=== PATIENT | female | born 1955 | race Caucasian/White ===

== ENCOUNTER 2017-09-23 00:06 | Emergency (ER) | payer BC, SELFPAY ==
[2017-09-23 00:08] VITALS: BP 141/72; PULSE 67; RESP 16; TEMP 35.8; O2SAT 100; BMI 27.6
--- NOTE | 2017-09-23 00:16 | NURSING ---
CALLED FOR EKG PER RN REQUEST, PULLED OLD EKG'S FOR
--- NOTE | 2017-09-23 00:26 | EKG12_ITS ---
Test Reason : CP Blood Pressure : / mmHG Vent. Rate : 063 BPM Atrial Rate : 063 BPM P-R Int : 156 ms QRS Dur : 070 ms QT Int : 408 ms P-R-T Axes : 075 054 053 degrees QTc Int : 417 ms Normal sinus rhythm Low voltage QRS Septal infarct , age undetermined Abnormal ECG Confirmed by DEIDRA GREGG, DIMITRI ([id number]), restaurant expeditor KORY FORD ([id number]) on 09/25/2017 2:48:48 PM Referred By: SARAH Confirmed By:DIMITRI GAY MD
--- NOTE | 2017-09-23 00:27 | RAD_ITS ---
STUDY: X-RAY CHEST REASON FOR EXAM: Female, 62 years old. Intermittent chest pain for one hour in region of left breast. TECHNIQUE: PA and lateral chest. COMPARISON: January 19, 2017. FINDINGS: The lungs are clear and expanded. There is no demonstrated pleural abnormality. Normal size heart. Normal mediastinum and yasmine. Normal visualized pulmonary arteries. Normal visualized aortic arch and descending thoracic aorta. Normal visualized thoracic spine. Normal visualized ribs, clavicles, and shoulders. There is no demonstrated abnormality of the visualized soft tissue structures of the upper abdomen. RAD/Chest PA and Lateral IMPRESSION: Normal x-ray examination of the chest. Electronically Signed: Blake Samson MD at 1:22 EDT , Service support ,
--- NOTE | 2017-09-23 00:28 | ED.VISSUMM ---
- ER Visit Summary Date of Service: 09/23/17 Chief Complaint: [] Left-sided chest pain History of Present Illness: The patient is a 62 F [] Physical Examination: When he of left-sided chest pain in her left breast intermittent last admitted a time. Waxes and wanes. She describes it as an pain. It hurts to push on it. She does have history of fibromyalgia and costochondritis. No history of heart disease. Last stress test was 5 years ago. No associated symptoms. Only cardiac risk factors hypertension. No PE risk factors. Test Results: EKG shows sinus at 63 with no acute ischemia or arrhythmia. Unchanged from June 2017. Emergency Department Course and Treatment: [] Patient did not want aspirin. Given Tylenol. She showed nothing acute. CBC shows a hemoglobin of 15.3. Chemistries normal except calcium 8.3. Troponin negative. Chest x-ray nothing acute. On reevaluation the patient feels significantly better. I have a low suspicion for acute PE or dissection. Have a low suspicion for acute coronary syndrome. This is very much reproducible. This is likely costochondritis or fibromyalgia related. Patient was offered a second troponin level 2 hours after her initial and she declined this. She understands the risk. She does not want to be admitted. She will follow-up as an outpatient return if she worsens. I think this is reasonable given how reproducible this is. Treatment Plan: [] Disposition: [] Impression: [] Left sided chest wall pain This note was generated with [employer] dictation software. It may contain incorrect words, spelling, and punctuation that were not noted in review of the chart prior to signing ED Disposition - Plan for ED Patient: Chief Complaint: Chest Pain Referrals: Jamie Collins MD [Primary Care Provider] -
[2017-09-23] MEDS: Acetaminophen 325 MG Tablet 650 MG PO (00:30)
[2017-09-23 00:34] LABS: Absolute Lymphocyte Count 1.92 X10^3/ul (0.83-4.51); Absolute Neutrophil Count 2.1 X10^3/uL (2.0-7.7); Basophil# 0.01 X10^3/uL; Basophil% 0.2 % (0-1); Eosinophil# 0.05 X10^3/uL; Eosinophils% 1.1 % (0-5); Hematocrit 44.2 % (37-47); Hemoglobin 15.3 g/dl (12.0-15.0); Lymphocyte # 1.92 X10^3/ul (4.0); Lymphocyte % 42.8 % (19-41); Mean Corp Hgb Conc 34.6 g/gl (32-36); Mean Corpuscular Hgb 30.2 pg (27.0-32.0); Mean Corpuscular Volume 87.4 fL (81-99); Mean Platelet Vol. 10.4 fl (6.2-12.0); Monocyte# 0.41 X10^3/uL; Monocyte% 9.1 % (0-10); Neutrophil % 46.8 % (47-70); Platelet Count 215 K/mm3 (150-450); RBC Distribution Width CV 13.3 % (11.6-14.6); RBC Distribution Width SD 42.4 fl (35.1-43.9); Red Blood Count 5.06 M/mm3 (4.2-5.4); White Blood Count 4.5 K/mm3 (4.4-11.0)
[2017-09-23 00:35] LABS: POSITIVE COUNT NO; POSITIVE DIFFERENTIAL NO; POSITIVE MORPHOLOGY NO
[2017-09-23 00:54] LABS: Anion Gap 6 (5-15); BUN 17 mg/dL (7-18); BUN/Creat Ratio 20.4 RATIO (10-20); Calcium,Total 8.3 mg/dL (8.5-10.1); Chloride 103 mmol/L (98-107); Creatinine, Serum 0.83 mg/dL (0.55-1.02); EST Glomerular Filtration Rate 74 mL/min (>60); Est Glom Filt Rate - Afr Amer 89 mL/min (>60); Estimated Creatinine Clearance 69.83 ml/min; Glucose 95 mg/dL (74-106); Sodium Level 139 mmol/L (136-145)
--- NOTE | 2017-09-23 01:11 | ED.DEP ---
ED Disposition - Plan for ED Patient: Chief Complaint: Chest Pain Instructions: ED Chest Pain Costochondritis Referrals: Jamie Collins MD [Primary Care Provider] -
[2017-09-23 01:18] VITALS: BP 129/80; PULSE 60; RESP 17; O2SAT 98
== END 2017-09-23 01:19 | disposition home or self-care (01) ==
LOC: ED 00:30
PROVIDERS: Emergency Provider Emergency Medicine; Family Provider Internal Medicine; PCP Internal Medicine
DX: R07.89 Other chest pain (principal); I10 Essential (primary) hypertension; M79.7 Fibromyalgia; Z79.899 Other long term (current) drug therapy
CPT/HCPCS: 71046; 80048; 84484; 85025; 93005; 99285; A4216

== ENCOUNTER 2017-11-10 23:38 | Emergency (ER) | payer BC, SELFPAY ==
[2017-11-10 23:39] VITALS: BP 136/77; PULSE 79; RESP 20; TEMP 36.7; O2SAT 98; BMI 28.7
--- NOTE | 2017-11-10 23:52 | EKG12_ITS ---
Test Reason : CP Blood Pressure : / mmHG Vent. Rate : 068 BPM Atrial Rate : 068 BPM P-R Int : 168 ms QRS Dur : 074 ms QT Int : 394 ms P-R-T Axes : 076 060 054 degrees QTc Int : 418 ms Normal sinus rhythm Septal infarct , age undetermined Abnormal ECG Confirmed by DEIDRA GREGG, DIMITRI ([id number]), book or script editor KORY FORD ([id number]) on 11/14/2017 2:54:38 PM Referred By: BAN Confirmed By:DIMITRI GAY MD
--- NOTE | 2017-11-10 23:53 | ED.VISSUMM ---
- ER Visit Summary Date of Service: 11/10/17 Chief Complaint: Chest pain History of Present Illness: The patient is a 62 F who presents for 2 hours of chest pain. Pain is substernal and radiates to the bilateral neck. Patient has intermittent sharp episodes with a squeezing sensation in the chest and sharp pain radiating into the neck, occurring every 15-30 minutes and lasting for a few seconds. Patient has dull pain at baseline that is constant. No associated nausea, vomiting, shortness of breath, cough, fever or other symptoms. Patient has a history of PVCs and PACs but states this feels different from palpitations. She has had this happen before but did not get evaluated at that time. Medical history includes fibromyalgia, anxiety, PVCs and PACs. No history of coronary artery disease, diabetes or hypercholesterolemia. Patient takes lisinopril for hypertension. Father had a heart attack at age 55. No history of DVT or PE or recent travel. Patient is not a smoker. Physical Examination: Vital signs: afebrile, hemodynamically stable, no hypoxia on room air General: well nourished, well developed, in no distress Skin: warm, dry, no rash, no pallor HEENT: normocephalic and atraumatic; PERRL, EOMI, moist mucous membranes Cardiovascular: regular rate and rhythm without murmurs, no peripheral edema, 2+ pulses all distal extremities, no JVD, chest nontender, no rash noted Respiratory: No increased work of breathing, lungs are clear to auscultation bilaterally, no rales, rhonchi or wheezing Abdominal: Abdomen is soft, nontender with normoactive bowel sounds, no guarding or rebound, no masses MSK: Moves all extremities, no deformities, normal strength Neuro: Awake and alert, oriented ?4. No facial droop, sensation and motor function intact and symmetric Test Results: Abnormal Lab Results 11/11/17 11/11/17 11/11/17 00:10 00:10 03:08 WBC 4.5 RBC 4.77 Hgb 14.3 Hct 42.7 MCV 89.5 MCH 30.0 MCHC 33.5 RDW 13.6 RDW Differential 44.5 H Plt Count 214 MPV 10.3 Immature Gran % (Auto) 0.000 Neut % (Auto) 41.2 L Lymph % (Auto) 47.8 H [place] % (Auto) 9.3 Eos % (Auto) 1.5 Baso % (Auto) 0.2 Absolute Neuts (auto) 1.9 L Absolute Lymphs (auto) 2.16 Total Counted Not Reportable Sodium 141 Potassium 4.3 Chloride 105 Carbon Dioxide 31.0 Anion Gap 5 BUN 12 Creatinine 0.76 Estim Creat Clear Calc 79.15 Est GFR (MDRD) Af Amer 99 Est GFR (MDRD) Non-Af 82 BUN/Creatinine Ratio 15.8 Glucose 93 Calcium 8.5 Troponin I < 0.015 < 0.015 TSH 1.41 Clinical Impression(s) from Imaging Studies Chest X-Ray 11/11/17 00:01 IMPRESSION: Stable chest, no acute cardiopulmonary disease. Electronically Signed: Blake Samson MD at 1:22 EDT , Service support , Emergency Department Course and Treatment: Chest pain workup was performed. Patient was given aspirin. She was having dull pain rated 3 out of 10, so nitroglycerin was ordered. Patient refused the nitro, despite a discussion on the importance of treating pain that may be cardiac in nature. EKG showed a sinus rhythm without ischemia or ectopy. Chest x-ray showed no acute process. Labs showed a normal troponin, normal TSH, no electrolyte, renal or hepatic derangements, no leukocytosis or anemia. On reevaluation patient stated she still had a very mild ache but still refused the nitro. She was given a GI cocktail, and reevaluation she was pain-free. Patient is low risk based on the ERASMO risk score and the heart score. Thus a repeat EKG and troponin were performed at 3 hours, with the troponin negative and the EKG still showing normal sinus rhythm without any ischemic changes. Patient is to follow-up as soon as possible with her family doctor to discuss the need for a stress test if she continues to have symptoms, and to discuss alternative causes of her pain, such as GERD. Patient agreed with this plan was discharged home pain-free. Treatment Plan: [] Disposition: [] Impression: Chest pain This note was generated with [employer] software. It may contain incorrect words, spelling, and punctuation that were not noted in review of the chart prior to signing ED Disposition - Plan for ED Patient: Disposition: Home or Assisted Living Chief Complaint: Chest Pain Instructions: ED Chest Pain NonCardiac Referrals: Jamie Collins MD [Primary Care Provider] - As soon as possible
--- NOTE | 2017-11-11 00:01 | RAD_ITS ---
STUDY: X-RAY CHEST REASON FOR EXAM: Female, 62 years old. Palpitations described as painful with radiation to throat. TECHNIQUE: PA and lateral chest. COMPARISON: September 23, 2017. FINDINGS: The lungs are clear and expanded. There is no demonstrated pleural abnormality. Normal size heart. Normal mediastinum and yasmine. Normal visualized pulmonary arteries. Normal visualized aortic arch and descending thoracic aorta. Normal visualized thoracic spine. Normal visualized ribs, clavicles, and shoulders. There is no demonstrated abnormality of the visualized soft tissue structures of the upper abdomen. RAD/Chest PA and Lateral IMPRESSION: Stable chest, no acute cardiopulmonary disease. Electronically Signed: Blake Samson MD at 1:22 EDT , Service support ,
[2017-11-11] MEDS: Aspirin 81 MG TAB.CHEW 324 MG PO (00:14)
--- NOTE | 2017-11-11 00:16 | NURSING ---
PT VERY ANXIOUS; DOES NOT WANT TO TAKE ORDERED NITRO TABS
[2017-11-11 00:28] LABS: Absolute Lymphocyte Count 2.16 X10^3/ul (0.83-4.51); Absolute Neutrophil Count 1.9 X10^3/uL (2.0-7.7); Basophil# 0.01 X10^3/uL; Basophil% 0.2 % (0-1); Eosinophil# 0.07 X10^3/uL; Eosinophils% 1.5 % (0-5); Hematocrit 42.7 % (37-47); Hemoglobin 14.3 g/dl (12.0-15.0); Lymphocyte # 2.16 X10^3/ul (4.0); Lymphocyte % 47.8 % (19-41); Mean Corp Hgb Conc 33.5 g/gl (32-36); Mean Corpuscular Volume 89.5 fL (81-99); Mean Platelet Vol. 10.3 fl (6.2-12.0); Monocyte# 0.42 X10^3/uL; Monocyte% 9.3 % (0-10); Neutrophil # 1.86 X10^3/uL (2.7-7.7); Neutrophil % 41.2 % (47-70); Platelet Count 214 K/mm3 (150-450); RBC Distribution Width CV 13.6 % (11.6-14.6); RBC Distribution Width SD 44.5 fl (35.1-43.9); Red Blood Count 4.77 M/mm3 (4.2-5.4); White Blood Count 4.5 K/mm3 (4.4-11.0)
[2017-11-11 00:29] LABS: POSITIVE COUNT NO; POSITIVE DIFFERENTIAL NO; POSITIVE MORPHOLOGY NO
[2017-11-11 00:47] LABS: Anion Gap 5 (5-15); BUN 12 mg/dL (7-18); BUN/Creat Ratio 15.8 RATIO (10-20); Calcium,Total 8.5 mg/dL (8.5-10.1); Chloride 105 mmol/L (98-107); Creatinine, Serum 0.76 mg/dL (0.55-1.02); EST Glomerular Filtration Rate 82 mL/min (>60); Est Glom Filt Rate - Afr Amer 99 mL/min (>60); Estimated Creatinine Clearance 79.15 ml/min; Glucose 93 mg/dL (74-106); Potassium 4.3 mmol/L (3.5-5.1); Sodium Level 141 mmol/L (136-145); Thyroid Stim Hormone (TSH) 1.41 uIU/mL (0.358-3.74)
[2017-11-11 01:10] VITALS: BP 123/63; PULSE 66; RESP 14; O2SAT 99
[2017-11-11 02:02] VITALS: BP 123/76; PULSE 67; RESP 15; O2SAT 98
--- NOTE | 2017-11-11 02:55 | EKG12_ITS ---
Test Reason : REPEAT Blood Pressure : / mmHG Vent. Rate : 065 BPM Atrial Rate : 065 BPM P-R Int : 166 ms QRS Dur : 070 ms QT Int : 410 ms P-R-T Axes : 076 059 056 degrees QTc Int : 426 ms Normal sinus rhythm Septal infarct , age undetermined Abnormal ECG Confirmed by DEIDRA GREGG, DIMITRI ([id number]), field map editor KORY FORD ([id number]) on 11/14/2017 2:55:17 PM Referred By: BAN Confirmed By:DIMITRI GAY MD
[2017-11-11 03:20] VITALS: PULSE 64; RESP 17; O2SAT 97
--- NOTE | 2017-11-11 03:36 | ED.DEP ---
ED Disposition - Plan for ED Patient: Disposition: Home or Assisted Living Chief Complaint: Chest Pain Instructions: ED Chest Pain NonCardiac Referrals: Jamie Collins MD [Primary Care Provider] - As soon as possible
[2017-11-11 03:45] VITALS: BP 131/75; PULSE 62; RESP 15; O2SAT 97
== END 2017-11-11 03:46 | disposition home or self-care (01) ==
PROVIDERS: Emergency Provider Emergency Medicine; Family Provider Internal Medicine; PCP Internal Medicine
DX: R07.89 Other chest pain (principal); Z82.49 Family history of ischemic heart disease and other diseases of the circulatory system; M79.7 Fibromyalgia; I10 Essential (primary) hypertension; Z79.899 Other long term (current) drug therapy
CPT/HCPCS: 71046; 80048; 84443; 84484; 85025; 93005; 99285; A4216

== ENCOUNTER 2017-11-14 18:57 | Emergency (ER) | payer BC, SELFPAY ==
[2017-11-14 18:58] VITALS: BP 116/82; PULSE 79; RESP 18; TEMP 36.1; O2SAT 98; BMI 28.0
--- NOTE | 2017-11-14 19:18 | ED.VISSUMM ---
- ER Visit Summary Date of Service: 11/14/17 Chief Complaint: Injury medial left ankle History of Present Illness: The patient is a 62 F who states she bumped the inside of her left ankle approximately 2 hours prior to presentation. While standing she experienced abrupt pain lasted 1-2 minutes and radiated toward the knee. She denies any paresthesia, anesthesia motors. She is able to bear weight. She has no other complaints please read written note Physical Examination: next field superior to the medial malleolus there is a subcutaneous hematoma. There is no pain the patient of the medial malleolus or lateral malleolus. There is no pain to palpation of the tarsal bones or metatarsal bones. DP and PT pulses are palpable. Test Results: None are indicated Emergency Department Course and Treatment: Patient was informed she has a contusion. 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 Treatment Plan: Ice, rest, elevation and anti-inflammatory medication since she has no contraindication Disposition: Discharged to home Impression: Contusion distal medial left leg initial encounter This note was generated with [employer] dictation software. It may contain incorrect words, spelling, and punctuation that were not noted in review of the chart prior to signing ED Disposition - Plan for ED Patient: Disposition: Home or Assisted Living Chief Complaint: Lower Extremity Injury Instructions: ED Contusion Lower Ext Referrals: Jamie Collins MD [Primary Care Provider] - 1 Week if not improving Additional Instructions: Take either 4 Advil every 8 hours for the next 2-3 days for pain or 2 Aleve every 12 hours for the next 2-3 days or pain.
--- NOTE | 2017-11-14 19:22 | ED.DCSUM_ITS ---
- ER Visit Summary Date of Service: 11/14/17 Chief Complaint: Injury medial left ankle History of Present Illness: The patient is a 62 F who states she bumped the inside of her left ankle approximately 2 hours prior to presentation. While standing she experienced abrupt pain lasted 1-2 minutes and radiated toward the knee. She denies any paresthesia, anesthesia motors. She is able to bear weight. She has no other complaints please read written note Physical Examination: next field superior to the medial malleolus there is a subcutaneous hematoma. There is no pain the patient of the medial malleolus or lateral malleolus. There is no pain to palpation of the tarsal bones or metatarsal bones. DP and PT pulses are palpable. Test Results: None are indicated Emergency Department Course and Treatment: Patient was informed she has a contusion. 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 Treatment Plan: Ice, rest, elevation and anti-inflammatory medication since she has no contraindication Disposition: Discharged to home Impression: Contusion distal medial left leg initial encounter This note was generated with [employer] dictation software. It may contain incorrect words, spelling, and punctuation that were not noted in review of the chart prior to signing ED Disposition - Plan for ED Patient: Disposition: Home or Assisted Living Chief Complaint: Lower Extremity Injury Instructions: ED Contusion Lower Ext Referrals: Jamie Collins MD [Primary Care Provider] - 1 Week if not improving Additional Instructions: Take either 4 Advil every 8 hours for the next 2-3 days for pain or 2 Aleve every 12 hours for the next 2-3 days or pain.
== END 2017-11-14 19:39 | disposition home or self-care (01) ==
LOC: ED 19:23
PROVIDERS: Emergency Provider Emergency Medicine; Family Provider Internal Medicine; PCP Internal Medicine
DX: S80.12XA Contusion of left lower leg, initial encounter (principal); W22.8XXA Striking against or struck by other objects, initial encounter; Y93.9 Activity, unspecified; Y92.9 Unspecified place or not applicable; Y99.9 Unspecified external cause status; I10 Essential (primary) hypertension; Z79.899 Other long term (current) drug therapy
CPT/HCPCS: 99282

== ENCOUNTER 2018-06-21 19:02 | Emergency (ER) | payer BC, SELFPAY ==
[2018-06-21 19:03] VITALS: BP 150/82; PULSE 80; RESP 18; TEMP 35.6; O2SAT 93; BMI 27.4
--- NOTE | 2018-06-21 20:19 | CT_ITS ---
STUDY: CT ABDOMEN AND PELVIS WITH CONTRAST REASON FOR EXAM: Female, 63 years old. Mid to lower abdominal pain RADIATION DOSAGE (If Supplied By Facility): CTDIvol = ( 13.85 ) mGy, DLP = ( 679.26 ) mGycm TECHNIQUE: Transaxial images were obtained from the dome of the diaphragm to the symphysis pubis with oral contrast. 100ML ml of Isovue 300 contrast was administered. Sagittal and coronal images were reconstructed. Individualized dose optimization techniques were used for this CT. COMPARISON: None. FINDINGS: The visualized lung bases are unremarkable. The visualized portions of the heart are within normal limits. Normal liver. Normal gallbladder and extrahepatic biliary system. Normal spleen. Normal pancreas. Normal bilateral adrenal glands. Normal right kidney. Normal left kidney. Normal visualized stomach. Normal small intestine. Normal colon. The appendix is visualized and appears normal. There are calcified plaques of the abdominal aorta. Normal inferior vena cava. Normal retroperitoneum. Normal urinary bladder. Uterus and adnexal structures are unremarkable. Normal abdominal wall. There mild degenerative changes of the visualized thoracolumbar spine. CT/Abdomen/Pelvis WITH Contrast IMPRESSION: Mild degenerative changes of the visualized thoracal lumbar spine. Calcified plaques of the abdominal aorta. There is no evidence of free intra-abdominal or intrapelvic air, fluid, or inflammatory process. Electronically Signed: Darci Nicolas MD at 22:46 EST , Service support ,
[2018-06-21] MEDS: Mag Hydrox/Al Hydrox/Simeth 30 ML UDC PO (20:28)
[2018-06-21] MEDS: 0.9% Normal Saline 1,000 ML 1000 ML IV (20:28)
[2018-06-21 20:29] LABS: Absolute Neutrophil Count 3.7 X10^3/uL (2.0-7.7); Basophil# 0.02 X10^3/uL; Basophil% 0.4 % (0-1); Eosinophil# 0.02 X10^3/uL; Eosinophils% 0.4 % (0-5); Hematocrit 42.2 % (37-47); Hemoglobin 14.7 g/dl (12.0-15.0); Lymphocyte % 25.1 % (19-41); Mean Corp Hgb Conc 34.8 g/gl (32-36); Mean Corpuscular Hgb 29.9 pg (27.0-32.0); Mean Corpuscular Volume 85.9 fL (81-99); Mean Platelet Vol. 10.8 fl (6.2-12.0); Monocyte# 0.43 X10^3/uL; Monocyte% 7.7 % (0-10); Neutrophil % 66.4 % (47-70); POSITIVE COUNT NO; POSITIVE DIFFERENTIAL NO; POSITIVE MORPHOLOGY NO; Platelet Count 192 K/mm3 (150-450); RBC Distribution Width SD 40.2 fl (35.1-43.9); Red Blood Count 4.91 M/mm3 (4.2-5.4); White Blood Count 5.6 K/mm3 (4.4-11.0)
--- NOTE | 2018-06-21 20:32 | ED.DCSUM_ITS ---
- ER Visit Summary Date of Service: 06/21/18 Chief Complaint: Abdominal and chest pain History of Present Illness: The patient is a 63 F who presents for abdominal pain and chest pain since last night. Patient began having simultaneous sharp burning pain in the right substernal region in the suprapubic region last night. Episodes were brief and would occur together. Today she is having mid abdominal constant aching pain with the intermittent sharp pains that are radiating into the chest. She had an episode prior to presentation of similar pain in the left breast that lasted for several minutes and concerning the patient. She denies fever, cough, urinary symptoms, constipation, diarrhea, nausea or vomiting. She has not had similar pain in the past. She has a history of atypical chest pain, costochondritis, fibromyalgia and hypertension. She did not take any medicine for the pain. She is no history of appendectomy or cholecystectomy. Physical Examination: Vital signs: afebrile, hemodynamically stable, no hypoxia on room air General: well nourished, well developed, in no distress Skin: warm, dry, no rash, no pallor HEENT: normocephalic and atraumatic; PERRL, EOMI, moist mucous membranes Cardiovascular: regular rate and rhythm without murmurs, no peripheral edema, 2+ pulses all distal extremities no chest wall tenderness Respiratory: No increased work of breathing, lungs are clear to auscultation bilaterally, no rales, rhonchi or wheezing Abdominal: Abdomen is soft, mildly tender with normoactive bowel sounds, no guarding or rebound, no masses MSK: Moves all extremities, no deformities, normal strength Neuro: Awake and alert, oriented ?4. No facial droop, sensation and motor function intact and symmetric Test Results: Abnormal Lab Results 06/21/18 06/21/18 06/21/18 19:30 19:30 20:30 WBC 5.6 RBC 4.91 Hgb 14.7 Hct 42.2 MCV 85.9 MCH 29.9 MCHC 34.8 RDW 13.0 RDW Differential 40.2 Plt Count 192 MPV 10.8 Immature Gran % (Auto) 0.000 Neut % (Auto) 66.4 Lymph % (Auto) 25.1 [place] % (Auto) 7.7 Eos % (Auto) 0.4 Baso % (Auto) 0.4 Absolute Neuts (auto) 3.7 Absolute Lymphs (auto) 1.40 Total Counted Not Reportable Sodium 140 Potassium 3.7 Chloride 106 Carbon Dioxide 26.0 Anion Gap 8 BUN 25 H Creatinine 0.93 Estim Creat Clear Calc 62.68 Est GFR (MDRD) Af Amer 78 Est GFR (MDRD) Non-Af 65 BUN/Creatinine Ratio 26.8 H Glucose 97 Calcium 8.3 L Total Bilirubin 0.40 AST 31 ALT 42 Alkaline Phosphatase 64 Troponin I < 0.015 Total Protein 6.5 Albumin 3.6 Globulin 2.9 Albumin/Globulin Ratio 1.2 Lipase 201 Urine Color Straw Urine Clarity Clear Urine pH 7.0 Ur Specific [place] 1.005 Urine Protein Negative Urine Glucose (UA) Normal Urine Ketones Negative Urine Occult Blood Negative Urine Nitrite Negative Urine Bilirubin Negative Urine Urobilinogen Normal Ur Leukocyte Esterase 100 H Urine RBC 0 SEEN Urine WBC 0-5 SEEN Ur Squamous Epith Cells 0 SEEN Urine Bacteria RARE Urine Mucus 0 SEEN Clinical Impression(s) from Imaging Studies Abdomen/Pelvis CT 06/21/18 20:19 IMPRESSION: Mild degenerative changes of the visualized thoracal lumbar spine. Calcified plaques of the abdominal aorta. There is no evidence of free intra-abdominal or intrapelvic air, fluid, or inflammatory process. Electronically Signed: Darci Nicolas MD at 22:46 EST , Service support , Medications Given Discontinued Medications Al Hydroxide/Mg Hydroxide (Mylanta Ii) 30 ml PO X1 ONE Stop: 06/21/18 20:20 Last Admin: 06/21/18 20:28 Dose: 30 ml Sodium Chloride () 1,000 mls @ 1,000 mls/hr IV .Q1H ONE Stop: 06/21/18 21:18 Last Admin: 06/21/18 20:28 Dose: 1,000 mls/hr Lidocaine HCl (Xylocaine Viscous) 15 ml PO X1 ONE Stop: 06/21/18 20:20 Last Admin: 06/21/18 20:28 Dose: 15 ml Multi-Ingredient GI Drug () 1 each PO X1 ONE Stop: 06/21/18 20:20 Last Admin: 06/21/18 20:28 Dose: 1 each Emergency Department Course and Treatment: Patient presents with mainly abdominal complaints, with associated sharp burning pains in the chest which may be referred pain from the abdomen. EKG was performed and showed a sinus rhythm without any ischemia or ectopy. Troponin negative. CBC showed no leukocytosis or anemia. Chemistry panel and hepatic panel were unremarkable. Urinalysis negative for infection. CT of the abdomen and pelvis was performed with contrast to evaluate for any acute intra-abdominal process, and it was u nremarkable. Patient had received a GI cocktail for her discomfort and normal saline for hydration, as her BUN to creatinine ratio was elevated. On reevaluation, patient was feeling better. SHe did complain of a brief sharp burning pain in her back that radiated up to her head, similar to the other brief sharp burning pain she was having in her abdomen and chest in various locations. Patient's symptoms do not seem consistent with an emergent process that would require admission or further testing. Patient was discharged home and is to use [id number] pain medication as needed. Patient agreed with this plan was discharged. Treatment Plan: [] Disposition: Abdominal pain of unknown etiology, mild dehydration Impression: [] This note was generated with [employer] dictation software. It may contain incorrect words, spelling, and punctuation that were not noted in review of the chart prior to signing ED Disposition - Plan for ED Patient: Disposition: Home or Assisted Living Chief Complaint: Abd Pain Instructions: ED Abdominal Pain Unkn Cause Referrals: Jamie Collins MD [Primary Care Provider] - 3-5 Days if not improving Additional Instructions: Your workup for the cause of your abdominal pain and chest pain showed no life- threatening findings. Your CAT scan, labs, and urine were normal. Please follow-up with your doctor if you continue to have symptoms. Use [id number] pain medication as needed for pain. If you have any worsening of your condition or any new concerning symptoms, please return immediately to the emergency department for another evaluation.
[2018-06-21 20:33] LABS: Mucous, Urine 0 SEEN /hpf (<or=2+); Red Blood Cells-Urine 0 SEEN /hpf (0-5); Squamous Epithelial Cells - UA 0 SEEN /hpf (5-10)
[2018-06-21 20:36] LABS: Color, Urine Straw (Yellow); Glucose, Dipstick Normal (Normal); Ketone-Dipstick Negative (Negative); Leukocyte Esterase-Dipstick 100 /ul (Negative); Nitrite-Dipstick Negative (Negative); Occult Blood-Urine Negative /ul (Negative); Protein-Dipstick Negative (Negative); Specific Gravity, Urine 1.005 (1.002-1.030); Urine Bilirubin Dipstick Negative (Negative); Urine Clarity Clear (Clear); Urine Urobilinogen Normal (Normal)
[2018-06-21 20:41] LABS: Bacteria RARE /hpf (None Seen); White Blood Cells 0-5 SEEN /hpf (0-5)
[2018-06-21 20:43] LABS: ALB/GLOB Ratio 1.2 RATIO (0.9-2.4); AST(SGOT) 31 U/L (15-37); Alanine Aminotransfer ALT/SGPT 42 U/L (13-56); Albumin, Serum 3.6 g/dL (3.2-5.0); Alkaline Phosphatase 64 U/L (45-117); Anion Gap 8 (5-15); BUN 25 mg/dL (7-18); BUN/Creat Ratio 26.8 RATIO (10-20); Calcium,Total 8.3 mg/dL (8.5-10.1); Chloride 106 mmol/L (98-107); Creatinine, Serum 0.93 mg/dL (0.55-1.02); EST Glomerular Filtration Rate 65 mL/min (>60); Est Glom Filt Rate - Afr Amer 78 mL/min (>60); Estimated Creatinine Clearance 62.68 ml/min; Globulin 2.9 g/dL (2.2-4.2); Glucose 97 mg/dL (74-106); Lipase 201 U/L (73-393); Potassium 3.7 mmol/L (3.5-5.1); Protein, Total 6.5 g/dL (6.4-8.2); Sodium Level 140 mmol/L (136-145)
--- NOTE | 2018-06-21 21:57 | ED.RN ---
MD AWARE THAT THE PT IS C/O R SHOULDER PAIN THAT RADIATES TO HER JAW.PT REQUEST NO PAIN MEDS,WANTS TO KNOW.
[2018-06-21 21:58] VITALS: RESP 16
--- NOTE | 2018-06-21 22:51 | DCINST.ED_ITS ---
ED Disposition - Plan for ED Patient: Disposition: Home or Assisted Living Chief Complaint: Abd Pain Instructions: ED Abdominal Pain Unkn Cause Referrals: Jamie Collins MD [Primary Care Provider] - 3-5 Days if not improving Additional Instructions: Your workup for the cause of your abdominal pain and chest pain showed no life- threatening findings. Your CAT scan, labs, and urine were normal. Please follow-up with your doctor if you continue to have symptoms. Use [id number] pain medication as needed for pain. If you have any worsening of your condition or any new concerning symptoms, please return immediately to the emergency department for another evaluation.
[2018-06-21 23:12] VITALS: BP 141/85; PULSE 78; RESP 18; O2SAT 97
== END 2018-06-21 23:13 | disposition home or self-care (01) ==
PROVIDERS: Emergency Provider Emergency Medicine; Family Provider Internal Medicine; PCP Internal Medicine
DX: R10.9 Unspecified abdominal pain (principal); E86.0 Dehydration; R07.9 Chest pain, unspecified; I10 Essential (primary) hypertension; M79.7 Fibromyalgia; Z79.899 Other long term (current) drug therapy
CPT/HCPCS: 74177; 80053; 81001; 83690; 84484; 85025; 93005; 96360; 96361; 99285; J7030; Q9967; A4216

== ENCOUNTER 2018-06-29 23:56 | Emergency (ER) | payer BC, SELFPAY ==
[2018-06-29 23:57] VITALS: BP 152/69; PULSE 98; RESP 16; TEMP 37; O2SAT 100; BMI 27.9
--- NOTE | 2018-06-30 00:28 | EKG12_ITS ---
Test Reason : PALPITATIONS Blood Pressure : / mmHG Vent. Rate : 088 BPM Atrial Rate : 088 BPM P-R Int : 158 ms QRS Dur : 070 ms QT Int : 358 ms P-R-T Axes : 084 052 053 degrees QTc Int : 433 ms Normal sinus rhythm Septal infarct , age undetermined Abnormal ECG Confirmed by MILDRED GREGG, CARISSA ([id number]), material expeditor KORY FORD ([id number]) on 07/02/2018 1:37:57 PM Referred By: JOSELITO Confirmed By:CARISSA LEVY MD
--- NOTE | 2018-06-30 00:28 | RAD_ITS ---
STUDY: X-RAY CHEST REASON FOR EXAM: Female, 63 years old. Heart racing. TECHNIQUE: Single AP portable view of the chest. COMPARISON: 11/11/2017. FINDINGS: The lungs are clear and expanded. There is no demonstrated pleural abnormality. Normal size heart. Normal mediastinum and yasmine. Normal visualized pulmonary arteries. Normal visualized aortic arch and descending thoracic aorta. Normal visualized thoracic spine. Normal visualized ribs, clavicles, and shoulders. There is no demonstrated abnormality of the visualized soft tissue structures of the upper abdomen. RAD/Chest 1 View (Portable) IMPRESSION: Normal x-ray examination of the chest. Electronically Signed: Dannie Moreau MD at 1:06 EST , Service support ,
[2018-06-30] MEDS: Aspirin 81 MG TAB.CHEW 324 MG PO (00:53)
[2018-06-30] MEDS: 0.9% Normal Saline 1,000 ML 150 ML IV (00:53)
[2018-06-30 01:01] VITALS: PULSE 75; RESP 16; O2SAT 99
[2018-06-30 01:08] LABS: Absolute Lymphocyte Count 1.54 X10^3/ul (0.83-4.51); Absolute Neutrophil Count 1.8 X10^3/uL (2.0-7.7); Basophil# 0.01 X10^3/uL; Basophil% 0.3 % (0-1); Eosinophil# 0.05 X10^3/uL; Eosinophils% 1.3 % (0-5); Hematocrit 42.8 % (37-47); Hemoglobin 14.4 g/dl (12.0-15.0); Lymphocyte # 1.54 X10^3/ul (4.0); Lymphocyte % 39.9 % (19-41); Mean Corp Hgb Conc 33.6 g/gl (32-36); Mean Corpuscular Hgb 29.1 pg (27.0-32.0); Mean Corpuscular Volume 86.5 fL (81-99); Mean Platelet Vol. 9.9 fl (6.2-12.0); Monocyte# 0.47 X10^3/uL; Monocyte% 12.2 % (0-10); Neutrophil # 1.79 X10^3/uL (2.7-7.7); Neutrophil % 46.3 % (47-70); Platelet Count 188 K/mm3 (150-450); RBC Distribution Width CV 13.3 % (11.6-14.6); RBC Distribution Width SD 42.5 fl (35.1-43.9); Red Blood Count 4.95 M/mm3 (4.2-5.4); White Blood Count 3.9 K/mm3 (4.4-11.0)
[2018-06-30 01:09] LABS: POSITIVE COUNT NO; POSITIVE DIFFERENTIAL NO; POSITIVE MORPHOLOGY NO
[2018-06-30 01:28] LABS: Anion Gap 7 (5-15); BUN 15 mg/dL (7-18); BUN/Creat Ratio 20.9 RATIO (10-20); Calcium,Total 8.6 mg/dL (8.5-10.1); Chloride 107 mmol/L (98-107); Creatinine, Serum 0.72 mg/dL (0.55-1.02); EST Glomerular Filtration Rate 87 mL/min (>60); Est Glom Filt Rate - Afr Amer 106 mL/min (>60); Estimated Creatinine Clearance 80.32 ml/min; Glucose 90 mg/dL (74-106); Potassium 4.1 mmol/L (3.5-5.1); Sodium Level 142 mmol/L (136-145)
--- NOTE | 2018-06-30 01:48 | EKG12_ITS ---
Test Reason : REPEAT Blood Pressure : / mmHG Vent. Rate : 070 BPM Atrial Rate : 070 BPM P-R Int : 164 ms QRS Dur : 066 ms QT Int : 384 ms P-R-T Axes : 083 065 062 degrees QTc Int : 414 ms Normal sinus rhythm Septal infarct , age undetermined Abnormal ECG Confirmed by MILDRED GREGG, CARISSA ([id number]), newspaper or periodical editor KORY FORD ([id number]) on 07/02/2018 1:38:19 PM Referred By: JOSELITO Confirmed By:CARISSA LEVY MD
[2018-06-30 02:46] VITALS: PULSE 79; RESP 20; O2SAT 97
[2018-06-30 03:23] VITALS: PULSE 74; RESP 16; O2SAT 97
--- NOTE | 2018-06-30 04:00 | ED.VISSUMM ---
- ER Visit Summary Date of Service: 06/30/18 Chief Complaint: Palpitations History of Present Illness: The patient is a [address] Medrano and Dr. Collins. She reports that approximately 11:30 PM while sitting at her desk she had the onset of palpitations. She describes it as a fast, regular heart rate the last approximately 30 minutes. States that she used her blood pressure monitor found that her heart rate was 116. States that during this episode she had a diffuse tightness throughout her chest that was 5-10 at worst. States that the tightness resolved as her heart rate came back to normal. This was worsened by nothing including exertion. It was also relieved by nothing. Reports that she did feel mildly short of breath and diaphoretic with this. No associated nausea or vomiting. Patient denies any chest pain or change in dyspnea exertion in the past month. She denies any other complaints. Physical Examination: Vitals: Stable. Afebrile. General: Well-nourished and well-developed. Head: Normocephalic atraumatic. Neck: Supple, no lymphadenopathy. No JVD. Nontender. Cardiovascular: Regular rate and rhythm. No murmurs. Respiratory: No respiratory distress. Clear to auscultation bilaterally. Mild diffuse tenderness palpation over her chest. Abdominal: Soft, nontender, nondistended, normal bowel sounds. No guarding, rebound, or peritoneal signs. Back: Nontender. Extremities: Nontender, no edema. Skin: Normal color, no rash. Neurologic: Alert and oriented ?3. Cranial nerves II through XII are intact. Normal strength and sensation. Psych: Normal affect. Test Results: EKG is sinus at [address] changes. Is unchanged from June [id number]. Repeat EKG is unchanged. CBC is more for a white count of 3.9, 7 neutrophils of 46, monocytes 12. Chem-7 is normal. Troponin is negative. Repeat troponin is negative. Chest x-ray is normal. Emergency Department Course and Treatment: Patient was treated with aspirin. She is resting comfortably. She has had no appreciable ectopy on the monitor. Treatment Plan: I discussed the patient's treatment options with her. She would like to go home. I feel that a reasonable course of action. She is instructed follow-up Dr. Medrano as soon as possible. Return to the emergency department for any recurrent or worsening symptoms. Disposition: Return to the emergency department for any worsening symptoms. Impression: 1. Atypical chest pain. 2. Palpitations. 3. ERASMO score of 0. This note was generated with [employer] dictation software. It may contain incorrect words, spelling, and punctuation that were not noted in review of the chart prior to signing ED Disposition - Plan for ED Patient: Chief Complaint: Palpitations Instructions: ED Palpitations Referrals: Gumaro Campa MD [STAFF PHYSICIAN] - As soon as possible
[2018-06-30 04:03] VITALS: BP 123/69; PULSE 72; RESP 15; O2SAT 96
[2018-06-30 04:29] VITALS: BP 123/69; PULSE 72; RESP 15; O2SAT 96
== END 2018-06-30 04:30 | disposition home or self-care (01) ==
LOC: ED 06-30 00:53
PROVIDERS: Emergency Provider Emergency Medicine; Family Provider Internal Medicine; PCP Internal Medicine
DX: R07.89 Other chest pain (principal); R00.2 Palpitations; R06.02 Shortness of breath; I10 Essential (primary) hypertension; I49.3 Ventricular premature depolarization; I49.1 Atrial premature depolarization; M79.7 Fibromyalgia; Z79.899 Other long term (current) drug therapy
CPT/HCPCS: 71045; 80048; 84484; 85025; 93005; 96360; 96361; 99285; J7030; A4216

== ENCOUNTER 2018-08-27 18:51 | Emergency (ER) | payer BC, SELFPAY ==
[2018-08-27 18:52] VITALS: BP 155/84; PULSE 67; RESP 15; TEMP 36.4; O2SAT 99; BMI 27.2
[2018-08-27 19:10] VITALS: BP 132/83; PULSE 72; RESP 17; O2SAT 98
--- NOTE | 2018-08-27 19:17 | EKG12_ITS ---
Test Reason : Blood Pressure : / mmHG Vent. Rate : 072 BPM Atrial Rate : 072 BPM P-R Int : 156 ms QRS Dur : 066 ms QT Int : 374 ms P-R-T Axes : 055 051 046 degrees QTc Int : 409 ms Normal sinus rhythm Possible Left atrial enlargement Septal infarct , age undetermined Abnormal ECG Confirmed by DEIDRA GREGG, DIMITRI ([id number]), supervising film or videotape editor KORY FORD ([id number] on 08/31/2018 2:05:28 PM Referred By: SAÚL Confirmed By:DIMITRI GAY MD
--- NOTE | 2018-08-27 19:42 | ED.VISSUMM ---
- ER Visit Summary Date of Service: 08/27/18 Chief Complaint: Palpitations History of Present Illness: The patient is a 63 F history of palpitations secondary to PACs and PVCs. No thyroid history. She states she did have a TSH done in June it was normal. She also had a recent stress echo done approximately 3 weeks ago it was unremarkable. She has been treated in the past for hypertension but only uses lisinopril as needed she states normally her blood pressure runs well. She denies any chest pain. No shortness of breath. She does use caffeine but not excessively and drinks wine about daily. She states she has been sleeping normally. She has had some increased stress. No exertional chest pain or dyspnea. Physical Examination: Very well-appearing 7-year-old female. Vital signs are stable afebrile. Pulse ox 90% on room air no hypoxia. H EENT exam unremarkable. Neck nontender no thyromegaly. No lymphadenopathy. Lungs clear to auscultation bilaterally. Heart regular rate and rhythm no murmur. She has had very infrequent PVC from time to time. Abdomen is soft and nontender. Normal bowel sounds no peritoneal signs. Extremities moves all 4. Calves nontender without edema no cords. Neurologically she is awake alert with no focal motor or sensory deficits. Test Results: CBC normal. Chemistries unremarkable normal creatinine and gap. Troponin normal. EKG sinus rhythm rate of 72 with no acute abnormalities on the EKG there was no PACs or PVCs. She had a few PVCs on the monitor. Patient did not want a chest x-ray. Emergency Department Course and Treatment: Patient's exam is normal except for very infrequent PVCs. We will check screening labs are doing well she will be discharged to home. Repeat exam she is doing well at 2050. She and I discussed her test results and she is comfortable being discharged home with outpatient follow-up as needed. Treatment Plan: Follow-up with her primary care physician as needed. Continue your current medications. Disposition: Discharge Impression: Palpitations secondary to PVCs This note was generated with [employer] software. It may contain incorrect words, spelling, and punctuation that were not noted in review of the chart prior to signing ED Disposition - Plan for ED Patient: Referrals: Jamie Collins MD [Primary Care Provider] -
--- NOTE | 2018-08-27 19:45 | ED.DCSUM_ITS ---
- ER Visit Summary Date of Service: 08/27/18 Chief Complaint: Palpitations History of Present Illness: The patient is a 63 F history of palpitations secondary to PACs and PVCs. No thyroid history. She states she did have a TSH done in June it was normal. She also had a recent stress echo done approxim ately 3 weeks ago it was unremarkable. She has been treated in the past for hypertension but only uses lisinopril as needed she states normally her blood pressure runs well. She denies any chest pain. No shortness of breath. She does use caffeine but not excessively and drinks wine about daily. She states she has been sleeping normally. She has had some increased stress. No exertional chest pain or dyspnea. Physical Examination: Very well-appearing 7-year-old female. Vital signs are stable afebrile. Pulse ox 90% on room air no hypoxia. H EENT exam unremarkable. Neck nontender no thyromegaly. No lymphadenopathy. Lungs clear to auscultation bilaterally. Heart regular rate and rhythm no murmur. She has had very infrequent PVC from time to time. Abdomen is soft and nontender. Normal bowel sounds no peritoneal signs. Extremities moves all 4. Calves nontender without edema no cords. Neurologically she is awake alert with no focal motor or sensory deficits. Test Results: CBC normal. Chemistries unremarkable normal creatinine and gap. Troponin normal. EKG sinus rhythm rate of 72 with no acute abnormalities on the EKG there was no PACs or PVCs. She had a few PVCs on the monitor. Patient did not want a chest x-ray. Emergency Department Course and Treatment: Patient's exam is normal except for very infrequent PVCs. We will check screening labs are doing well she will be discharged to home. Repeat exam she is doing well at 2050. She and I discussed her test results and she is comfortable being discharged home with outpatient follow-up as needed. Treatment Plan: Follow-up with her primary care physician as needed. Continue your current medications. Disposition: Discharge Impression: Palpitations secondary to PVCs This note was generated with [employer] software. It may contain incorrect words, spelling, and punctuation that were not noted in review of the chart prior to signing ED Disposition - Plan for ED Patient: Referrals: Jamie Collins MD [Primary Care Provider] -
[2018-08-27 19:54] LABS: Absolute Lymphocyte Count 1.25 X10^3/ul (0.83-4.51); Absolute Neutrophil Count 2.1 X10^3/uL (2.0-7.7); Basophil# 0.03 X10^3/uL; Basophil% 0.8 % (0-1); Eosinophil# 0.03 X10^3/uL; Eosinophils% 0.8 % (0-5); Hematocrit 43.6 % (37-47); Hemoglobin 14.5 g/dl (12.0-15.0); Lymphocyte # 1.25 X10^3/ul (4.0); Lymphocyte % 33.8 % (19-41); Mean Corp Hgb Conc 33.3 g/gl (32-36); Mean Corpuscular Hgb 29.6 pg (27.0-32.0); Mean Platelet Vol. 9.9 fl (6.2-12.0); Monocyte# 0.32 X10^3/uL; Monocyte% 8.6 % (0-10); Neutrophil # 2.06 X10^3/uL (2.7-7.7); Neutrophil % 55.7 % (47-70); Platelet Count 179 K/mm3 (150-450); RBC Distribution Width CV 13.7 % (11.6-14.6); RBC Distribution Width SD 44.8 fl (35.1-43.9); White Blood Count 3.7 K/mm3 (4.4-11.0)
[2018-08-27 19:55] LABS: POSITIVE COUNT NO; POSITIVE DIFFERENTIAL NO; POSITIVE MORPHOLOGY NO
[2018-08-27 20:23] LABS: Anion Gap 5 (5-15); BUN 18 mg/dL (7-18); BUN/Creat Ratio 22.3 RATIO (10-20); Calcium,Total 9.1 mg/dL (8.5-10.1); Chloride 108 mmol/L (98-107); Creatinine, Serum 0.81 mg/dL (0.55-1.02); EST Glomerular Filtration Rate 76 mL/min (>60); Est Glom Filt Rate - Afr Amer 92 mL/min (>60); Estimated Creatinine Clearance 69.61 ml/min; Glucose 86 mg/dL (74-106); Potassium 3.9 mmol/L (3.5-5.1); Sodium Level 141 mmol/L (136-145)
[2018-08-27 20:37] VITALS: BP 145/87; PULSE 73; RESP 18; O2SAT 97
--- NOTE | 2018-08-27 20:52 | ED.DEP ---
ED Disposition - Plan for ED Patient: Disposition: Home or Assisted Living Instructions: ED Palpitations, Premature Ventricular Contractions Referrals: Jamie Collins MD [Primary Care Provider] - As Needed
[2018-08-27 21:13] VITALS: BP 145/87; PULSE 73
== END 2018-08-27 21:13 | disposition home or self-care (01) ==
PROVIDERS: Emergency Provider Emergency Medicine; Family Provider Internal Medicine; PCP Internal Medicine
DX: I49.3 Ventricular premature depolarization (principal); I10 Essential (primary) hypertension; M79.7 Fibromyalgia; Z79.899 Other long term (current) drug therapy
CPT/HCPCS: 80048; 84484; 85025; 93005; 99283

== ENCOUNTER 2018-12-30 00:09 | Emergency (ER) | payer BC, SELFPAY ==
[2018-12-30 00:10] VITALS: BP 136/72; PULSE 85; RESP 16; TEMP 36.7; O2SAT 97; BMI 27.6
--- NOTE | 2018-12-30 00:23 | ED.VIS.GEN ---
History of Present Illness Chief Complaint: Edema Informant: Patient Narrative: Stated this evening she noticed a knot behind her left knee. Is not hurting currently but she has some sharp pains earlier tonight. She was unsure what the cause was. She is never had a blood clot. She went to make sure she did have one. No redness. She did not take anything for it. She was down doing work when she noticed it on her knees. Past Medical History - Allergies and Home Meds Allergies/Adverse Reactions: Allergies Latex, Natural Rubber Adverse Reaction (Verified 12/30/18 00:12) Unknown pseudoephedrine Adverse Reaction (Verified 12/30/18 00:12) Unknown Primary Care Physician: Jamie Collins MD [Primary Care Provider] - Prior records reviewed: Yes Past Medical History: - - Reviewed Surgical History: noncontributory Smoking Status: Former smoker Alcohol: None Drugs: None Review of Systems General: Denies: Chills, Fever, Sweats Eyes: Denies: Visual changes - bilaterally, Diplopia ENT: Denies: Rhinorrhea, Sore throat Cardiovascular: Denies: Chest pain, Palpitations Respiratory: Denies: Dyspnea, Cough, Dyspnea on exertion Gastrointestinal: Denies: Abdominal pain, Nausea, Vomiting, Diarrhea, Melena, Hematochezia Genitourinary: Denies: Dysuria, Hematuria, Frequency Musculoskeletal: Reports: Swelling, Extremity Pain. Denies: Back pain Skin: Denies: Rash, Wounds Neurological: Denies: Headache, Weakness, Numbness Physical Exam Vital Signs/Narrative: Vital Signs Temp Pulse Resp BP Pulse Ox 12/30/18 00:10 98.0 F 85 16 136/72 H 97 General: Well nourished, Well developed, No Acute Distress Head: Normocephalic, Atraumatic Eyes: Perrl, EOMI ENT: Moist mucous membranes, No rhinorrhea Neck: Supple, Nontender Cardiovascular: Regular rate, Regular rhythm, No murmurs Respiratory: No distress, CTA bilaterally, Chest nontender Abdomen: Soft, Nontender, Nondistended, Normal bowel sounds Back: Nontender, Normal Inspection Extremities: - - She has a very small popliteal cyst on the left side. There is no inflammation or redness. Is slightly tender to touch. Distal extremity exam normal. Negative for: Nontender, No edema Skin: Normal color, No rash Neurological: Alert, Oriented x3, Cranial nerves II-XII grossly intact, Normal Strength, Normal Sensation Psychological: Normal affect, Normal Mood Diagnostic/Tx/Re-eval - Medical Decision Making This time the patient has a Calvillo's cyst. It is in the popliteal fossa. She was given Filemon wrap and will use Tylenol and ibuprofen and will follow up with orthopedics if needed ED Disposition - Plan for ED Patient: Disposition: Home or Assisted Living Diagnosis: Popliteal cyst, unruptured Instructions: Calvillo's Cyst Referrals: Jamie Collins MD [Primary Care Provider] - Jim Keller MD [STAFF PHYSICIAN] -
[2018-12-30 00:51] VITALS: BP 134/79; PULSE 71; RESP 18; O2SAT 98
--- NOTE | 2018-12-30 00:54 | ED.RN ---
THIS NURSE REVIEWED D/C INSTRUCTIONS WITH PT. PT VERBALIZED UNDERSTANDING OF INSTRUCTIONS. PT DENIES FURTHER NEEDS OR QUESTIONS AT THIS TIME. PT AMBULATES FROM ROOM ON OWN WITHOUT ASSISTANCE FROM STAFF
== END 2018-12-30 00:55 | disposition home or self-care (01) ==
PROVIDERS: Emergency Provider Emergency Medicine; Family Provider Internal Medicine; PCP Internal Medicine
DX: M71.22 Synovial cyst of popliteal space [Baker], left knee (principal); Z87.891 Personal history of nicotine dependence
CPT/HCPCS: 99282

== ENCOUNTER 2019-08-27 23:27 | Emergency (ER) | payer SELFPAY ==
[2019-08-27 23:28] VITALS: BP 124/64; PULSE 87; RESP 14; TEMP 36.7; O2SAT 97; BMI 30.5
--- NOTE | 2019-08-28 00:53 | ED.DCSUM_ITS ---
History of Present Illness Chief Complaint: Lower Extremity Injury Narrative: Patient presenting secondary to left calf pain. Patient reports that tonight she had a sudden onset of atraumatic left calf pain and pain behind her left knee. She reports that she has had similar symptoms in the past secondary to a Calvillo's cyst. Pain is intermittent, does not seem to have any sort of exacerbating relieving factors. No numbness or weakness. Patient denies that she has any sort of chest pain or shortness of breath associated with this, although she does have intermittent chest pain that she relates to having fibromyalgia. She denies any history of DVT or PE. She did have a history of long travel about 3 to 4 weeks ago where she was in a car for 5 hours with multiple stops. Patient is not on any hormone replacement therapy. She denies any hemoptysis. She denies any injuries lifting twisting pushing or pulling although she did do yoga last night. Review of systems otherwise negative. Past Medical History - Allergies and Home Meds Allergies/Adverse Reactions: Allergies Latex, Natural Rubber Adverse Reaction (Verified 08/27/19 23:28) Unknown pseudoephedrine Adverse Reaction (Verified 08/27/19 23:28) Unknown Primary Care Physician: Jamie Collins MD [Primary Care Provider] - Past Medical History: - - Fibromyalgia Surgical History: noncontributory Smoking Status: Former smoker Review of Systems All systems negative except as indicated General: Denies: Chills, Fever, Sweats Eyes: Denies: Visual changes - bilaterally, Diplopia ENT: Denies: Rhinorrhea, Sore throat Cardiovascular: Reports: Chest pain Respiratory: Denies: Dyspnea, Cough, Dyspnea on exertion Gastrointestinal: Denies: Abdominal pain, Nausea, Vomiting, Diarrhea, Melena, Hematochezia Genitourinary: Denies: Dysuria, Hematuria, Frequency Musculoskeletal: Reports: Extremity Pain Skin: Denies: Rash, Wounds Neurological: Denies: Headache, Weakness, Numbness Physical Exam Vital Signs/Narrative: Vital Signs Temp Pulse Resp BP Pulse Ox 08/27/19 23:28 98.0 F 87 14 124/64 H 97 - Extremity Exam Left Knee: - - Examination the patient's left leg shows normal range of motion o f the hip knee ankle and foot with normal sensation over all dermatomes. There is no appreciable swelling or palpable cord. Patient has no reproducible tenderness to palpation. She does appear to have a palpable Calvillo's cyst. Normal DP and PT pulses. No abnormal skin changes noted. General: Well nourished, Well developed Head: Normocephalic, Atraumatic Eyes: Perrl, EOMI Neck: Nontender, Full ROM Cardiovascular: Regular rate, Regular rhythm, No murmurs Respiratory: No distress, CTA bilaterally, Chest nontender Skin: Normal color, No rash Neurological: Alert, Oriented x3, Cranial nerves II-XII grossly intact, Normal Strength, Normal Sensation Psychological: Normal affect Diagnostic/Tx/Re-eval - Medical Decision Making Patient presented with calf pain. I feel that she is relatively low risk for DVT. Ultrasound was not available, so I performed a bedside ultrasound and visualize the patient's left femoral vein and left popliteal veins with good compression and good augmentation. No evidence of DVT at these 2 points. I do not feel that empiric anticoagulation is indicated. Patient will be provided w ith a prescription for formal outpatient ultrasound with results to be sent to her primary care physician. Her pain is likely muscular, she was recommended compression and ibuprofen. ED Disposition - Plan for ED Patient: Disposition: Home or Assisted Living Diagnosis: Pain of left calf Instructions: Calvillo's Cyst Referrals: Jamie Collins MD [Primary Care Provider] - 3-5 Days
== END 2019-08-28 01:06 | disposition home or self-care (01) ==
PROVIDERS: Emergency Provider Emergency Medicine; PCP Internal Medicine
DX: M79.662 Pain in left lower leg (principal); M79.7 Fibromyalgia; Z87.891 Personal history of nicotine dependence
CPT/HCPCS: 99282

== ENCOUNTER 2020-04-10 15:56 | Observation (INO) | payer MEDICAID, SELFPAY ==
[2020-04-10] VITALS (8 sets, daily range): BP systolic 111–154; BP diastolic 54–96; PULSE 65–90; RESP 13–16; TEMP 36.3–36.9; O2SAT 97–100; BMI 28.9; BMI 28.5; BMI 28.6
--- NOTE | 2020-04-10 16:19 | EKG12_ITS ---
Test Reason : CP ADMIT Blood Pressure : / mmHG Vent. Rate : 063 BPM Atrial Rate : 063 BPM P-R Int : 158 ms QRS Dur : 078 ms QT Int : 410 ms P-R-T Axes : 060 049 047 degrees QTc Int : 419 ms Normal sinus rhythm Septal infarct , age undetermined Abnormal ECG Confirmed by MILDRED GREGG, CARISSA ([id number]), editorial writer MARGIE DEY ([id number]) on 04/13/2020 10:22:34 AM Referred By: Ariana Landers Confirmed By:CARISSA LEVY MD
--- NOTE | 2020-04-10 16:19 | RAD_ITS ---
STUDY: X-RAY CHEST REASON FOR EXAM: Female, 65 years old. Palpitations and chest tightness starting last night. TECHNIQUE: Single AP portable view of the chest. COMPARISON: June 30, 2018 FINDINGS: There are monitoring devices. The lungs are clear and expanded. There is no demonstrated pleural abnormality. Normal size heart. Normal mediastinum and yasmine. Normal visualized pulmonary arteries. Normal visualized aortic arch and descending thoracic aorta. Normal visualized thoracic spine. Normal visualized ribs, clavicles, and shoulders. There is no demonstrated abnormality of the visualized soft tissue structures of the upper abdomen. RAD/Chest 1 View (Portable) IMPRESSION: Normal x-ray examination of the chest. Electronically Signed: Rajan Tovar MD at 16:48 EDT , Service support ,
--- NOTE | 2020-04-10 16:20 | ED.DCSUM_ITS ---
History of Present Illness Chief Complaint: Chest Pain Informant: Patient Onset: Yesterday Context: Gradual Onset Timing: Waxes and wanes Current Severity: Mild Maximum Severity: Moderate Narrative: Present secondary to palpitations and chest tightness that started last evening. She describes a fullness or pressure at the center of her chest and into her throat. She does describe palpitations but states that she has been diagnosed with PACs and PVCs in the past. She has a mild cough, unchanged when compared to her chronic cough. She reports mild shortness of breath. She is unsure if her symptoms worsen with exertion. She does report having a stress test approximately year and a half ago that was unremarkable. - Past Medical History (1) Hypertension Status: Chronic (2) GERD (gastroesophageal reflux disease) Status: Chronic (3) Fibromyalgia Status: Chronic (4) Anxiety Status: Chronic Past Medical History - Allergies and Home Meds Allergies/Adverse Reactions: Allergies Latex, Natural Rubber Adverse Reaction (Verified 08/27/19 23:28) Unknown pseudoephedrine Adverse Reaction (Verified 08/27/19 23:28) Unknown Primary Care Physician: Jamie Collins MD [Primary Care Provider] - Prior records reviewed: Yes Surgical History: noncontributory Smoking Status: Never smoker Review of Systems General: Denies: Chills, Fever Eyes: Denies: Visual changes - bilaterally ENT: Denies: Bilateral ear pain Cardiovascular: Reports: Chest pain, Palpitations Respiratory: Reports: Dyspnea, Cough Gastrointestinal: Denies: Abdominal pain, Nausea, Vomiting, Diarrhea Musculoskeletal: Denies: Swelling, Extremity Pain Skin: Denies: Rash Neurological: Denies: Headache Hematologic: Denies: Easy bruising, Easy bleeding Allergy: Denies: Uticaria Physical Exam Vital Signs/Narrative: Vital Signs Temp Pulse Resp BP Pulse Ox 04/10/20 16:08 90 14 97 04/10/20 15:57 97.8 F 80 16 129/85 H 98 Inital Vital Signs reviewed: Yes General: Well nourished, Well developed Head: Normocephalic ENT: Moist mucous membranes Neck: Supple Cardiovascular: Regular rate, Regular rhythm Respiratory: No distress, CTA bilaterally, Chest nontender Abdomen: Soft, Nontender Back: Nontender Extremities: Nontender Skin: Normal color Neurological: Alert, Oriented x3, Normal Strength, Normal Sensation Psychological: Normal affect Diagnostic/Tx/Re-eval Impressions Chest X-Ray 04/10/20 16:19 IMPRESSION: Normal x-ray examination of the chest. Electronically Signed: Rajan Tovar MD at 16:48 EDT , Service support , 04/10/20 16:19 Chest 1 View (Portable) [RAD] Stat Laboratory Results 04/10/20 04/10/20 16:05 16:05 WBC 6.1 RBC 4.97 Hgb 15.0 Hct 45.8 MCV 92.2 MCH 30.2 MCHC 32.8 RDW Std Deviation 46.3 H RDW Coeff of Rhona 13.5 Plt Count 227 MPV 10.8 Immature Gran % (Auto) 0.300 Neut % (Auto) 67.5 Lymph % (Auto) 24.6 Cotton % (Auto) 6.4 Eos % (Auto) 0.7 Baso % (Auto) 0.5 Absolute Neuts (auto) 4.1 Absolute Lymphs (auto) 1.49 Nucleated RBC % 0 Sodium 140 Potassium 3.8 Chloride 108 H Carbon Dioxide 29.0 Anion Gap 3 L BUN 16 Creatinine 0.87 Estim Creat Clear Calc 66.93 Est GFR (MDRD) Af Amer 84 Est GFR (MDRD) Non-Af 69 BUN/Creatinine Ratio 18.3 Glucose 96 Calcium 8.5 Troponin I < 0.015 - EKG Initial EKG Interpretation: Sinus Rhythm - Sinus at [address] with PVCs. No acute ST change. - Medical Decision Making Patient was given aspirin along with Pepcid. On repeat evaluation she does feel improved. She was able to pull up her MyChart from [facility] on her phone. Stress test was performed in July 2018. Interpretation is abnormal stress test with change in ST segment in the inferior leads that resolves with rest. It also, however, states that there was no inducible ischemia. In light of the patient's symptoms and history of abnormal ST segments on stress test, I have recommended observation overnight for cycling of enzymes and probable repeat stress test. Patient be discussed with hospitalist. ED Disposition - Plan for ED Patient: Disposition: Acute Care Hospital [facility] Diagnosis: Chest pain Referrals: Jamie Collins MD [Primary Care Provider] -
[2020-04-10] MEDS: Aspirin 81 MG TAB.CHEW 324 MG PO (16:30)
[2020-04-10] MEDS: Famotidine 200 MG/20 ML MDV 20 MG in 0.9% Normal Saline (Pres. free 8 ML 300 MG IV (16:31)
[2020-04-10 16:45] LABS: Absolute Lymphocyte Count 1.49 X10^3/uL (0.83-4.51); Absolute Neutrophil Count 4.1 X10^3/uL (2.0-7.7); Basophil# 0.03 X10^3/uL; Basophil% 0.5 % (0-1); Eosinophil# 0.04 X10^3/uL; Eosinophils% 0.7 % (0-5); Hematocrit 45.8 % (37-47); Lymphocyte # 1.49 X10^3/ul (4.0); Lymphocyte % 24.6 % (19-41); Mean Corp Hgb Conc 32.8 g/dL (32-36); Mean Corpuscular Hgb 30.2 pg (27.0-32.0); Mean Corpuscular Volume 92.2 fL (81-99); Mean Platelet Vol. 10.8 fl (6.2-12.0); Monocyte# 0.39 X10^3/uL; Monocyte% 6.4 % (0-10); NRBC Flagged by Analyzer 0 % (0-5); Neutrophil # 4.08 X10^3/uL (2.7-7.7); Neutrophil % 67.5 % (47-70); Platelet Count 227 K/mm3 (150-450); RBC Distribution Width CV 13.5 % (11.6-14.6); RBC Distribution Width SD 46.3 fl (35.1-43.9); Red Blood Count 4.97 M/mm3 (4.2-5.4); White Blood Count 6.1 K/mm3 (4.4-11.0)
[2020-04-10 16:56] LABS: Anion Gap 3 (5-15); BUN 16 mg/dL (7-18); BUN/Creat Ratio 18.3 RATIO (10-20); Calcium,Total 8.5 mg/dL (8.5-10.1); Chloride 108 mmol/L (98-107); Creatinine, Serum 0.87 mg/dL (0.55-1.02); EST Glomerular Filtration Rate 69 mL/min (>60); Est Glom Filt Rate - Afr Amer 84 mL/min (>60); Estimated Creatinine Clearance 66.93 ml/min; Glucose 96 mg/dL (74-106); Potassium 3.8 mmol/L (3.5-5.1); Sodium Level 140 mmol/L (136-145)
--- NOTE | 2020-04-10 18:27 | HP.PCM_ITS ---
Problem List (1) Chest pain Status: Acute (2) Anxiety Status: Chronic (3) Fibromyalgia Status: Chronic (4) GERD (gastroesophageal reflux disease) Status: Chronic (5) Hypertension Status: Chronic History of Present Illness Date of Admission: 04/10/20 Chief Complaint: Palpitation, chest pain. The patient is a 65 year old F with past medical history as mentioned above presented to the emergency room because of palpitation chest pain. Her symptoms started yesterday evening with palpitation, started at rest, she does have history of chronic palpitations secondary to PACs and PVCs but this time and with palpitation, she started having chest pain described as chest pressure, mild, 5 out of 10 in severity, no throat breathing, continued to have palpitation with, she was dizzy and lightheaded and without significant relieving factors. She denies syncope or presyncope. She mentioned that she had chronic PACs and PVCs in the past but never had similar chest pressure with those symptoms. She had a stress test done on July, at [facility] which was abnormal but she had no cardiac work-up after that. In the emergency department, she was afebrile, other vital signs were stable. Routine blood work was unremarkable. Chest x-ray showed no acute findings. EKG revealed normal sinus rhythm with PACs, no acute acute changes. Troponin was negative. She is being admitted for atypical chest pain for evaluation. Past Medical History Past Medical History (Chronic Problems): Chronic Problems Hypertension (Chronic) GERD (gastroesophageal reflux disease) (Chronic) Fibromyalgia (Chronic) Anxiety (Chronic) Allergies Latex, Natural Rubber Adverse Reaction (Verified 08/27/19 23:28) Unknown pseudoephedrine Adverse Reaction (Verified 08/27/19 23:28) Unknown Home Medications: Ambulatory Orders Medication Instructions Recorded Cyanocobalamin/Folic Acid [Vitamin 1 each PO DAILY 08/27/18 W25-[id number] Acid Tablet] Biotin 1 tab PO DAILY 08/28/19 Lisinopril 1 tab PO DAILY 08/28/19 MSM 1 tab PO DAILY 08/28/19 Magnesium 1 tab PO DAILY 08/28/19 Surgical History: noncontributory 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 Denies: Orthopnea, Syncope Respiratory: Reports: Shortness of Breath. Denies: Cough, Hemoptysis, Pleuritic Pain, Sputum production, Wheezing Gastrointestinal: Denies: Abdominal Pain, Constipation, Diarrhea, Nausea, Vomiting Genitourinary: Denies: Dysuria, Frequency, Hematuria Musculoskeletal: Denies: Arm Pain, Back Pain, Foot Pain Skin: Denies: Dryness, Rash Neurological: Denies: Balance problems, Double vision, Slurred speech, Confusion, Headaches, Incoordination Psychiatric: Reports: Anxiety. Denies: Depression Endocrine: Denies: Change in Body Habitus, Polydipsia, Polyuria VTE Information - Inpt Only VTE Present on Admission: No VTE Mechan Device Prophylaxis: None VTE Pharm Prophylaxis ordered?: Yes Patient Problems: Active and Suspected Problems Chest pain (Acute) - Physical Exam Vitals/I&O's: Vital Signs Temp Pulse Resp BP Pulse Ox 97.3 F L 65 16 132/96 H 98 04/10/20 18:08 04/10/20 18:08 04/10/20 18:08 04/10/20 18:08 04/10/20 18:08 Oxygen Delivery Method Room Air Weight: 143 lb 1.28 oz Body Mass Index (BMI) 28.9 Intake and Output for Last 24 Hours 04/08/20 04/09/20 04/10/20 23:59 23:59 23:59 Intake Total Balance General: Alert, Oriented x3, Cooperative, No apparent distress HEENT: Atraumatic, PERRLA, EOMI, Normocephalic Oral: Moist Mucosa, No Gingival or Mucosal Lesions/ Ulcerations Neck: Supple, No JVD, Negative Carotid Bruits, Trachea Midline, Thyroid Normal Size and Texture Lungs: Clear to auscultation, Normal air movement, No rhonchi, No wheeze, No rales Cardiovascular: Regular rate, Regular Rhythm, Normal S1, Normal S2, PMI Normal, - - Ectopics. Abdomen: Bowel Sounds Present, Soft, Non Tender, Non-Distended, No Hepato- splenomegaly Extremities: No clubbing, No cyanosis, No edema Skin: No rashes, No breakdown Lymphatic: No Cervical, Supraclavicular, or Inguinal Adenopathy Neurological: Cranial nerves II-XII grossly intact, Motor Exam 5/5 strength throughout Psych/Mental Status: Normal Affect, Appropriate, Alert and oriented to time, place, person, mood and affect Laboratory Results 04/10/20 16:05: WBC 6.1, RBC 4.97, Hgb 15.0, Hct 45.8, MCV 92.2, MCH 30.2, MCHC 32.8, RDW Std Deviation 46.3 H, RDW Coeff of Rhona 13.5, Plt Count 227, MPV 10.8, Immature Gran % (Auto) 0.300, Neut % (Auto) 67.5, Lymph % (Auto) 24.6, Emery % (Auto) 6.4, Eos % (Auto) 0.7, Baso % (Auto) 0.5, Absolute Neuts (auto) 4.1, Absolute Lymphs (auto) 1.49, Nucleated RBC % 0 04/10/20 16:05: Sodium 140, Potassium 3.8, Chloride 108 H, Carbon Dioxide 29.0, Anion Gap 3 L, BUN 16, Creatinine 0.87, Estim Creat Clear Calc 66.93, Est GFR (MDRD) Af Amer 84, Est GFR (MDRD) Non-Af 69, BUN/Creatinine Ratio 18.3, Glucose 96, Calcium 8.5, Troponin I < 0.015 Clinical Impression(s) from Imaging Studies Chest X-Ray 04/10/20 16:19 IMPRESSION: Normal x-ray examination of the chest. Electronically Signed: Rajan Tovar MD at 16:48 EDT , Service support , Assessment/Plan All Active Problems Chest pain (Acute) This is a 65 years old female patient presented to the emergency room because of palpitation and chest pain and she is being admitted for evaluation. #1 chest pain/palpitation: Initial EKG revealed sinus rhythm with PACs, no acute segment changes. Troponin was negative chest x-ray showed no acute findings. Patient showed me a stress test that was done on July, at [facility] which was reported as abnormal, patient stated that she had no cardiac work-up since then. Plan: Admit to PCU observation, cardiac monitoring, serial cardiac enzymes, check serum magnesium, TSH, lipid profile, start aspirin, obtain stress test report from [facility] that was done on 2018, nuclear stress test tomorrow morning, 2D echocardiogram. #2 hypertension: Blood pressure stable, continue lisinopril. #3 fibromyalgia: Tylenol as needed. She is not on any medication for it. #3 GERD: Not on PPIs. #5 DVT prophylaxis: Subcu Lovenox. This note was generated with [employer] dictation software. It may contain incorrect words, spelling, and punctuation that were not noted in checking the note before signing. OBSV E&M: 76800 Initial observation care L3
--- NOTE | 2020-04-10 18:48 | ECHOD_ITS ---
Reason For Study: Palpitations Procedure This was a 2D Doppler, Color Flow transthoracic echocardiogram. The study was technically difficult. Exam performed in department. Left Ventricle Normal LV size. Left ventricular systolic function is normal. The estimated ejection fraction is 55 %. No evidence for diastolic dysfunction. No regional wall motion abnormalities noted. Right Ventricle Normal RV size. Normal systolic function. Atria Normal left atrium. Normal right atrium. No doppler evidence for ASD. Mitral Valve There is no mitral annular calcification. Normal mitral valve. Mild (1+) mitral valve insufficiency. Tricuspid Valve Normal tricuspid valve. Trivial tricuspid valve insufficiency. Unable to estimate RV systolic pressure/pulmonary artery pressure due to technically difficult study. Aortic Valve Trisinus/trileaflet aortic valve. Mild diffuse aortic valve thickening. Mild focal aortic valve calcification. Pulmonic Valve The pulmonic valve is not well visualized. Trivial pulmonic valve insufficiency. Great Vessels The aortic root is not well visualized. Pericardium/Pleural No pericardial effusion. MMode/2D Measurements & Calculations LVIDd: 3.5 cm IVSd: 1.2 cm LA dimension: 3.0 cm LVIDs: 2.1 cm LVPWd: 1.1 cm FS: 40.8 % LAV(MOD-sp2): 27.9 ml LVAd ap4: 17.9 cm2 SV(MOD-sp4): 29.0 ml EDV(MOD-sp4): 42.7 ml EDV(sp4-el): 43.2 ml LVAs ap4: 8.4 cm2 ESV(MOD-sp4): 13.7 ml ESV(sp4-el): 12.8 ml EF(MOD-sp4): 67.9 % EF(sp4-el): 70.3 % SV(sp4-el): 30.4 ml Time Measurements MV dec time: 0.22 sec Doppler Measurements & Calculations MV E max balbir: 74.8 cm/sec Lat Peak E' Balbir: 9.4 cm/sec Med Peak E' Balbir: 9.6 cm/sec MV A max balbir: 80.0 cm/sec E/E' lat: 8.0 E/E' med: 7.8 MV E/A: 0.94 MV V2 max: 82.0 cm/sec MV P1/2t max balbir: 82.0 cm/sec Ao V2 max: 89.9 cm/sec MV max P.7 mmHg MV P1/2t: 75.7 msec Ao max P.2 mmHg MV V2 mean: 46.0 cm/sec MV dec slope: 317.3 cm/sec2 MV mean P.0 mmHg MV V2 VTI: 27.0 cm MVA(P1/2t): 2.9 cm2 LV V1 max: 68.6 cm/sec PA V2 max: 108.8 cm/sec LV V1 max P.9 mmHg Interpretation Summary The study was technically difficult. Left ventricular systolic function is normal. The estimated ejection fraction is 55 %. Mild (1+) mitral valve insufficiency. Trivial tricuspid valve insufficiency. Mild diffuse aortic valve thickening. Mild focal aortic valve calcification. Trivial pulmonic valve insufficiency. Unable to estimate RV systolic pressure/pulmonary artery pressure due to technically difficult study. No evidence for diastolic dysfunction. Ordering Physician: Ariana Landers Referring Physician: Jamie Collins M.D. Performed By: Maicol Lugo RCS
--- NOTE | 2020-04-10 19:08 | EKG12_ITS ---
Test Reason : CP Blood Pressure : / mmHG Vent. Rate : 092 BPM Atrial Rate : 080 BPM P-R Int : 158 ms QRS Dur : 070 ms QT Int : 366 ms P-R-T Axes : 083 054 055 degrees QTc Int : 452 ms Sinus rhythm with Premature atrial complexes with Aberrant conduction Possible Left atrial enlargement Septal infarct , age undetermined Abnormal ECG Confirmed by IZABEL GREGG, STEPHANE ([id number]), continuity editor MARGIE DEY ([id number]) on 04/17/2020 8:41:04 A M Referred By: Ariana Landers Confirmed By:TONY PAIZ MD
[2020-04-10 19:58] LABS: Magnesium 2.1 mg/dL (1.6-2.6)
[2020-04-10] MEDS: 0.9% Saline Lock 10 ML Syringe IV (21:48)
[2020-04-10] MEDS: LORazepam 0.5 MG Tablet PO (22:08)
[2020-04-11 03:17] VITALS: PULSE 67
[2020-04-11 04:00] VITALS: BP 120/67; PULSE 62; RESP 18; TEMP 36.4; O2SAT 97
--- NOTE | 2020-04-11 05:00 | EKG12_ITS ---
Test Reason : AM EKG Blood Pressure : / mmHG Vent. Rate : 065 BPM Atrial Rate : 065 BPM P-R Int : 182 ms QRS Dur : 076 ms QT Int : 394 ms P-R-T Axes : 078 058 057 degrees QTc Int : 409 ms Normal sinus rhythm Septal infarct , age undetermined Abnormal ECG When compared with ECG of 10-APR-2020 19:18, MANUAL COMPARISON REQUIRED, DATA IS UNCONFIRMED Confirmed by IZABEL GREGG, STEPHANE ([id number]), medical editor MARGIE DEY ([id number]) on 04/12/2020 11:31:08 AM Referred By: Ariana Landers Confirmed By:TONY PAIZ MD
[2020-04-11] MEDS: Aspirin E.C. 81 MG Tablet PO (06:29)
[2020-04-11 07:34] LABS: Cholesterol 147 mg/dL (200); High Density Lipoprotein 66 mg/dL; Triglycerides 56 mg/dL; Very Low Density Lipoprotein 11 mg/dL (5-40)
[2020-04-11 08:05] VITALS: PULSE 66
--- NOTE | 2020-04-11 10:06 | STRESSREP ---
Stress Test Report Date: 04-11-2020 Procedure: Exercise tolerance test/imaging study Indications: Chest pain; PACs/PVCs Consent: Per the patient Procedure: The patient exercised on a Joe protocol for 6 minutes and 30 seconds completing Stage II and 30 seconds of Stage III achieving a peak heart rate of 126 bpm (80% predicted maximal heart rate) with a peak blood pressure 150/72 mmHg and a peak MET capacity of 7 METs. The baseline ECG demonstrated normal sinus rhythm. The peak exercise ECG demonstrated no obvious ECG changes. There was an occasional PVC during exercise and recovery. The functional capacity was considered average. There was no complaint of chest discomfort during exercise or recovery. The examination was discontinued secondary to fatigue. Impression: 1. Technically inadequate (percent predicted maximal heart rate less than 85%) exercise tolerance test 2. Peak exercise ECG with no obvious ECG changes 3. There was an occasional PVC during exercise and recovery 4. Nuclear images pending Myocardial perfusion imaging study: Technique: The patient was injected with 10.0 mCi of technetium 99m Cardiolite and subsequently rest SPECT Cardiolite nuclear imaging was obtained in the horizontal long, vertical long, and short axis views. The patient exercised on a Joe protocol for 6 minutes and 30 seconds completing Stage II and 30 seconds of Stage III achieving a peak heart rate of 126 bpm (80% predicted maximal heart rate) with a peak blood pressure 150/72 mmHg and a peak MET capacity of 7 METs. The patient was injected with 34.0 mCi of technetium 99m Cardiolite and subsequently stress SPECT Cardiolite nuclear imaging was obtained in the horizontal long, vertical long, and short axis views. A gated Cardiolite study at peak stress was obtained. Interpretation: Rest and stress SPECT Cardiolite nuclear imaging status post realignment, normalization, and attenuation correction, demonstrates the appearance of relative uniform tracer uptake and myocardial perfusion appearing within normal limits. There is end systolic thickening and brightening. The gated Cardiolite study demonstrates myocardial thickening and inward wall motion. The reported LVEF is 90%. Impression: 1. Rest and stress SPECT Cardiolite nuclear imaging demonstrate relative uniform tracer uptake and myocardial perfusion appearing within normal limits at the heart rate achieved. 2. The gated Cardiolite study reports an LVEF of 90%. This note was generated with [employer] software. It may contain incorrect words, spelling, and punctuation that were not noted in checking the note before signing.
--- NOTE | 2020-04-11 10:29 | DCINST_ITS ---
- Discharge Diagnoses Current Active Problems: Current Active and Chronic Problems Hypertension (Chronic) GERD (gastroesophageal reflux disease) (Chronic) Fibromyalgia (Chronic) Anxiety (Chronic) Chest pain (Acute) Reason(s) for Visit for Discharge Instructions: Chest pain You will use the following diet at home:: Cardiac Your food should be the consistency of: Regular Your liquids should be the consistency of: Regular/Thin Discharge Activity: Return to Normal Activity Additional Instructions: Continue to take all your medications as prescribed. You were admitted for chest pain and your EKG, cardiac enzymes and stress test were normal. This means that your chest pain is not likely due to a heart related condition. It could be due to acid reflux or anxiety. Continue to keep yourself hydrated, follow a low-salt, low-fat diet. Follow-up with your primary care doctor within 1 to 2 weeks. See your android software engineer for the chronic palpitations. Allergies/Adverse Reactions: Allergies Latex, Natural Rubber Adverse Reaction (Verified 04/10/20 18:52) Itching pseudoephedrine Adverse Reaction (Verified 04/10/20 18:52) makes me feel crazy Medications to take at Discharge Cyanocobalamin/Folic Acid [Vitamin F48-Bzqtw Acid Tablet] 1 each PO DAILY 08/27/18 Lisinopril 2.5 tab PO DAILY 08/28/19 Ascorbic Acid [Vitamin C] 1,000 mg PO DAILY 04/10/20 Biotin 1,000 mcg PO DAILY 04/10/20 Ferrous Sulfate 325 mg PO DAILY 04/10/20 Lorazepam 0.5 mg PO DAILY PRN 04/10/20 Magnesium Oxide 400 mg PO DAILY 04/10/20 Malic Acid [Dl-Malic Acid] 500 gm MC DAILY 04/10/20 Methylsulfonylmethane [MSM] 1,000 mg PO DAILY 04/10/20 Primary Care Physician: Jamie Collins MD [Primary Care Provider] - Please follow up with your Primary Care Physician in: within 1-2 weeks Test Results: Test results from this visit will be discussed in further detail at your follow- up appointment, if applicable. Proposed Discharge Date: 04/11/20
[2020-04-11 11:19] VITALS: BP 124/74; BP 132/67; BP 138/74; PULSE 62; PULSE 69
[2020-04-11 11:28] VITALS: BP 124/74; PULSE 67; RESP 16; TEMP 36.6; O2SAT 98
[2020-04-11] MEDS: Ferrous Sulfate 325 MG Tablet PO (11:40)
--- NOTE | 2020-04-11 11:52 | PCM.DC.SUM ---
Discharge Date and Diagnosis - Problem List Patient Problems: Active and Suspected Problems Chest pain (Acute) Date of Admission: 04/10/20 Date of Discharge: 04/11/20 - Primary Discharge Diagnosis Acute Problems: Active Problems Chest pain (Acute), ACS ruled out - Secondary Discharge Diagnosis Chronic Problems: Chronic Problems Hypertension (Chronic) GERD (gastroesophageal reflux disease) (Chronic) Fibromyalgia (Chronic) Anxiety (Chronic) Hospital Course and Treatment Imaging Results: 04/11/20 05:55 Nuclear Stress Test - Treadmil [NM] Routine Clinical Impression(s) from Imaging Studies Chest X-Ray 04/10/20 16:19 IMPRESSION: Normal x-ray examination of the chest. Electronically Signed: Rajan Tovar MD at 16:48 EDT , Service support , None Operations: None Procedures: Stress test Summary of Care Provided: The patient is a 65 year old F with past medical history of hypertension, anxiety, fibromyalgia comes in with complaints of chest pain and palpitation. Patient has chronic palpitations. Her admitting EKG showed normal sinus rhythm with PACs. Chest x-ray showed no acute finding. Troponins were trended. She was monitored overnight with no acute event. She underwent a stress test that was negative. He was asked to follow-up with her primary care doctor and also with a primary chief radiation therapist in the outpatient. Patient Problems: Active and Suspected Problems Chest pain (Acute) Subjective: On the day of discharge, patient was seen and examined. Denied any new complaints. No acute events overnight. - Physical Exam Vitals/I&O's: Vital Signs Temp Pulse Resp BP Pulse Ox 97.9 F 67 16 124/74 H 98 04/11/20 11:28 04/11/20 11:28 04/11/20 11:28 04/11/20 11:28 04/11/20 11:28 Oxygen Delivery Method Room Air Weight: 64.2 kg Body Mass Index (BMI) 28.5 Orthostatic Vital Signs Start: 04/11/20 11:17 Freq: q24h Status: Active Protocol: Activity Type Activity Date Activity User E-Sign Co-Sign Detail Recorded Client Recorded Date Recorded By Document 04/11/20 11:19 FS [id number] 04/11/20 11:28 FS 04/11/20 11:19 Orthostatic Vitals Standing -Extremity Use Left Arm Sitting -Blood Pressure (90/60-120/80) 138/74 H -Extremity Use Left Arm -Pulse Rate (60-100) 62 Lying -Blood Pressure (90/60-120/80) 124/74 H -Extremity Use Left Arm -Pulse Rate (60-100) 69 Intake and Output for Last 24 Hours 04/09/20 04/10/20 04/11/20 23:59 23:59 23:59 Intake Total 160 / 160 100 / 100 Balance 160 / 160 100 / 100 General: Alert, Oriented x3, Cooperative, No apparent distress HEENT: Atraumatic, PERRLA, EOMI, Normocephalic Oral: Moist Mucosa Neck: Supple, No JVD, Negative Carotid Bruits Lungs: Clear to auscultation, Normal air movement Cardiovascular: Regular rate, Regular Rhythm, Normal S1, Normal S2, No murmurs Abdomen: Bowel Sounds Present, Soft, Non Tender, Non-Distended, No Hepato-splenomegaly Extremities: No edema Skin: No rashes, No breakdown Musculoskeletal: No Tenderness to Palpation of Joints or Extremities Lymphatic: No Cervical, Supraclavicular, or Inguinal Adenopathy Neurological: Cranial nerves II-XII grossly intact Psych/Mental Status: Normal Affect, Appropriate Laboratory Results 04/10/20 16:05: WBC 6.1, RBC 4.97, Hgb 15.0, Hct 45.8, MCV 92.2, MCH 30.2, MCHC 32.8, RDW Std Deviation 46.3 H, RDW Coeff of Rhona 13.5, Plt Count 227, MPV 10.8, Immature Gran % (Auto) 0.300, Neut % (Auto) 67.5, Lymph % (Auto) 24.6, Pershing % (Auto) 6.4, Eos % (Auto) 0.7, Baso % (Auto) 0.5, Absolute Neuts (auto) 4.1, Absolute Lymphs (auto) 1.49, Nucleated RBC % 0 04/10/20 16:05: Sodium 140, Potassium 3.8, Chloride 108 H, Carbon Dioxide 29.0, Anion Gap 3 L, BUN 16, Creatinine 0.87, Estim Creat Clear Calc 66.93, Est GFR (MDRD) Af Amer 84, Est GFR (MDRD) Non-Af 69, BUN/Creatinine Ratio 18.3, Glucose 96, Calcium 8.5, Troponin I < 0.015 04/10/20 16:05: Magnesium 2.1, TSH 1.40 04/10/20 19:47: Troponin I < 0.015 04/10/20 21:46: Troponin I < 0.015 04/11/20 06:00: Triglycerides 56, Cholesterol 147, LDL Cholesterol 70, VLDL Cholesterol 11, HDL Cholesterol 66 Current Medications Acetaminophen (Tylenol) 650 mg PO Q6H PRN PRN PRN Reason: Pain Score 1-10/Temp > 100.7 F Aspirin (Ecotrin) 81 mg PO DAILY@0800 [facility] Last Admin: 04/11/20 06:29 Dose: 81 mg Documented by: Enoxaparin Sodium (Lovenox) 40 mg SC DAILY [facility] Last Admin: 04/11/20 11:39 Dose: Not Given Documented by: [facility] Admin: 04/11/20 11:40 Dose: 325 mg Documented by: Lisinopril (Zestril) 2.5 mg PO DAILY [facility] Last Admin: 04/11/20 06:31 Dose: Not Given Documented by: Lorazepam (Ativan) 0.5 mg PO DAILY PRN PRN Reason: ANXIETY Last Admin: 04/10/20 22:08 Dose: 0.5 mg Documented by: Nitroglycerin (Nitrostat) 0.4 mg SUBLINGUAL Q5M PRN PRN Reason: CHEST PAIN Ondansetron HCl (Zofran) 4 mg IV Q8H PRN PRN PRN Reason: NAUSEA/VOMITING Senna/Docusate Sodium (Senokot-S, Lorenza-Colace) 2 tablet PO BID PRN PRN PRN Reason: Constipation Sodium Chloride () 10 - 40 ml IV UD PRN PRN Reason: SALINE FLUSH Last Admin: 04/10/20 21:48 Dose: 10 ml Documented by: Zolpidem Tartrate (Ambien (Generic)) 5 mg PO QHS PRN PRN PRN Reason: INSOMNIA Discharge Diet: Low fat/ Low Cholesterol, 2000 mg Sodium Diet Discharge Activity: Return to Normal Activity Home Medications: Medications to take at Discharge Cyanocobalamin/Folic Acid [Vitamin X91-Aajrp Acid Tablet] 1 each PO DAILY 08/27/18 Lisinopril 2.5 tab PO DAILY 08/28/19 Ascorbic Acid [Vitamin C] 1,000 mg PO DAILY 04/10/20 Biotin 1,000 mcg PO DAILY 04/10/20 Ferrous Sulfate 325 mg PO DAILY 04/10/20 Lorazepam 0.5 mg PO DAILY PRN 04/10/20 Magnesium Oxide 400 mg PO DAILY 04/10/20 Malic Acid [Dl-Malic Acid] 500 gm MC DAILY 04/10/20 Methylsulfonylmethane [MSM] 1,000 mg PO DAILY 04/10/20 Primary Care Physician: Jamie Collins MD [Primary Care Provider] - Please follow up with your Primary Care Physician in: within 1-2 weeks Disposition: Home Minutes spent on discharge:: 35 Patient Condition:: Stable Medical Necessity - Tobacco Use Smoking Status: Never smoker Tobacco Use: Non-smoker Meaningful Use Info Meaningful Use Diagnoses (Choose all that apply): None applicable OBSV E&M: 39105 Observation care discharge
== END 2020-04-11 10:28 | disposition home or self-care (01) ==
LOC: ED 17:57 → PCU 18:23
PROVIDERS: Admitting Provider Hospitalist; Emergency Provider Emergency Medicine; PCP Internal Medicine; Referring Provider Hospitalist; Visit Provider Internal Medicine
DX: R07.89 Other chest pain (principal); I10 Essential (primary) hypertension; K21.9 Gastro-esophageal reflux disease without esophagitis; M79.7 Fibromyalgia; F41.9 Anxiety disorder, unspecified; Z23 Encounter for immunization; Z79.899 Other long term (current) drug therapy; I49.3 Ventricular premature depolarization; R06.02 Shortness of breath; R00.2 Palpitations
CPT/HCPCS: 36415; 71045; 78452; 80048; 80061; 83735; 84443; 84484; 85025; 93005; 93017; 93306; 96374; 99218; 99282; A9500; 90686; A4216; G0378; J3490

== ENCOUNTER 2020-11-20 20:13 | Emergency (ER) | payer MEDICAID, SELFPAY ==
[2020-04-10 18:52] VITALS: BMI 28.5
[2020-11-20 20:19] VITALS: BP 133/88; PULSE 69; RESP 20; TEMP 35.8; O2SAT 96; BMI 25.0
--- NOTE | 2020-11-20 20:32 | CT_ITS ---
HISTORY: trauma EXAMINATION: CT Spine Cervical W/O Contrast Injection TECHNIQUE: Helically acquired images were obtained of the cervical spine. 2D reformatted images were reviewed. A radiation dose optimization technique was used for this scan. IV Contrast dosage and agent: None. COMPARISON: None FINDINGS: VERTEBRAE: No fracture or traumatic subluxation. No discrete lytic or blastic abnormality observed. Normal alignment. Normal craniocervical junction and cervicothoracic junction. DISCS and SPINAL CANAL: Disc heights are preserved. No critical stenosis. NECK SOFT TISSUES: No prevertebral soft tissue swelling. There is no cervical adenopathy. LUNG APICES: Clear. CT/Spine Cervical without Contras IMPRESSION: No evidence of acute cervical spinal fracture. Individualized dose optimization techniques were used for this CT. at 2150 Reported and signed by: Blake Chadwick MD Electronically Signed: Blake Chadwick MD at 21:49 EDT Tel , Service support ,
--- NOTE | 2020-11-20 20:32 | CT_ITS ---
We are attempting to reach an attending provider to discuss findings. An addendum with communication details will be sent when the communication is complete. HISTORY: trauma TECHNIQUE: Multiple axial images were obtained of the brain without intravenous contrast. A radiation dose optimization technique was used for this scan. IV Contrast dosage and agent: None. COMPARISON: None FINDINGS: # of images incl. paperwork: 230 PARANASAL SINUSES AND MASTOID AIR CELLS: Clear. INTRACRANIAL HEMORRHAGE: Biconcave acute extradural hemorrhage at the high right parietal convexity, 2.1 cm maximal thickness with mass effect on the adjacent cerebral hemisphere producing 10 mm midline shift right to left. Small amount of acute subarachnoid hemorrhage anteriorly with trace subdural hemorrhage about the right frontal curvature, 3 mm maximum thickness. BRAIN PARENCHYMA: No CT evidence of stroke. No intracranial masses. There is preservation of the galvan/white matter interface. Posterior fossa structures are unremarkable. CSF SPACES: Appropriate for age. There is no hydrocephalus. CALVARIUM: No skull fracture. Right parietal cephalhematoma. CT/Brain/Head without Contrast IMPRESSION: Right posterior parietal epidural hematoma producing 10 mm leftward midline shift. Small right frontal subdural hematoma with associated trace subarachnoid hemorrhage anteriorly. Individualized dose optimization techniques were used for this CT. at 2146 Reported and signed by: Blake Chadwick MD Electronically Signed: Blake Chadwick MD at 21:45 EDT Tel , Service support ,
--- NOTE | 2020-11-20 20:33 | EKG12_ITS ---
Test Reason : INTOXICATION Blood Pressure : / mmHG Vent. Rate : 079 BPM Atrial Rate : 079 BPM P-R Int : 194 ms QRS Dur : 080 ms QT Int : 380 ms P-R-T Axes : 079 069 041 degrees QTc Int : 435 ms Normal sinus rhythm Septal infarct , age undetermined Abnormal ECG Confirmed by MILDRED GREGG, CARISSA ([id number]), features editor MARGIE DEY ([id number]) on 11/22/2020 9:43:16 AM Referred By: BARBARA Confirmed By:CARISSA LEVY MD
--- NOTE | 2020-11-20 20:34 | EDS_ITS ---
HPI History of Present Illness Chief Complaint: ETOH Intox Narrative Narrative: Patient presents via ambulance. She apparently had quite a bit of alcohol to drink and fell and hit the back of her head. She is now vomiting. She can give me very little in terms of the history, I am getting most of the history from EMS report and from a friend who was then her with her. There seems to be no other injury. PFSH PFSH Home Medications vitamin [id number] acid 1 ea PO DAILY 08/27/18 [History Last Taken 04/09/20] lisinopril 2.5 tab PO DAILY 08/28/19 [History Last Taken 04/08/20] ascorbic acid (vitamin C) 1,000 mg PO DAILY 04/10/20 [History Last Taken 04/09/20] biotin 1,000 mcg PO DAILY 04/10/20 [History Last Taken 04/09/20] ferrous sulfate 325 mg PO DAILY 04/10/20 [History Last Taken 04/09/20] lorazepam 0.5 mg PO DAILY PRN 04/10/20 [History Last Taken Unknown] magnesium oxide 400 mg PO DAILY 04/10/20 [History Last Taken 04/09/20] malic acid (bulk) 500 gm MC DAILY 04/10/20 [History Last Taken 04/09/20] methylsulfonylmethane 1,000 mg PO DAILY 04/10/20 [History Last Taken 04/09/20] Allergy/AdvReac Type Severity Reaction Status Date / Time Latex, Natural Rubber AdvReac Itching Verified 04/10/20 18:52 pseudoephedrine AdvReac makes me Verified 04/10/20 18:52 feel crazy Social History Smoking Status: Never smoker ROS ROS ED ROS Narrative Past medical history: Reviewed Medications: Reviewed Social history: Noncontributory Review of systems: All systems negative except as indicated Unable secondary to patient's mental status EXAM Physical Exam Narrative Exam Narrative: Physical exam Vitals reviewed General: Patient is slurring her speech. She only speaks in a few word sentences and tells me she is very sick but does not want to talk to me any further. HEENT: No signs facial injury. I do smell fermentation on her breath Head: There is no laceration or obvious contusion in the posterior occiput. Eyes: Extraocular movements intact. Pupils are 2 mm equal and reactive Neck: No C-spine tenderness with full range of motion Heart: Regular rate normal pulses Chest wall: No chest wall pain Lungs clear lungs bilaterally with normal inspiration and expiration without tachypnea GI: Abdomen is soft and nontender there is no mass no guarding no abdominal wall contusion : Stable pelvis Musculoskeletal: Moves all extremities without any signs of trauma Skin: No abrasions or laceration Neurological: Patient has no focal deficits, however she is slurring her speech. She has difficulty following commands. Const Vital Signs: 11/20/20 20:19 Temperature 96.5 F L Temperature Source Temporal Pulse Rate 69 Respiratory Rate 20 H Blood Pressure 133/88 H Blood Pressure Mean 103 Pulse Ox 96 Oxygen Delivery Method Room Air MDM MDM MDM Narrative Medical decision making narrative: Patient was taken to CT right away. I was called by the broadcast maintenance technician to look at the CT since they saw an intracranial bleed. This appeared to me like an epidural hematoma. When she returned from CT she was more obtunded with a GCS of 7. The decision was made to intubate her. I called [facility] who accepted the patient. I talked to Dr. Nice. Patient will be life flighted. Lab Data Labs: Laboratory Results - last 24 hr 11/20/20 20:50 Ethyl Alcohol 270.0 Procedures Other Procedures Procedure(s): Procedure #1 Endotracheal intubation Indication airway protection Emergent procedure thus no consent was obtained Patient was oxygenated prior 20 mg of etomidate and 100 mg of rocuronium were given. 4-0 MAC blade was used A 7.5 endotracheal tube was placed. This was confirmed with direct visualization, color change and bilateral breath sounds and chest rise afterwards. Procedure #2 Orogastric tube insertion 4-0 MAC blade was used. The OG tube was inserted without any complications. This was an emergency procedure Critical Care Time Critical Care Time: Yes Critical care time (excluding procedures): 30-74 minutes and - (Critical care time 33 minutes: includes time obtaining history from friend and paramedics, time at the bedside and documentation as well as arranging transfer and discussing with consultants. It does not include any of my procedures.) Discharge Plan Triage Chief Complaint: ETOH Intox ED Provider: Jama Campo Dx/Rx/DC Orders Clinical Impression: Epidural hematoma Prescriptions: No Action vitamin [id number] acid 1 EACH tablet 1 ea PO DAILY RF: 0 lisinopril 2.5 MG tablet 2.5 tab PO DAILY RF: 0 methylsulfonylmethane 1,000 MG capsule 1,000 mg PO DAILY RF: 0 ascorbic acid (vitamin C) 1,000 MG tablet 1,000 mg PO DAILY RF: 0 magnesium oxide 400 MG tablet 400 mg PO DAILY RF: 0 ferrous sulfate 325 MG tablet 325 mg PO DAILY RF: 0 malic acid (bulk) 500 GM powder 500 gm MC DAILY RF: 0 biotin 1,000 MCG tablet,chewable 1,000 mcg PO DAILY RF: 0 lorazepam 0.5 MG tablet 0.5 mg PO DAILY PRN (Reason: Anxiety) RF: 0 Primary Care Provider: Jamie Collins Referrals: Jamie Collins MD [Primary Care Provider] - Disposition Disposition: Acute Care Hospital
[2020-11-20] MEDS: Ondansetron 4 MG/2 ML Vial IV (20:54)
--- NOTE | 2020-11-20 21:08 | RAD_ITS ---
HISTORY: weakness EXAMINATION/TECHNIQUE: XR Chest 1 View: Portable semiupright AP chest x-ray COMPARISON: 04/10/20 FINDINGS: LINES/DEVICES: None. LUNGS: Hazy bilateral airspace opacities with overall low lung volumes. No consolidation or pleural effusion. MEDIASTINUM AND CARDIOVASCULAR STRUCTURES: Cardiac silhouette not enlarged. Central airways and mediastinal contour are unremarkable. BONES AND SOFT TISSUES: No acute bony abnormalities. RAD/Chest 1 View (Portable) IMPRESSION: Hypoinflated study with bibasilar airspace infiltrates and pneumonia versus atelectasis. Follow-up recommended. at 2205 Reported and signed by: Blake Chadwick MD Electronically Signed: Blake Chadwick MD at 22:03 EDT Tel , Service support ,
[2020-11-20 21:09] LABS: Absolute Lymphocyte Count 3.52 X10^3/uL (0.83-4.51); Basophil# 0.03 X10^3/uL; Basophil% 0.4 % (0-1); Eosinophil# 0.03 X10^3/uL; Eosinophils% 0.4 % (0-5); Hematocrit 41.4 % (37-47); Hemoglobin 13.9 g/dL (12.0-15.0); Lymphocyte # 3.52 X10^3/ul (0.83-4.51); Lymphocyte % 43.6 % (19-41); Mean Corp Hgb Conc 33.6 g/dL (32-36); Mean Corpuscular Hgb 30.3 pg (27.0-32.0); Mean Corpuscular Volume 90.4 fL (81-99); Mean Platelet Vol. 10.1 fl (6.2-12.0); Monocyte# 0.45 X10^3/uL; Monocyte% 5.6 % (0-10); NRBC Flagged by Analyzer 0 % (0-5); Neutrophil # 4.02 X10^3/uL (2.7-7.7); Neutrophil % 49.6 % (47-70); Platelet Count 223 K/mm3 (150-450); RBC Distribution Width CV 13.2 % (11.6-14.6); RBC Distribution Width SD 43.6 fl (35.1-43.9); Red Blood Count 4.58 M/mm3 (4.2-5.4); White Blood Count 8.1 K/mm3 (4.4-11.0)
[2020-11-20 21:13] VITALS: BP 144/85; PULSE 80; RESP 18; O2SAT 95
--- NOTE | 2020-11-20 21:17 | ED.RN ---
[facility] called for transfer
[2020-11-20] MEDS: Rocuronium Bromide 50 MG/5 ML Vial 100 MG IV (21:19)
[2020-11-20] MEDS: Etomidate 20 MG/10 ML Vial IV (21:19)
[2020-11-20 21:21] VITALS: PULSE 84; RESP 18; O2SAT 100
[2020-11-20 21:25] LABS: ALB/GLOB Ratio 1.2 RATIO (0.9-2.4); AST(SGOT) 39 U/L (15-37); Alanine Aminotransfer ALT/SGPT 35 U/L (13-56); Albumin, Serum 3.7 g/dL (3.2-5.0); Alkaline Phosphatase 55 U/L (45-117); Anion Gap 9 (5-15); BUN 17 mg/dL (7-18); BUN/Creat Ratio 19.7 RATIO (10-20); Calcium,Total 8.3 mg/dL (8.5-10.1); Chloride 109 mmol/L (98-107); Creatinine, Serum 0.86 mg/dL (0.55-1.02); EST Glomerular Filtration Rate 70 mL/min (>60); Est Glom Filt Rate - Afr Amer 85 mL/min (>60); Estimated Creatinine Clearance 61.87 ml/min; Glucose 120 mg/dL (74-106); Lipase 186 U/L (73-393); Potassium 3.8 mmol/L (3.5-5.1); Protein, Total 6.7 g/dL (6.4-8.2); Sodium Level 142 mmol/L (136-145)
[2020-11-20] MEDS: Propofol 10MG/Ml 1,000 MG/100 ML Bottle 4.2 MG CONT INF (21:29)
[2020-11-20 22:00] VITALS: BP 149/85; PULSE 73; RESP 18; O2SAT 100
[2020-11-20 22:04] LABS: Prothrombin Time (Protime)PT. 12.4 SECONDS (11.7-14.9)
[2020-11-20 22:05] LABS: Partial Thromboplast Time 24.5 Seconds (24.1-36.2)
== END 2020-11-20 22:17 | disposition short-term general hospital (02) ==
PROVIDERS: Emergency Medicine; Emergency Provider Emergency Medicine; PCP Internal Medicine
DX: S06.4X9A Epidural hemorrhage with loss of consciousness of unspecified duration, initial encounter (principal); W19.XXXA Unspecified fall, initial encounter; Y93.89 Activity, other specified; Y92.9 Unspecified place or not applicable; Y99.9 Unspecified external cause status; F10.129 Alcohol abuse with intoxication, unspecified
CPT/HCPCS: 31500; 51702; 70450; 71045; 72125; 80053; 82077; 83690; 85025; 85610; 85730; 93005; 94002; 96361; 96374; 99251; 99285; J7030; J7040; A4216; G0463; J2405

== ENCOUNTER 2021-01-03 14:20 | Inpatient (IN) | payer MEDICAID, SELFPAY ==
[2021-01-03 14:29] VITALS: BP 107/62; PULSE 84; RESP 18; TEMP 36.7; O2SAT 99; BMI 29.0
--- NOTE | 2021-01-03 16:00 | PCM.HP.STD ---
HPI - General General Date of Admission: 01/03/21 Date of Service: 01/03/21 Chief Complaint: Debility due to TBI HPI Narrative MARGIE RAMOS, is a 65 F with a past medical history of fibromyalgia, anxiety/depression, heavy alcohol use, chronic benzodiazepine use for insomnia, and HTN who had been drinking at the [employer] and then fell down a flight of stairs losing consciousness for 2-3 minutes. She was found by a friend who she had been drinking with and she was taken to [facility] ED where a CT brain showed an epidural hematoma with a 1 cm shift. The blood alcohol was 270. She was transferred to [facility] from [facility] and taken immediately to the OR for evacuation of the hematoma and placement of an intracranial pressure monitor. The bolt was removed on 12/02/2020. Imaging also showed intraparenchymal hemorrhage of the R frontal and temporal lobes. She was transferred to [facility] after having a PEG and trach. She was transferred to [facility] acute inpt rehab on 01/03/21 for > 3 H of therapy daily to restore her at or near her prior level of functioning. All documentation from [facility] was reviewed. I interviewed the pt with her son Will in the room. He revealed that his mothers boyfriend is an alcoholic and she tried to minimize his drinking stating that he has been trying to drink less for his new granddaughter. She also admitted to using Lorazepam for when she can not sleep. I reviewed the OARRS and she gets #30 every 5 months or so over the past 2 years. She got very disturbed when she thought I was going to take her Lorazepam away. She tells me that she needs to know it is there. [facility] Medical History (Updated 01/04/21 @ 15:[address] Dena Wall DO) Alcohol abuse Anxiety and depression Chronic use of benzodiazepine for therapeutic purpose Family history of bipolar disorder Fibromyalgia GERD (gastroesophageal reflux disease) Heavy alcohol use Intraparenchymal hemorrhage of brain Skull fracture with cerebral contusion TMJ arthralgia Tobacco dependence in remission Home Medications vitamin [id number] acid 1 ea PO DAILY 08/27/18 [History Last Taken 04/09/20] lisinopril 2.5 tab PO DAILY 08/28/19 [History Last Taken 04/08/20] ascorbic acid (vitamin C) 1,000 mg PO DAILY 04/10/20 [History Last Taken 04/09/20] biotin 1,000 mcg PO DAILY 04/10/20 [History Last Taken 04/09/20] ferrous sulfate 325 mg PO DAILY 04/10/20 [History Last Taken 04/09/20] lorazepam 0.5 mg PO DAILY PRN 04/10/20 [History Last Taken Unknown] magnesium oxide 400 mg PO DAILY 04/10/20 [History Last Taken 04/09/20] malic acid (bulk) 500 gm MC DAILY 04/10/20 [History Last Taken 04/09/20] methylsulfonylmethane 1,000 mg PO DAILY 04/10/20 [History Last Taken 04/09/20] Allergy/AdvReac Type Severity Reaction Status Date / Time Latex, Natural Rubber AdvReac Itching Verified 04/10/20 18:52 pseudoephedrine AdvReac makes me Verified 04/10/20 18:52 feel crazy Family History (Updated 01/03/21 @ 19:[address] Dena Wall DO) Mother SAH (subarachnoid hemorrhage) Father CAD (coronary artery disease) first WI at 55 YOA and at 71 of CVD Brother Alcoholism Bipolar disorder (manic depression) Surgical History (Updated 01/04/21 @ 16:[address] Dena Wall DO) History of craniotomy History of right oophorectomy S/P percutaneous endoscopic gastrostomy (PEG) tube placement Social History (Updated 01/03/21 @ 19:[address] 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 substance use type: marijuana additional social history: has a significant other who is an alcoholic. she has been seen at the [facility] in the past by Yris Bird. She was on an antidepressant in the 80's but can not recall the name. Takes Lorazepam when she can not sleep. ROS Review of Systems ROS Unobtainable: Denies due to encephalopathy, due to endotracheal tube, due to mental condition or due to mental status Constitutional Constitutional: Denies anorexia, change in weight, chills, fatigue, fever(s), night sweats or weakness Eyes Eyes: Denies blurry vision, change in vision, eye pain or loss of vision ENT HEENT: Reports dry mouth and other Details: pain in the R face only when she yawns....it feels like her TMJ pain. She grinds her teeth at night. She has numbness of the R side of her skull. ; Denies abnormal hearing, dysphagia, headache(s), hearing loss, nasal congestion or sore throat Cardiovascular Cardiovascular: Denies chest pain, dyspnea on exertion, edema, lightheadedness, orthopnea, palpitations, paroxysmal nocturnal dyspnea or syncope Respiratory/Chest Respiratory/Chest: Reports other Details: occasional dry cough ; Denies dyspnea, shortness of breath at rest, shortness of breath with exertion or wheezing Gastrointestinal Gastrointestinal: Reports constipation and nausea; Denies abdominal pain, diarrhea, dyspepsia, hematemesis, hematochezia or vomiting Genitourinary Genitourinary: Denies dysuria, hematuria, nocturia, urinary frequency, urinary hesitancy, urinary incontinence or urinary urgency Musculoskeletal Musculoskeletal: Denies back pain, joint pain, joint swelling or neck pain Integumentary Integumentary: Reports other Details: craniotomy scar - healing Neurologic Neurologic: Reports focal weakness and paresthesias; Denies confusion, disequilibrium, dizziness, headache(s), seizures or tremor(s) Psychiatric Psychiatric: Reports anxiety and depression; Denies homicidal ideation, suicidal ideation or visual hallucinations Endocrine Endocrinology: Denies change in body appearance, polydipsia or polyuria Hematologic/Lymphatic Hematologic/Lymphatic: Denies easy bleeding, easy bruising or lymphadenopathy Allergic/Immunologic Allergic/Immunologic: Denies rhinitis, eczemia or asthma Vital Signs Vital Signs Vital Signs: 01/03/21 14:29 Temperature 98.0 F Temperature Source Oral Pulse Rate 84 Respiratory Rate 18 Blood Pressure 107/62 Blood Pressure Mean 77 Blood Pressure Source Monitor Blood Pressure Position Semi-Fowlers Blood Pressure Location Left Arm Pulse Ox 99 Oxygen Delivery Method Room Air Weight Weight: 134 lb 11.239 oz Body Mass Index (BMI) 29.0 Physical Exam Const alert and oriented x3 Constitutional Narrative: She is anxious, has mildly pressured speech and she is constantly fidgeting with the bed covers. Has some trouble staying on topic and has tangential thinking. I would say that she has flight of ideas. General Appearance: well developed and anxious HEENT hearing grossly normal bilaterally HEENT Narrative: She has pain with palpation of the R TMJ and she gets pain when she yawns. Has had TMJ in the past and she grinds her teeth and chews ice. Dry MM. Head and Scalp: other Other Details: She has a craniotomy incision and the R side of the head is shaved. Face and Sinus: face symmetric Mouth: dry mucous membranes Eyes PERRL and EOMs intact bilaterally Eyes Narrative: no visual field cuts Neck supple, no JVD and No nodes Neck Narrative: the trach site is healing and there is only a very small opening now Resp normal respiratory effort, normal air movement, no use of accessory muscles and clear to auscultation bilaterally Effort and Inspection: able to speak in complete sentences and symmetric chest movement Cardio regular rate, regular rhythm, S1 normal heart sound, S2 normal heart sound, no murmurs, no rub and no gallops GI normal to inspection, nondistended, normoactive bowel sounds and soft to palpation GI Narrative: The PEG site looks as thought it has not been cleaned in several days. There is dried DC and it is wet under the dressing and there is some yellow tinged mucous. She has a small ulceration at about 5 o'clock. It is about 80% slough. There is no erythema around the ulcer. Extremity no calf tenderness and no pedal edema Peripheral Pulses: Yes pulses 2+ throughout Skin Skin Narrative: The scalp incision is intact and there is no katelynn-incisional erythema and no DC. Neuro oriented x3, CN's II-XII intact bilaterally and moves all extremities Neuro Narrative: She has decreased sensation on the R side of the head. Generalized weakness in all extremities. Psych denies hallucinations and denies suicidal ideation Psych Narrative: She has flight of ideas and pressured speech. She is very fidgety and somewhat histrionic. She is very worried about not getting Lorazepam and is perseverating on this. I am suspicious she may be bipolar....her brother is bipolar. I think she may drink to excess to control anxiety. Activity / Motor Behavior: psychomotor agitation and restless Speech: pressured Results Lab / Micro Data Result Diagrams: 01/04/21 05:05 01/04/21 05:05 Assessment & Plan Assessment/Plan (1) Debility: PLAN: PT/OT/ST consults (2) History of recent fall: PLAN: She fell down a flight of stairs while intoxicated and sustained a skull fracture/epidural hematoma and intraparenchymal cerebral hemorrhage requiring craniotomy. (3) Skull fracture with cerebral contusion: (4) Epidural hematoma: PLAN: Status post craniotomy. (5) Intraparenchymal hemorrhage of brain: (6) History of craniotomy: (7) Oropharyngeal dysphagia: PLAN: She has a PEG tube. will have ST evaluate swallowing and see if she can be started on a diet. (8) S/P percutaneous endoscopic gastrostomy (PEG) tube placement: (9) History of tracheostomy: PLAN: This has been removed. (10) Encephalopathy: PLAN: She has flight of ideas and pressured speech and she is restless and fidgety and perseverates......can not tell if this is due to TBI or if she could possibly have BPD since there is a FH? Possibly she drinks to control her anxiety/agitation? I am fearful if she stops drinking she will then start Abusing Ativan to control her sx. I think she should be evaluated by a psychiatrist at some point and I also think she needs to go back to counselling. (11) TMJ arthralgia: PLAN: ICE to the area and use a arthritic cream to control pain rather than something systemic. (12) Acute blood loss anemia: PLAN: monitor the HH to make sure it is improving and not dropping (13) Hypertension: PLAN: controlled (14) Fibromyalgia: (15) GERD (gastroesophageal reflux disease): (16) Anxiety and depression: PLAN: not currently on any medication. (17) Family history of bipolar disorder: PLAN: her brother has BPD and he is a alcoholic (18) Tobacco dependence in remission: (19) Chronic use of benzodiazepine for therapeutic purpose: PLAN: she uses this for insomnia and after review of the OARRS report it looks as though she gets #30 every 5 months or so from Dr. Collins or one of the SOLID WASTE TECHNICIAN/PA's at [facility]. (20) Alcohol abuse: PLAN: I recommend she go to counselling and [facility] may be a good option for her. she could als0o attend AA or go back to the [employer] she has seen in the past at the [facility]. Charges/Coding Visit Charges Inpatient E&M: [id number] Disch Hosp
[2021-01-03 16:40] VITALS: O2SAT 99
[2021-01-03] MEDS: Pivot 1.5 Cal 1,000 ML BOTTLE 200 ML GT ×2 (18:10→23:34)
[2021-01-03 19:44] VITALS: BP 103/62; PULSE 84; RESP 18; TEMP 36.8; O2SAT 97
--- NOTE | 2021-01-03 19:50 | REHABEVAL_ITS ---
Admission Information Primary Diagnosis:: Debility due to TBI Status Changes from Prescreening?: No changes Identified Actual Problem List:: Falls, Skin Intergrity, Pain, ALteration in Cmfrt, Cognitve Impr/Memory Loss, Bowel, Constipation, Alteration in Sleep, Mobility Impaired, Self Care Deficit, Know.Dfct/Disease Process, Know.Dfct of Medicaitons, BP, Hypertension, Alteration/ Air Exchange and Alteration-Leisure Activ. Potential Problem List:: DVT, Bleeding, Infection, UTI, Aspiration, Falls, Skin Integrity and Depression Risk of Complications DVT: MARY Hose and - (Heparin 5000 units subcu every 8 hours) Bleeding: Monitor Lab Values, Nursing to Teach Precautions for anti-coagulation therapy., Wound, if applicable, to be assessed every shift. and Stroke patients assessed for lethargy or change in status. Infection: Clinical Staff to Monitor for S/S of infection: and S/S of infection include fever, redness, warmth, etc. Urinary Tract Infection: Monitor for frequency, burning, discomfort, or incontinence. and Nursing will obtain urine sample for urinalysis and C&S when ordered. Aspiration: Clinical staff will monitor for coughing, drooling, congestion., Speech will evaluate swallowing and dsyphasia. and Nursing will monitor patient swallowing during meals. Falls: Patient will be evaluated for Fall Precautions and Patient will be placed on Fall Precautions as indicated per protocol. Skin Breakdown: Nursing will assess skin daily using assessment tool. and Nursin g will place on Skin Breakdown Precautions as indicated. Pain: Clinical staff will assess patient's pain level per protocol., Medications will be given, if needed, and the pain level reassessed. and Other methods: Massage, distraction, decrease stimulus, etc. used PRN. Plan of Care Patient requires physician specializing in physical medicine and rehab oversight to provide close medical supervision of rehab issues including: Pain Management, Sleep Problems, Bowel and Bladder, Medical and co-morbidity Management, DVT prophylaxis, Rehabilitation Leadership and Coordination of treatment team Patient needs Physical Therapy: For a minimum of 1 hour and At least 5 out of 7 days Patient needs Physical Therapy to improve:: Mobility, Strengthening, Transfers, Stretching, ROM, Endurance, Stairs, Gait and Balance Patient needs Occupational Therapy: For a minimum of 1 hour and At least 5 out of 7 days Patient needs Occupational Therapy to improve ADL's incl.: Eating, Grooming, Bathing, Dressing, Toileting, Toilet transfers, Community Reintegration, Higher functioning activities, Household tasks, Adaptive Equipment, Splinting and Other activities as determined Patient requires speech therapy: For a minimum of 1 hour and At least 5 out of 7 days Patient requires speech therapy for: Swallowing, Cognition, Language Skills and Compensatory Strategies Patient requires 24/7 Rehabilitation Nursing for: Pain Issues, Identifying and preventing risk factors, Monitoring and reporting current medical conditions, Assisting with ambulation, transfer, and all ADL's, Teaching patients about disease process and medications, Family teaching, Providing safe environment, Bowel and Bladder Issues, Skin integrity and Medication Management Patient needs Fur Cutter/ Case Management for: Discharge Planning, Arranging Home Equipment or Services and Family Interventions Patient needs Dietary and Nutrition Services for: Adequate Nutrition, Nutritional Supplements and Nutritional Education Goals Patient will remain: free from falls and or injury at time of discharge. Patient will perform bed mobility at: MOD I level of assist. Patient will complete transfers from bed to chair at: MOD I level of assist. Patient will ambulate: 100 feet and with LRD Patient will complete upper body dressing at: MOD I level of assist. Patient will complete lower body dressing at: MOD I level of assist. Patient will complete toileting at: MOD I level of assist. Patient will perform bathing at: MOD I level of assist. Patient will complete grooming at: MOD I level of assist. Patient will complete home management skills at: MOD I level of assist. Patient will achieve: - (1 curb step) Patient will have pain level of: of 3 or less Patient's skin will: remain intact Patient will receive: adequate nutrition. Discharge Planning Pt Prognosis for Sig. Practical Improv. w/in Reasonable Time: Good Estimated Length of stay (days): 14 Anticipated D/C Destination: Home Was Preadmission Assessment Accurate?: Yes
[2021-01-03] MEDS: Acetaminophen 650 MG/20 ML UDC GT (19:54)
[2021-01-03 19:59] VITALS: PULSE 83; RESP 17; O2SAT 95
[2021-01-03] MEDS: MELATONIN 3 MG TABLET 6 MG GT (20:13)
[2021-01-03] MEDS: Heparin Injection (Vial) 5,000 UNIT/ML VIAL 5000 UNIT SC (20:14)
[2021-01-03] MEDS: Chlorhexidine 480 ML 15 ML PO (20:15)
[2021-01-03] MEDS: Senna/Docusate Sodium 1 Tablet 2 TABLET PO (20:16)
[2021-01-04 05:23] LABS: Absolute Lymphocyte Count 1.03 X10^3/uL (0.83-4.51); Absolute Neutrophil Count 1.3 X10^3/uL (2.0-7.7); Basophil# 0.01 X10^3/uL; Basophil% 0.4 % (0-1); Eosinophil# 0.04 X10^3/uL; Eosinophils% 1.5 % (0-5); Hematocrit 38.8 % (37-47); Hemoglobin 12.9 g/dL (12.0-15.0); Lymphocyte # 1.03 X10^3/ul (0.83-4.51); Lymphocyte % 37.9 % (19-41); Mean Corp Hgb Conc 33.2 g/dL (32-36); Mean Corpuscular Hgb 29.8 pg (27.0-32.0); Mean Corpuscular Volume 89.6 fL (81-99); Mean Platelet Vol. 10.6 fl (6.2-12.0); NRBC Flagged by Analyzer 0 % (0-5); Neutrophil # 1.33 X10^3/uL (2.7-7.7); Neutrophil % 48.8 % (47-70); Platelet Count 189 K/mm3 (150-450); RBC Distribution Width CV 13.2 % (11.6-14.6); RBC Distribution Width SD 43.6 fl (35.1-43.9); Red Blood Count 4.33 M/mm3 (4.2-5.4); White Blood Count 2.7 K/mm3 (4.4-11.0)
[2021-01-04 05:42] LABS: ALB/GLOB Ratio 0.9 RATIO (0.9-2.4); AST(SGOT) 26 U/L (15-37); Alanine Aminotransfer ALT/SGPT 52 U/L (13-56); Albumin, Serum 2.8 g/dL (3.2-5.0); Alkaline Phosphatase 74 U/L (45-117); Anion Gap 6 (5-15); BUN 22 mg/dL (7-18); BUN/Creat Ratio 41.6 RATIO (10-20); Calcium,Total 8.2 mg/dL (8.5-10.1); Chloride 103 mmol/L (98-107); Creatinine, Serum 0.53 mg/dL (0.55-1.02); EST Glomerular Filtration Rate 123 mL/min (>60); Est Glom Filt Rate - Afr Amer 149 mL/min (>60); Estimated Creatinine Clearance 103.43 ml/min; Globulin 3.2 g/dL (2.2-4.2); Glucose 100 mg/dL (74-106); Magnesium 2.3 mg/dL (1.6-2.6); Phosphorus 3.7 mg/dL (2.5-4.9); Potassium 4.1 mmol/L (3.5-5.1); Sodium Level 137 mmol/L (136-145)
[2021-01-04] MEDS: Heparin Injection (Vial) 5,000 UNIT/ML VIAL 5000 UNIT SC ×3 (05:54→22:12)
[2021-01-04] MEDS: Pivot 1.5 Cal 1,000 ML BOTTLE 200 ML GT (05:55)
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
[2021-01-04 08:53] VITALS: BMI 27.1
[2021-01-04 08:56] VITALS: BP 104/69; BP 105/57; BP 106/67; PULSE 76; PULSE 79; PULSE 87
[2021-01-04 09:00] VITALS: BP 116/67; PULSE 72; RESP 16; TEMP 36.6; O2SAT 99
[2021-01-04] MEDS: Multivitamins,Ther W-Minerals Tablet 1 TABLET GT (10:36)
[2021-01-04] MEDS: NYSTATIN 500,000 UNIT/5 ML UDC 500000 UNIT PO ×4 (10:36→22:12)
[2021-01-04] MEDS: Senna/Docusate Sodium 1 Tablet 2 TABLET PO ×2 (10:36→22:10)
[2021-01-04] MEDS: Thiamine Hydrochloride 100 MG Tablet GT (10:36)
[2021-01-04] MEDS: Chlorhexidine 480 ML 15 ML PO ×2 (10:37→22:11)
[2021-01-04] MEDS: Pivot 1.5 Cal 1,000 ML BOTTLE 250 ML GT ×2 (10:39→22:13)
--- NOTE | 2021-01-04 16:17 | NURSING ---
ronaldo dressing removed from around PEG site at this time. Area was noted to be reddened and moist with old and new drainage present. small 1 cm x1 cm ulcerated area noted under dressing by physician prior to removal. area cleansed with sterile water dried with a DSD. split gauze applied under the button of PEG tube at this time. will continue to cleanse and change dressing each shift and PRN if soiled. pt tolerated procedure well. had no verbal complaints of pain or discomfort with removal. pt states that the area felt better once old dressing was removed and the area was cleansed. pt's call light within reach and PA attached. pt denies further needs at this time. will continue to monitor area for signs and symptoms of infection.
[2021-01-04 20:04] VITALS: BP 106/60; PULSE 85; RESP 16; TEMP 36.7; O2SAT 99
[2021-01-04 22:00] VITALS: PULSE 85; RESP 16; O2SAT 94
[2021-01-04] MEDS: MELATONIN 3 MG TABLET 6 MG GT (22:12)
[2021-01-05] MEDS: Heparin Injection (Vial) 5,000 UNIT/ML VIAL 5000 UNIT SC ×3 (05:58→21:56)
[2021-01-05 07:25] VITALS: BP 125/64; PULSE 81; RESP 16; TEMP 36.7; O2SAT 99
[2021-01-05] MEDS: NYSTATIN 500,000 UNIT/5 ML UDC 500000 UNIT PO ×4 (08:13→21:55)
[2021-01-05] MEDS: Multivitamins,Ther W-Minerals Tablet 1 TABLET GT (08:13)
[2021-01-05] MEDS: Chlorhexidine 480 ML 15 ML PO ×2 (08:13→21:56)
[2021-01-05] MEDS: Senna/Docusate Sodium 1 Tablet 2 TABLET PO (08:14)
[2021-01-05] MEDS: Thiamine Hydrochloride 100 MG Tablet GT (08:14)
[2021-01-05 08:51] VITALS: O2SAT 99
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
[2021-01-05 19:06] VITALS: BP 128/74; PULSE 71; RESP 18; TEMP 36.9; O2SAT 99
[2021-01-05 20:06] VITALS: PULSE 71; RESP 16; O2SAT 95
[2021-01-05] MEDS: MELATONIN 3 MG TABLET 6 MG GT (21:55)
[2021-01-05] MEDS: Pivot 1.5 Cal 1,000 ML BOTTLE 250 ML GT (22:12)
[2021-01-06] MEDS: Heparin Injection (Vial) 5,000 UNIT/ML VIAL 5000 UNIT SC ×3 (05:54→20:27)
[2021-01-06 07:30] VITALS: BP 103/69; PULSE 79; RESP 18; TEMP 36.7; O2SAT 98
[2021-01-06] MEDS: Multivitamins,Ther W-Minerals Tablet 1 TABLET GT (07:49)
[2021-01-06] MEDS: Thiamine Hydrochloride 100 MG Tablet GT (07:49)
[2021-01-06] MEDS: NYSTATIN 500,000 UNIT/5 ML UDC 500000 UNIT PO ×4 (07:50→20:27)
[2021-01-06] MEDS: Chlorhexidine 480 ML 15 ML PO ×2 (07:50→20:27)
[2021-01-06] MEDS: Ondansetron 8 MG Tablet 4 MG GT (11:03)
[2021-01-06 19:28] VITALS: BP 131/73; PULSE 72; RESP 17; TEMP 36.7; O2SAT 97
[2021-01-06] MEDS: MELATONIN 3 MG TABLET 6 MG GT (20:27)
[2021-01-06] MEDS: Pivot 1.5 Cal 1,000 ML BOTTLE 250 ML GT (20:43)
[2021-01-06] MEDS: Acetaminophen 650 MG/20 ML UDC GT (21:05)
[2021-01-07] MEDS: Heparin Injection (Vial) 5,000 UNIT/ML VIAL 5000 UNIT SC ×3 (04:40→21:07)
--- NOTE | 2021-01-07 07:19 | NURSING ---
REVIEWED AND AGREE WITH [employer]CTIONAL ASSESSMENT AND HANDOFF CHARTING.
[2021-01-07 07:36] VITALS: BP 112/55; PULSE 66; RESP 17; TEMP 36.2; O2SAT 99
[2021-01-07] MEDS: Multivitamins,Ther W-Minerals Tablet 1 TABLET GT (07:40)
[2021-01-07] MEDS: Thiamine Hydrochloride 100 MG Tablet GT (07:40)
[2021-01-07] MEDS: NYSTATIN 500,000 UNIT/5 ML UDC 500000 UNIT PO ×4 (08:41→21:10)
[2021-01-07] MEDS: Chlorhexidine 480 ML 15 ML PO ×2 (08:41→21:15)
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
[2021-01-07 19:30] VITALS: BP 115/67; PULSE 89; RESP 17; TEMP 35.7; O2SAT 98
[2021-01-07] MEDS: Acetaminophen 650 MG/20 ML UDC GT (20:57)
[2021-01-07] MEDS: MELATONIN 3 MG TABLET 6 MG GT (21:10)
[2021-01-07] MEDS: Senna/Docusate Sodium 1 Tablet 2 TABLET PO (21:12)
[2021-01-07] MEDS: Pivot 1.5 Cal 1,000 ML BOTTLE 250 ML GT (21:22)
[2021-01-08] MEDS: Heparin Injection (Vial) 5,000 UNIT/ML VIAL 5000 UNIT SC ×3 (06:13→20:52)
[2021-01-08 07:44] VITALS: BP 116/57; PULSE 67; RESP 18; TEMP 36.3; O2SAT 100
--- NOTE | 2021-01-08 08:00 | CASEMGMT ---
Social Work Team meeting held. Patient present. Patient son, Will present via speaker phone. Patient plans to discharge to home alone. Patient with insurance update for tomorrow. Plan is to continue with further care and treatment on the Rehab Unit and to re-team patient next week if continued stay is approved by insurance. No discharge date set. Will continue to follow. Luzma BARRETO, MARIA ISABELS
[2021-01-08] MEDS: Chlorhexidine 480 ML 15 ML PO ×2 (09:09→20:46)
[2021-01-08] MEDS: NYSTATIN 500,000 UNIT/5 ML UDC 500000 UNIT PO ×4 (09:09→20:53)
[2021-01-08] MEDS: Thiamine Hydrochloride 100 MG Tablet GT (09:09)
[2021-01-08] MEDS: Multivitamins,Ther W-Minerals Tablet 1 TABLET GT (09:09)
[2021-01-08] MEDS: Doxycycline 100 MG CAPSULE PO ×2 (10:02→20:52)
--- NOTE | 2021-01-08 10:08 | NURSING ---
suture removed form scalp. incision clean/dry well approximated. pt tolerated well
[2021-01-08] MEDS: BACITRACIN 15 GM Tube 1 APPLIC TOPICAL ×2 (17:49→20:51)
[2021-01-08 19:18] VITALS: BP 103/56; PULSE 79; RESP 16; TEMP 36.9; O2SAT 98
--- NOTE | 2021-01-08 19:28 | PN.TCU_ITS ---
Subjective Subjective Patient seen, examined on IDT rounds. She is stand by assist for basic care. Her son was involved with rounds on speaker phone. Her goal is to discharge home alone. Her significant other Timo who lives 5 minutes away willing to help out at home. Today she had irritation inferior to her PEG tube. She also had ir ritation at site bolt on scalp at crown of head. Objective Data Objective Data Vital Signs: Vital Signs Temp Pulse Resp BP Pulse Ox 98.4 F 79 16 103/56 L 98 01/08/21 19:18 01/08/21 19:18 01/08/21 19:18 01/08/21 19:18 01/08/21 19:18 Oxygen Delivery Method Room Air Weight: 61.3 kg Body Mass Index (BMI) 27.1 Intake & Output: Intake and Output for Last 24 Hours 01/06/21 01/07/21 01/08/21 23:59 23:59 23:59 Intake Total 760 / 760 2089 / 0 1470 / 1470 Balance 760 / 760 2089 1470 / 1470 Lab / Micro Data Result Diagrams: 01/04/21 05:05 01/04/21 05:05 Physical Exam Const alert and oriented x3 General Appearance: cooperative HEENT normocephalic Eyes PERRL and EOMs intact bilaterally Neck supple, no JVD and no carotid bruits Resp normal respiratory effort, normal air movement and clear to auscultation bilaterally Cardio regular rate and regular rhythm GI normal to inspection, nondistended, normoactive bowel sounds, non-tender and non-distended Extremity normal capillary refill General Extremity: Negative for edema Skin no rashes or lesions noted General Skin Exam: no breakdown Psych affect normal Appearance: appropriate Assessment & Plan Assessment/Plan (1) Debility: (2) Traumatic brain injury: (3) Dizziness: (4) Dysphagia: (5) Nausea: (6) Alcohol dependence: PLAN: 65 year old female with below past medical history hospitalized for traumatic brain injury, status post trach, status post PEG, admitted to with debility, here for greater than 3 hours daily rehabilitation, strengthening, prior to discharge home alone with support. * Debility - PT/OT. * Pain - Tylenol 650MG Q6H PRN pain (1-10). * Bowel - Senna/colace 2 tablets BID, Dulcolax 10MG CA x 1 dose PRN, MOM 30ML x 1 dose PRN. * DVT prophylaxis - Heparin 5,000 units SC Q8H. * Shortness of breath - Albuterol 2.5MG Q6H PRN. * PEG site irritation - Bacitracin ointment topical BID. * TBI - ?Parlodel 10MG Q8H. * Oral hygiene - Peridex 15ML BID. * Acne scalp - remove suture, warm compresses, Doxycycline 100MG BID x 7 days. * Dizziness - Meclizine 12.5MG TID PRN. * Insomnia - Melatonin 6MG QHS. * Nutrition - MVI daily, Pivot 1.5 250ML 4x/day, hold if eating 50% or greater of meal. * Thrush - Nystatin 500,000 units 4x/day thru 01/14/2021. * Nausea - Zofran 4MG Q8H PRN. * Alcohol dependence - Thiamine 100MG daily. * Zinc deficiency - Zinc sulfate 220MG daily. Capacity Capacity Assessment Tool Can the patient make a choice & communicate that choice?: Yes Can the patient understand benefits, risks and alternatives?: Yes Can the patient make a logical, rational choice?: Yes Is the choice the patient makes consistent w/ their values?: Yes Is there an impending, emergent risk to the patient?: No Does the patient have an Advance Directive?: No Is there a Surrogate Available?: Yes i.e. HCPOA: Yes i.e. close relative (spouse, child, parent, sibling)?: Yes
[2021-01-08] MEDS: MELATONIN 3 MG TABLET 6 MG GT (20:51)
[2021-01-08] MEDS: Senna/Docusate Sodium 1 Tablet 2 TABLET PO (20:54)
[2021-01-08] MEDS: Pivot 1.5 Cal 1,000 ML BOTTLE 250 ML GT (21:11)
--- NOTE | 2021-01-09 04:17 | NURSING ---
Reviewed and agree with [employer] documentation and [employer] assessment charting.
[2021-01-09] MEDS: Heparin Injection (Vial) 5,000 UNIT/ML VIAL 5000 UNIT SC ×3 (06:34→20:17)
[2021-01-09 07:19] VITALS: BP 112/58; PULSE 78; RESP 18; TEMP 36.3; O2SAT 99
--- NOTE | 2021-01-09 08:24 | PN.TCU_ITS ---
Subjective Subjective Patient seen, examined. She slept better last night, her previous night sleep was from anxiety thinking about IDT meeting. Her scalp feels better, and her PEG site is improved, she is positioning her PEG tube differently. Objective Data Objective Data Vital Signs: Vital Signs Temp Pulse Resp BP Pulse Ox 97.4 F L 78 18 112/58 L 99 01/09/21 07:19 01/09/21 07:19 01/09/21 07:19 01/09/21 07:19 01/09/21 07:19 Oxygen Delivery Method Room Air Weight: 61.6 kg Body Mass Index (BMI) 27.1 Intake & Output: Intake and Output for Last 24 Hours 01/07/21 01/08/21 01/09/21 23:59 23:59 23:59 Intake Total 2089 480 / 480 Balance 2089 480 / 480 Lab / Micro Data Result Diagrams: 01/04/21 05:05 01/04/21 05:05 Physical Exam Const alert and oriented x3 General Appearance: cooperative HEENT normocephalic Eyes PERRL and EOMs intact bilaterally Neck supple, no JVD and no carotid bruits Neck Narrative: Trachestomy. Resp normal respiratory effort, normal air movement and clear to auscultation bilaterally Cardio regular rate and regular rhythm GI normal to inspection, nondistended, normoactive bowel sounds, non-tender and non-distended GI Narrative: PEG. Extremity normal capillary refill General Extremity: Negative for edema Skin no rashes or lesions noted General Skin Exam: no breakdown Psych affect normal Appearance: appropriate Assessment & Plan Assessment/Plan (1) Debility: (2) Traumatic brain injury: (3) Dizziness: (4) Dysphagia: (5) Nausea: (6) Alcohol dependence: PLAN: 65 year old female with below past medical history hospitalized for traumatic brain injury, status post trach, status post PEG, admitted to with debility, here for greater than 3 hours daily rehabilitation, strengthening, prior to discharge home alone with support. * Debility - PT/OT. * Pain - Tylenol 650MG Q6H PRN pain (1-10). * Bowel - Senna/colace 2 tablets BID, Dulcolax 10MG [place] x 1 dose PRN, MOM 30ML x 1 dose PRN. * DVT prophylaxis - Heparin 5,000 units SC Q8H. * Shortness of breath - Albuterol 2.5MG Q6H PRN. * PEG site irritation - Bacitracin ointment topical BID. * TBI - Parlodel 10MG Q8H, improves neurological sequelae of TBI. * Oral hygiene - Peridex 15ML BID. * Acne scalp - remove suture, warm compresses, Doxycycline 100MG BID x 7 days. * Dizziness - Meclizine 12.5MG TID PRN. * Insomnia - Melatonin 6MG QHS. * Nutrition - MVI daily, Pivot 1.5 250ML 4x/day, hold if eating 50% or greater of meal. * Thrush - Nystatin 500,000 units 4x/day thru 01/14/2021. * Nausea - Zofran 4MG Q8H PRN. * Alcohol dependence - Thiamine 100MG daily. * Zinc deficiency - Zinc sulfate 220MG daily. Capacity Capacity Assessment Tool Can the patient make a choice & communicate that choice?: Yes Can the patient understand benefits, risks and alternatives?: Yes Can the patient make a logical, rational choice?: Yes Is the choice the patient makes consistent w/ their values?: Yes Is there an impending, emergent risk to the patient?: No Does the patient have an Advance Directive?: No Is there a Surrogate Available?: Yes i.e. HCPOA: Yes i.e. close relative (spouse, child, parent, sibling)?: Yes
[2021-01-09] MEDS: BACITRACIN 15 GM Tube 1 APPLIC TOPICAL ×2 (09:27→22:48)
[2021-01-09] MEDS: Doxycycline 100 MG CAPSULE PO ×2 (09:28→20:18)
[2021-01-09] MEDS: Multivitamins,Ther W-Minerals Tablet 1 TABLET GT (09:28)
[2021-01-09] MEDS: Chlorhexidine 480 ML 15 ML PO ×2 (09:28→20:15)
[2021-01-09] MEDS: NYSTATIN 500,000 UNIT/5 ML UDC 500000 UNIT PO ×4 (09:28→20:16)
[2021-01-09] MEDS: Thiamine Hydrochloride 100 MG Tablet GT (09:29)
[2021-01-09 19:30] VITALS: BP 94/49; PULSE 76; RESP 16; TEMP 36.5; O2SAT 99
[2021-01-09] MEDS: MELATONIN 3 MG TABLET 6 MG GT (20:17)
[2021-01-09] MEDS: Pivot 1.5 Cal 1,000 ML BOTTLE 250 ML GT (20:18)
[2021-01-09] MEDS: Senna/Docusate Sodium 1 Tablet 2 TABLET PO (22:54)
[2021-01-10] MEDS: Heparin Injection (Vial) 5,000 UNIT/ML VIAL 5000 UNIT SC ×3 (06:18→20:56)
[2021-01-10 07:29] VITALS: BP 127/55; PULSE 75; RESP 18; TEMP 36.5; O2SAT 98
--- NOTE | 2021-01-10 08:32 | PN.TCU_ITS ---
Subjective Subjective Patient seen, examined today. She has no new problems, concerns, issues, complaints. She felt tired yesterday, but she feels her energy level today is much improved. Modified barium swallow today. Objective Data Objective Data Vital Signs: Vital Signs Temp Pulse Resp BP Pulse Ox 97.7 F L 75 18 127/55 H 98 01/10/21 07:29 01/10/21 07:29 01/10/21 07:29 01/10/21 07:29 01/10/21 07:29 Oxygen Delivery Method Room Air Weight: 61.6 kg Body Mass Index (BMI) 27.1 Intake & Output: Intake and Output for Last 24 Hours 01/08/21 01/09/21 01/10/21 23:59 23:59 23:59 Intake Total 2019 1120 / 1120 620 / 620 Balance 2019 1120 / 1120 620 / 620 Lab / Micro Data Result Diagrams: 01/04/21 05:05 01/04/21 05:05 Physical Exam Const alert and oriented x3 General Appearance: cooperative HEENT normocephalic Eyes PERRL and EOMs intact bilaterally Neck supple, no JVD and no carotid bruits Neck Narrative: Trachestomy. Resp normal respiratory effort, normal air movement and clear to auscultation bilaterally Cardio regular rate and regular rhythm GI normal to inspection, nondistended, normoactive bowel sounds, non-tender and non-distended GI Narrative: PEG. Extremity normal capillary refill General Extremity: Negative for edema Skin no rashes or lesions noted General Skin Exam: no breakdown Psych affect normal Appearance: appropriate Assessment & Plan Assessment/Plan (1) Debility: (2) Traumatic brain injury: (3) Dizziness: (4) Dysphagia: (5) Nausea: (6) Alcohol dependence: PLAN: 65 year old female with below past medical history hospitalized for traumatic brain injury, status post trach, status post PEG, admitted to with debility, here for greater than 3 hours daily rehabilitation, strengthening, prior to discharge home alone with support. * Debility - PT/OT/ST. * Dysphagia - Modified barium swallow today. * Pain - Tylenol 650MG Q6H PRN pain (1-10). * Bowel - Senna/colace 2 tablets BID, Dulcolax 10MG [place] x 1 dose PRN, MOM 30ML x 1 dose PRN. * DVT prophylaxis - Heparin 5,000 units SC Q8H. * Shortness of breath - Albuterol 2.5MG Q6H PRN. * PEG site irritation - Bacitracin ointment topical BID. * TBI - Parlodel 10MG Q8H, improves neurological sequelae of TBI. * Oral hygiene - Peridex 15ML BID. * Acne scalp - remove suture, warm compresses, Doxycycline 100MG BID x 7 days. * Dizziness - Meclizine 12.5MG TID PRN. * Insomnia - Melatonin 6MG QHS. * Nutrition - MVI daily, Pivot 1.5 250ML 4x/day, hold if eating 50% or greater of meal. * Thrush - Nystatin 500,000 units 4x/day thru 01/14/2021. * Nausea - Zofran 4MG Q8H PRN. * Alcohol dependence - Thiamine 100MG daily. * Zinc deficiency - Zinc sulfate 220MG daily. Capacity Capacity Assessment Tool Can the patient make a choice & communicate that choice?: Yes Can the patient understand benefits, risks and alternatives?: Yes Can the patient make a logical, rational choice?: Yes Is the choice the patient makes consistent w/ their values?: Yes Is there an impending, emergent risk to the patient?: No Does the patient have an Advance Directive?: No Is there a Surrogate Available?: Yes i.e. HCPOA: Yes i.e. close relative (spouse, child, parent, sibling)?: Yes
[2021-01-10] MEDS: BACITRACIN 15 GM Tube 1 APPLIC TOPICAL ×2 (08:41→20:55)
[2021-01-10] MEDS: Multivitamins,Ther W-Minerals Tablet 1 TABLET GT (08:42)
[2021-01-10] MEDS: Doxycycline 100 MG CAPSULE PO ×2 (08:42→20:55)
[2021-01-10] MEDS: Chlorhexidine 480 ML 15 ML PO ×2 (08:42→20:53)
[2021-01-10] MEDS: NYSTATIN 500,000 UNIT/5 ML UDC 500000 UNIT PO ×3 (08:42→20:55)
[2021-01-10] MEDS: Thiamine Hydrochloride 100 MG Tablet GT (08:43)
--- NOTE | 2021-01-10 14:21 | ST.MBS ---
Modified Barium Swallow - Patient Information Study Date: 01/10/21 Study Time: 13:30 Direct Billable Minutes: 105 Total Minutes procedure & reportin Diagnosis: Dysphagia. unspecified (R13.10) Referring Physician: Dena Wall Reason for Referral: Objectively assess for silent aspiration risk and further assess patient for swallow dysfunction s/p TBI. Medical History: MARGIE RAMOS, is a 65 F with a past medical history of fibromyalgia, GERD, bipolar disorder, anxiety/depression, heavy alcohol use, chronic benzodiazepine use for insomnia, and HTN who had been drinking at the [facility] and then fell down a flight of stairs losing consciousness for 2-3 minutes. She was found by a friend who she had been drinking with and she was taken to [facility] ED where a CT brain showed an epidural hematoma with a 1 cm shift. She was transferred to [facility] from [facility] and taken immediately to the OR for evacuation of the hematoma and placement of an intracranial pressure monitor. The bolt was removed on 12/02/2020. Imaging also showed intraparenchymal hemorrhage of the R frontal and temporal lobes. She was transferred to [facility] after having a PEG and trach. She was transferred to [facility] acute inpt rehab on 01/03/21 for >3 hours of therapy daily to restore her at or near her prior level of functioning. The patient was upgraded from NPO to soft and bite sized textures / thin liquids with 1:1 direct supervision when evaluated by speech therapy on 01/04/2021 with recommendation to participate in MBS study to rule out risk for silent aspiration and further assess for swallow dysfunction. Current Diet Ordered: Soft & Bite Size Textures / Thin Liquids Dentition: WNL Mental Status: Impaired - Cognitive-linguistic impairment s/p TBI Respiratory Status: Oxygenating on Room Air - Study Findings Consistencies: Thin Liquid, [place] Thick Liquid, Honey Thick Liquid, Pudding, Cookie - Penetration-Aspiration Scale Penetration-Aspiration Scale: OBJECTIVE ASSESSMENT OF SWALLOW FUNCTION (QUANTITATIVE ? PER TRIAL): PENETRATION / ASPIRATION SCALE (BROWN): 1 = does not enter airway 2 = enters airway/above vocal folds/ejected 3 = enters airway/above vocal folds/not ejected 4 = enters airway/contacts vocal folds/ejected 5 = enters airway/contacts vocal folds/not ejected 6 = enters airway/below vocal folds/ejected 7 = enters airway/below vocal folds/not ejected despite effort 8 = enters airway/below vocal folds/no effort VIDEOFLOROSCOPIC SCALE SCORE (BROWN): Grade I = aspiration of material that has penetrated into the laryngeal vestibule, intact cough reflex Grade II = aspiration < 10 % of the bolus, intact cough reflex Grade III = aspiration of < 10 % of the bolus, reduced cough reflex or aspiration of > 10 % of the bolus, intact cough reflex Grade IV = aspiration of > 10 % of the bolus, reduced cough reflex - Penetration-Aspiration Scale Score Thin Liquid via teaspoon Result: 1= does not enter airway Thin Liquid via teaspoon Trial 2 Result: 1= does not enter airway Thin Liquid via small single sip from cup Result: 1= does not enter airway Thin Liquid via sequential sips from cup Result: 2= enter airway/above vocal folds/ejected [place] Thick Liquid via small single sip from cup Result: 1= does not enter airway Honey Thick Liquid via small single sip from cup Result: 1= does not enter airway Pudding with Esophageal Screen Result: 1= does not enter airway Comment: Retrograde flow of bolus below UES observed. Cookie Result: 1= does not enter airway Thin Liquid via single sip from straw Result: 1= does not enter airway Thin Liquid via sequential sips from straw Result: 1= does not enter airway - Oral Phase Labial Seal: No Labial Escape Tongue Control During Bolus Hold: Posterior escape of less than half of bolus Bolus Preparation/Mastication: Slow prolonged chewing/mashing with complete recollection Bolus Transport/Lingual Motion: Delayed initiation of tongue motion Oral Residue: Residue collection on oral structures - Piecemeal deglutition of pudding and cookie trials; however, patient independently initiated second swallow to clear oral residues. - Pharyngeal Phase Initiation of Pharyngeal Swallow: Bolus head in pyriforms - Decreased bolus control noted with several thin liquid trials initiating in the pyriform sinuses. Soft Palate Elevation: No bolus between soft palate and pharyngeal wall Laryngeal Elevation: Partial superior movement thyroid cart/partial apprx aryt-epig petiole Anterior Hyoid Excursion: Partial anterior movement Epiglottic Movement: Partial inversion Laryngeal Vestibule Closure at Height of Swallow: Incomplete; narrow column of air/contrast in laryngeal vestibule Pharyngeal Stripping Wave: Present - diminished Pharyngoesophageal Segment Opening: Parital distension and partial duration; parital obstruction of flow Tongue Base Retraction: Trace column of contrast between tongue base & post. pharyngeal wall - Trace penetration only observed with sequential sips of thin liquids via cup. Pharyngeal Residue: Collection of residue within or on pharyngeal structures - Collection of residue noted with sequential sips of thin liquids via straw. Remainder of study the patient presented with trace pharyngeal residues. - Esophageal Phase Esophageal Clearance: Esophageal retention w/ retrograde flow below pharyngoesophageal seg. - Treatment Strategies Effects of treatment strategies attemped:: Decreased bolus rate/single sips = Effective. Improved bolus control of thin liquids and swallow onset. Decreased bolus size = Effective. - Diagnosis/Impression Diagnosis: Mild oropharyngeal phase dysphagia Impression: The pt's oral phase of the swallow is primarily marked by deficits with decreased bolus control due to prolonged mastication and delayed tongue motion resulting in premature posterior loss of bolus and suboptimal bolus placement upon swallow onset, especially noted with thin liquid trials. The pharyngeal phase of the swallow is primarily marked by delayed initiation of the pharyngeal swallow with bolus head of thin liquid trials in the pyriforms. The pt additionally presents with mild-moderately decreased anterior hyoid excursion and laryngeal elevation during the swallow resulting in decreased epiglottic inversion; however, the pt was able to maintain good airway closure during the swallow. She did present with trace penetration of thin liquids consumed via sequential sips. The pt presented with mild pharyngeal residues only when consuming sequential sips. The pt benefits from use of single sips to improve swallow onset time, airway closure, and pharyngeal residue. - Recommendations Diet: Regular Textures - Easy to Chew (IDDSI Level 7), Thin Liquids Comment: Sips one at a time. Compensatory Strategies: Small Bites, Small Sips, Slow Rate, Sitting upright, Remain sitting upright for 30 minutes after PO intake Supervision: Distant Supervision Recommend Repeat Modified Barium Swallow: TBD Need for Skilled Speech Therapy Services: Yes Comment: Would recommend continued speech therapy services to continue implementation of oropharyngeal exercise program with emphasis on improving anterior hyoid excursion, laryngeal elevation, and swallow onset time. Would consider pt for Sandra, Reece, and effortful swallows. Additionally, the patient requires continued education re: diet recommendations and compensatory strategies to decrease risk for aspiration. Would consider the patient for trials of regular textures with MARKET STALL VENDOR for potential diet upgrade to Regular textures in upcoming sessions. Education Completed: 1. Described result of evaluation., 2. Pt understands evaluation & agrees with goals and treatment plan., 7. Pt requires further education on strategies & risks. - Status Active ST Patient: Active - Contact Information [facility] Speech Therapy:: Didi Marquis M.A., CCC-MARKET STALL VENDOR Speech Language Pathologist [facility] [address] [place] [address] [email or web address] [phone]
--- NOTE | 2021-01-10 16:03 | NURSING ---
wound photo: abdomen (PEG site)
[2021-01-10 19:05] VITALS: BP 121/65; PULSE 73; RESP 17; TEMP 36.3; O2SAT 100
[2021-01-10] MEDS: MELATONIN 3 MG TABLET 6 MG GT (20:55)
[2021-01-10] MEDS: Pivot 1.5 Cal 1,000 ML BOTTLE 250 ML GT (20:57)
[2021-01-11] MEDS: Heparin Injection (Vial) 5,000 UNIT/ML VIAL 5000 UNIT SC ×3 (05:11→22:13)
[2021-01-11 07:38] VITALS: BP 119/61; PULSE 80; RESP 18; TEMP 36.4; O2SAT 100
[2021-01-11] MEDS: Thiamine Hydrochloride 100 MG Tablet GT (08:50)
[2021-01-11] MEDS: Multivitamins,Ther W-Minerals Tablet 1 TABLET GT (08:50)
[2021-01-11] MEDS: Doxycycline 100 MG CAPSULE PO ×2 (08:50→22:14)
[2021-01-11] MEDS: Chlorhexidine 480 ML 15 ML PO ×2 (08:51→22:10)
[2021-01-11] MEDS: NYSTATIN 500,000 UNIT/5 ML UDC 500000 UNIT PO ×4 (08:51→22:12)
[2021-01-11] MEDS: BACITRACIN 15 GM Tube 1 APPLIC TOPICAL ×2 (10:45→22:14)
[2021-01-11 22:00] VITALS: BP 120/59; PULSE 74; RESP 14; TEMP 36.7; O2SAT 99
[2021-01-11] MEDS: MELATONIN 3 MG TABLET 6 MG GT (22:12)
[2021-01-11] MEDS: Senna/Docusate Sodium 1 Tablet 2 TABLET PO (22:13)
[2021-01-11] MEDS: Pivot 1.5 Cal 1,000 ML BOTTLE 250 ML GT (22:49)
[2021-01-12] MEDS: Heparin Injection (Vial) 5,000 UNIT/ML VIAL 5000 UNIT SC ×3 (05:25→22:08)
[2021-01-12 08:44] VITALS: BP 105/63; PULSE 72; RESP 16; TEMP 36.6; O2SAT 98
[2021-01-12] MEDS: Chlorhexidine 480 ML 15 ML PO ×2 (08:46→22:07)
[2021-01-12] MEDS: NYSTATIN 500,000 UNIT/5 ML UDC 500000 UNIT PO ×4 (08:47→22:06)
[2021-01-12] MEDS: Senna/Docusate Sodium 1 Tablet 2 TABLET PO ×2 (08:47→22:09)
[2021-01-12] MEDS: Doxycycline 100 MG CAPSULE PO ×2 (08:47→22:07)
[2021-01-12] MEDS: Multivitamins,Ther W-Minerals Tablet 1 TABLET GT (08:47)
[2021-01-12] MEDS: Thiamine Hydrochloride 100 MG Tablet GT (08:47)
[2021-01-12] MEDS: BACITRACIN 15 GM Tube 1 APPLIC TOPICAL ×2 (11:10→22:07)
--- NOTE | 2021-01-12 12:57 | PCM.PN.BLA ---
Progress Note Afebrile VSS Maintaining appropriate oxygen saturation on RA Oral intake is good Discussed with nursing - no problems that need addressed Reviewed the PT/OT/ST notes - she is ambulating 160 ft with no AD now. ST is starting to work on more complex thought processing, such as medication management, finances management, etc. All of the therapists document that she is impulsive. Medication list reviewed. Has not been taking Meclizine, Zofran and Albuterol so will discontinue. She is c/o abd pain form the PEG tube and wants to know when she can have it out. Physical Exam Const alert and oriented x3 General Appearance: well developed and anxious Resp normal respiratory effort and clear to auscultation bilaterally Cardio regular rate, regular rhythm, no murmurs and no gallops GI normal to inspection, nondistended, normoactive bowel sounds and soft to palpation GI Narrative: The abd is soft and ND. The PEG site has no erythema, no purulent DC and it is clean. We are no longer using this and in fact she has been upgraded to regular textures and thin liquids. Extremity no calf tenderness and no pedal edema Skin Skin Narrative: The scalp incision is intact and there is no katelynn-incisional erythema and no DC. Neuro CN's II-XII intact bilaterally and moves all extremities Assessment & Plan Assessment/Plan (1) Debility: (2) Skull fracture with cerebral contusion: QUALIFIERS: Encounter type: subsequent encounter (3) Intraparenchymal hemorrhage of brain: (4) Traumatic brain injury: (5) Alcohol dependence: (6) Dysphagia: (7) Anxiety and depression: PLAN: 1. Continue therapy. continue to observe to see if any psychiatric medications are needed. She is sleeping well. I think therapy is going to be difficult due to her inability to focus/concentrate and stay on topic and follow instructions. 2. I continued to urge her to seek OP alcohol cessation counselling. she still maintains she is quitting and does not need help. She does admit that she was abusing ETOH. Visit Charges Inpatient E&M: 74999 Subs Hosp L2
[2021-01-12 21:59] VITALS: BP 117/57; PULSE 74; RESP 16; TEMP 36.7; O2SAT 98
[2021-01-12] MEDS: MELATONIN 3 MG TABLET 6 MG GT (22:06)
[2021-01-13] MEDS: Acetaminophen 650 MG/20 ML UDC GT (00:02)
[2021-01-13] MEDS: Heparin Injection (Vial) 5,000 UNIT/ML VIAL 5000 UNIT SC ×3 (06:07→21:26)
[2021-01-13] MEDS: Multivitamins,Ther W-Minerals Tablet 1 TABLET GT (07:52)
[2021-01-13] MEDS: Thiamine Hydrochloride 100 MG Tablet GT (07:52)
[2021-01-13] MEDS: NYSTATIN 500,000 UNIT/5 ML UDC 500000 UNIT PO ×4 (07:53→21:27)
[2021-01-13] MEDS: Chlorhexidine 480 ML 15 ML PO ×2 (07:53→21:26)
[2021-01-13 08:42] VITALS: BP 125/74; PULSE 72; RESP 16; TEMP 36.8; O2SAT 100
[2021-01-13] MEDS: Doxycycline 100 MG CAPSULE PO ×2 (09:20→21:27)
[2021-01-13] MEDS: BACITRACIN 15 GM Tube 1 APPLIC TOPICAL ×2 (13:35→21:28)
[2021-01-13 21:04] VITALS: BP 108/62; PULSE 80; RESP 16; TEMP 36.8; O2SAT 98
[2021-01-13] MEDS: MELATONIN 3 MG TABLET 6 MG GT (21:26)
[2021-01-13 22:00] VITALS: PULSE 68; RESP 16
[2021-01-14] MEDS: Heparin Injection (Vial) 5,000 UNIT/ML VIAL 5000 UNIT SC ×3 (06:09→20:38)
[2021-01-14] MEDS: Multivitamins,Ther W-Minerals Tablet 1 TABLET GT (08:11)
[2021-01-14] MEDS: Doxycycline 100 MG CAPSULE PO ×2 (08:11→20:38)
[2021-01-14] MEDS: Thiamine Hydrochloride 100 MG Tablet GT (08:11)
[2021-01-14] MEDS: Chlorhexidine 480 ML 15 ML PO ×2 (08:11→20:42)
[2021-01-14] MEDS: NYSTATIN 500,000 UNIT/5 ML UDC 500000 UNIT PO ×3 (08:13→20:40)
[2021-01-14 08:30] VITALS: BP 114/77; PULSE 77; RESP 16; TEMP 36.8; O2SAT 98
[2021-01-14] MEDS: Acetaminophen 325 MG Tablet 650 MG PO (09:16)
[2021-01-14] MEDS: BACITRACIN 15 GM Tube 1 APPLIC TOPICAL ×2 (09:18→20:37)
[2021-01-14 19:24] VITALS: BP 109/76; PULSE 87; RESP 18; TEMP 36.7; O2SAT 98
[2021-01-14 20:30] VITALS: PULSE 73; RESP 17; O2SAT 97
[2021-01-14] MEDS: MELATONIN 3 MG TABLET 6 MG GT (20:39)
[2021-01-15] MEDS: Heparin Injection (Vial) 5,000 UNIT/ML VIAL 5000 UNIT SC ×3 (05:38→19:50)
[2021-01-15 07:04] VITALS: BP 120/72; PULSE 76; RESP 16; TEMP 36.6; O2SAT 97
--- NOTE | 2021-01-15 09:45 | CASEMGMT ---
Social Work Team meeting held. Patient present. Patient son, Will present via speaker phone. Team recommending continued stay on the Rehab Unit for further strengthening and endurance training. Patient with insurance update due on 01/16/2021. Patient plans to discharge to home alone. Plan will be to re-team patient next Friday if continued stay is approved by insurance. Patient reports that family and friend are able to assist at discharge. Will continue to follow. Luzma BARRETO, EVELIN-S
[2021-01-15] MEDS: Doxycycline 100 MG CAPSULE PO (11:03)
[2021-01-15] MEDS: Multivitamins,Ther W-Minerals Tablet 1 TABLET GT (11:03)
[2021-01-15] MEDS: Chlorhexidine 480 ML 15 ML PO ×2 (11:03→19:51)
[2021-01-15] MEDS: Thiamine Hydrochloride 100 MG Tablet GT (11:03)
[2021-01-15] MEDS: BACITRACIN 15 GM Tube 1 APPLIC TOPICAL ×2 (11:03→19:49)
--- NOTE | 2021-01-15 13:23 | PN_ITS ---
Progress Note Brittany was seen on team rounds today. Her son will participated by phone. Afebrile VSS Maintaining appropriate oxygen saturation on RA Oral intake is good Discussed with nursing - no problems that need addressed Reviewed the PT/OT/ST notes - therapists continue to say she is impulsive and has a very difficult time focussing and staying on topic. She tells us this is her personality but, it seems worse since the TBI. She has a son who has ADHD and 2 of his 3 children have ADHD. Medication list reviewed. She has a occasional RODRIGUEZ over the area where the bleed occurred but, it passes and I reassured her this is normal. She denies SOB, CP, nausea, diarrhea. She complains frequently about pain from the PEG. She wants to know if it can be removed. Tomorrow will make 6 weeks since it was put in while in [place]. Physical Exam Const alert and oriented x3 Constitutional Narrative: she is calmer than she was at admission. She is less fidgety and although she is verbose she is able to better maintain a stream of consciousness. General Appearance: well developed and anxious Eyes PERRL Eyes Narrative: no visual field cuts Neck supple, no JVD and No nodes Neck Narrative: the trach site is healing and there is only a very small opening now Resp normal respiratory effort, normal air movement, no use of accessory muscles and clear to auscultation bilaterally Effort and Inspection: able to speak in complete sentences and symmetric chest movement Cardio regular rate, regular rhythm, S1 normal heart sound, S2 normal heart sound, no murmurs, no rub and no gallops GI normal to inspection, nondistended, normoactive bowel sounds and soft to palpation GI Narrative: The abd is soft and ND. The PEG site has no erythema, no purulent DC and it is clean. We are no longer using this and in fact she has been upgraded to regular textures and thin liquids. Extremity no calf tenderness and no pedal edema Skin Skin Narrative: The scalp incision is intact and there is no katelynn-incisional erythema and no DC. Neuro oriented x3, CN's II-XII intact bilaterally and moves all extremities Neuro Narrative: She has decreased sensation on the R side of the head. Generalized weakness in all extremities. Poor endurance and fatigues easily still. Psych denies hallucinations and denies suicidal ideation Activity / Motor Behavior: other She overthinks and then she perseverates. she was given a handout to read on Strattera and she is now perseverating on the li ne that it can be associated with increased cardiac events and strokes.......even after I explained that this is likely dose related and she would be monitored for at least a week with initiation of the drug AND that we would be starting the lowest dose. Assessment & Plan Assessment/Plan (1) Debility: (2) Skull fracture with cerebral contusion: QUALIFIERS: Encounter type: subsequent encounter (3) Intraparenchymal hemorrhage of brain: (4) Traumatic brain injury: (5) Alcohol dependence: (6) Dysphagia: (7) Anxiety and depression: PLAN: 1. Now that I know there is a FH of ADHD her sx make more sense and I suspect she has ADD. She is agreeable to trying Strattera and will start 10 mg daily in the AM. I am going to give her some literature to read about the SX of ADD. 2. Continue to monitor BP, HR and anxiety while on Strattera 3. Continue therapy Visit Charges Inpatient E&M: 21968 Subs Hosp L2
[2021-01-15 19:33] VITALS: BP 102/58; PULSE 75; RESP 16; TEMP 36.6; O2SAT 96
[2021-01-15] MEDS: MELATONIN 3 MG TABLET 6 MG GT (19:50)
[2021-01-15] MEDS: Senna/Docusate Sodium 1 Tablet 2 TABLET PO (19:52)
[2021-01-15 20:08] VITALS: PULSE 71; RESP 17; O2SAT 96
[2021-01-16] MEDS: Heparin Injection (Vial) 5,000 UNIT/ML VIAL 5000 UNIT SC ×3 (06:05→20:21)
[2021-01-16 08:03] VITALS: BP 104/58; PULSE 78; RESP 16; TEMP 36.4; O2SAT 97
--- NOTE | 2021-01-16 10:31 | PCM.OPRPT ---
Problems Associated Problem List Diagnoses (1) S/P percutaneous endoscopic gastrostomy (PEG) tube placement: (2) Oropharyngeal dysphagia: (3) Skull fracture with cerebral contusion: Report of Operation Date of Procedure: 01/16/21 Pre-Operative Diagnosis: Oropharyngeal dysphagia, skull fracture, status post PEG tube placement Post-Operative Diagnosis: Same Surgery/Procedure Performed:: Removal of PEG tube Surgeon: Cristo King Type of Anesthesia: None Specimen's removed: [place] PEG tube Estimated Blood Loss (mL): <5 Description of Procedure: PEG tube was opened up. It was removed and once with motion. Inspection of the PEG tube revealed the mushroom tip to be intact. Sterile dressings were applied. The patient tolerated the procedure well. Admit VTE Documentation VTE Present on Admission: No VTE Mechan Device Prophylaxis: None VTE Pharm Prophylaxis ordered?: No Reason prophylaxis not ordered:: Treatment Not Indicated
[2021-01-16] MEDS: Chlorhexidine 480 ML 15 ML PO ×2 (11:16→20:22)
[2021-01-16] MEDS: Multivitamins,Ther W-Minerals Tablet 1 TABLET GT (11:16)
[2021-01-16] MEDS: Thiamine Hydrochloride 100 MG Tablet GT (11:16)
[2021-01-16 19:33] VITALS: BP 130/61; PULSE 77; RESP 16; TEMP 36.8; O2SAT 99
[2021-01-16] MEDS: MELATONIN 3 MG TABLET 6 MG GT (20:21)
[2021-01-16] MEDS: Senna/Docusate Sodium 1 Tablet 2 TABLET PO (20:23)
[2021-01-16] MEDS: BACITRACIN 15 GM Tube 1 APPLIC TOPICAL (20:39)
[2021-01-17] MEDS: Heparin Injection (Vial) 5,000 UNIT/ML VIAL 5000 UNIT SC ×3 (06:19→19:48)
[2021-01-17] MEDS: Chlorhexidine 480 ML 15 ML PO ×2 (08:04→19:49)
[2021-01-17] MEDS: Senna/Docusate Sodium 1 Tablet 2 TABLET PO ×2 (08:05→19:49)
[2021-01-17] MEDS: Thiamine Hydrochloride 100 MG Tablet GT (08:05)
[2021-01-17] MEDS: Multivitamins,Ther W-Minerals Tablet 1 TABLET GT (08:05)
[2021-01-17 08:27] VITALS: BP 123/63; PULSE 69; RESP 18; TEMP 36.6; O2SAT 99
[2021-01-17 19:30] VITALS: BP 141/74; PULSE 69; RESP 16; TEMP 36.5; O2SAT 100
[2021-01-17] MEDS: MELATONIN 3 MG TABLET 6 MG GT (19:48)
[2021-01-18] MEDS: Heparin Injection (Vial) 5,000 UNIT/ML VIAL 5000 UNIT SC ×3 (05:16→21:00)
[2021-01-18 07:18] VITALS: BP 132/74; PULSE 67; RESP 16; TEMP 36.8; O2SAT 98
[2021-01-18] MEDS: Chlorhexidine 480 ML 15 ML PO ×2 (09:44→20:59)
[2021-01-18] MEDS: Thiamine Hydrochloride 100 MG Tablet GT (09:44)
[2021-01-18] MEDS: Multivitamins,Ther W-Minerals Tablet 1 TABLET GT (09:44)
[2021-01-18] MEDS: ATOMOXETINE HCL 10 MG CAPSULE PO (09:47)
--- NOTE | 2021-01-18 14:32 | PCM.PN.BLA ---
Progress Note Afebrile VSS Maintaining appropriate oxygen saturation on RA Oral intake is fair Discussed with nursing - no problems that need addressed Reviewed the PT/OT/ST notes Medication list reviewed. She took the Strattera today....10 mg which is a very low dose. She was quite surprised she was able to take a nap today. She does not feel anxious. She denies palpitations. she has no calf pain, no cephalgia, no CP and no SOB. Physical Exam Const alert, oriented x3 and no apparent distress Constitutional Narrative: She is not gesticulating like she normally does and her speech is not as pressured. She seems relaxed and she was reading in the recliner chair. General Appearance: cooperative Resp normal respiratory effort, normal air movement and clear to auscultation bilaterally Effort and Inspection: able to speak in complete sentences Cardio regular rate and regular rhythm Narrative: she is no longer c/o the pain at the PEG site. the site is without erythema or warmth to touch Assessment & Plan Assessment/Plan (1) Debility: (2) History of recent fall: (3) Intraparenchymal hemorrhage of brain: (4) History of craniotomy: (5) Traumatic brain injury: (6) Skull fracture with cerebral contusion: QUALIFIERS: Encounter type: subsequent encounter (7) Attention deficit disorder (ADD) in adult: PLAN: 1. BMP, CBC with diff in the AM 2. Continue therapy 3. continue the Strattera 4. I am still concerned when she tells me that she wants to be able to have a drink now and then. I think she underestimates how hard it will be not to drink is she continues to socialize with Timo who is an alcoholic per her son Will. Visit Charges Inpatient E&M: 93263 Subs Hosp L1
[2021-01-18 19:27] VITALS: BP 113/67; PULSE 77; RESP 16; TEMP 36.4; O2SAT 97
[2021-01-18] MEDS: MELATONIN 3 MG TABLET 6 MG GT (21:00)
[2021-01-18] MEDS: Senna/Docusate Sodium 1 Tablet 2 TABLET PO (21:00)
[2021-01-19] MEDS: Heparin Injection (Vial) 5,000 UNIT/ML VIAL 5000 UNIT SC ×3 (05:26→20:46)
[2021-01-19 07:21] LABS: Absolute Lymphocyte Count 1.07 X10^3/uL (0.83-4.51); Basophil# 0.01 X10^3/uL; Basophil% 0.4 % (0-1); Eosinophil# 0.03 X10^3/uL; Eosinophils% 1.3 % (0-5); Hematocrit 40.8 % (37-47); Hemoglobin 13.1 g/dL (12.0-15.0); Lymphocyte # 1.07 X10^3/ul (0.83-4.51); Lymphocyte % 45.5 % (19-41); Mean Corp Hgb Conc 32.1 g/dL (32-36); Mean Corpuscular Hgb 29.2 pg (27.0-32.0); Mean Corpuscular Volume 90.9 fL (81-99); Mean Platelet Vol. 9.2 fl (6.2-12.0); Monocyte# 0.22 X10^3/uL; Monocyte% 9.4 % (0-10); NRBC Flagged by Analyzer 0 % (0-5); Neutrophil # 1.01 X10^3/uL (2.7-7.7); Platelet Count 147 K/mm3 (150-450); RBC Distribution Width CV 13.2 % (11.6-14.6); RBC Distribution Width SD 44.6 fl (35.1-43.9); Red Blood Count 4.49 M/mm3 (4.2-5.4); White Blood Count 2.4 K/mm3 (4.4-11.0)
[2021-01-19 07:27] VITALS: BP 123/74; PULSE 74; RESP 16; TEMP 36.7; O2SAT 98
[2021-01-19 07:35] LABS: Anion Gap 5 (5-15); BUN 10 mg/dL (7-18); BUN/Creat Ratio 16.5 RATIO (10-20); Calcium,Total 8.7 mg/dL (8.5-10.1); Chloride 105 mmol/L (98-107); Creatinine, Serum 0.61 mg/dL (0.55-1.02); EST Glomerular Filtration Rate 105 mL/min (>60); Est Glom Filt Rate - Afr Amer 127 mL/min (>60); Estimated Creatinine Clearance 91.34 ml/min; Glucose 94 mg/dL (74-106); Potassium 4.2 mmol/L (3.5-5.1); Sodium Level 140 mmol/L (136-145)
[2021-01-19] MEDS: Thiamine Hydrochloride 100 MG Tablet GT (08:28)
[2021-01-19] MEDS: Multivitamins,Ther W-Minerals Tablet 1 TABLET GT (08:28)
[2021-01-19] MEDS: Chlorhexidine 480 ML 15 ML PO ×2 (08:28→20:45)
[2021-01-19] MEDS: ATOMOXETINE HCL 10 MG CAPSULE PO (08:28)
--- NOTE | 2021-01-19 16:30 | PCM.PN.BLA ---
Progress Note afebrile VSS Maintaining appropriate oxygen saturation on RA Oral intake is adequate Discussed with nursing - no problems that need addressed Reviewed the PT/OT/ST notes Medication list reviewed. No adverse reaction to the Strattera started yesterday. she is feeling well today. she did not sleep that well last night but, she does not think it was the medication she thinks it was her mind racing. No cephalgia, CP, SOB, palpitations, weird dreams, hallucinations. she is now aware that she often talks too much and that it distracts her and increases he risk for aspiration. No cough. All lab from today was personally reviewed. The white blood cell count remains low at 2.4 but the hemoglobin is within normal limits today. Platelets are mildly decreased at 147,000. BMP is entirely within normal limits. Physical Exam Const alert, oriented x3 and no apparent distress Constitutional Narrative: The speech is less pressured and she is listening to me and not trying to talk over me as much today. She is not as fidgety. General Appearance: cooperative Resp normal respiratory effort, normal air movement and clear to auscultation bilaterally Cardio regular rhythm, no murmurs and no gallops Rate: regular rate GI soft to palpation, non-tender and non-distended Extremity no calf tenderness and no pedal edema Skin General Skin Exam: no breakdown Rashes: no rashes Assessment & Plan Assessment/Plan (1) Debility: (2) History of recent fall: (3) Traumatic brain injury: (4) Epidural hematoma: (5) History of craniotomy: (6) Encephalopathy: (7) Dysphagia: (8) Attention deficit disorder (ADD) in adult: (9) Leukopenia: PLAN: 1. continue the Strattera at the current dose for now. 2. she is very anxious and I think this may be a primary problem and not totally related to the ADD. She has a RX for Lorazepam from Dr. Collins and she takes this at night when she is unable to sleep. If she continues to have trouble sleeping will talk to her about Buspar or consider using 0.5 mg of Klonopin. 3. She has been leukopenic a few times in the past. Will defer W/U to Dr. Collins because she has no alarming findings at this time such as fever, wt loss, infection. 4. continue therapy Visit Charges Inpatient E&M: 05138 Subs Hosp L2
[2021-01-19 18:59] VITALS: BP 120/66; PULSE 60; RESP 18; TEMP 36.6; O2SAT 98
[2021-01-19] MEDS: MELATONIN 3 MG TABLET 6 MG GT (20:45)
[2021-01-19] MEDS: Senna/Docusate Sodium 1 Tablet 2 TABLET PO (20:45)
[2021-01-20] MEDS: Heparin Injection (Vial) 5,000 UNIT/ML VIAL 5000 UNIT SC ×3 (05:12→20:29)
[2021-01-20 07:44] VITALS: BP 116/67; PULSE 70; RESP 18; TEMP 36.2; O2SAT 96
[2021-01-20] MEDS: ATOMOXETINE HCL 10 MG CAPSULE PO (07:53)
[2021-01-20] MEDS: Thiamine Hydrochloride 100 MG Tablet GT (07:54)
[2021-01-20] MEDS: Multivitamins,Ther W-Minerals Tablet 1 TABLET GT (07:54)
[2021-01-20] MEDS: Chlorhexidine 480 ML 15 ML PO ×2 (07:56→20:33)
[2021-01-20] MEDS: Acetaminophen 325 MG Tablet 650 MG PO (20:28)
[2021-01-20] MEDS: Senna/Docusate Sodium 1 Tablet 2 TABLET PO (20:29)
[2021-01-20] MEDS: MELATONIN 3 MG TABLET 6 MG GT (20:29)
[2021-01-20 20:40] VITALS: BP 119/68; PULSE 66; RESP 18; TEMP 36.7; O2SAT 95
[2021-01-21] MEDS: Heparin Injection (Vial) 5,000 UNIT/ML VIAL 5000 UNIT SC ×3 (06:46→20:03)
[2021-01-21 07:27] VITALS: BP 132/69; PULSE 76; RESP 16; TEMP 36.7; O2SAT 99
[2021-01-21] MEDS: ATOMOXETINE HCL 10 MG CAPSULE PO (08:08)
[2021-01-21] MEDS: Multivitamins,Ther W-Minerals Tablet 1 TABLET GT (08:09)
[2021-01-21] MEDS: Thiamine Hydrochloride 100 MG Tablet GT (08:10)
[2021-01-21 20:00] VITALS: BP 118/65; PULSE 75; RESP 17; TEMP 36.8; O2SAT 98
[2021-01-21] MEDS: MELATONIN 3 MG TABLET 6 MG GT (20:02)
[2021-01-21] MEDS: Chlorhexidine 480 ML 15 ML PO (20:03)
[2021-01-21] MEDS: Senna/Docusate Sodium 1 Tablet 2 TABLET PO (20:03)
--- NOTE | 2021-01-22 01:31 | NURSING ---
Reviewed and agree with TALENT COORDINATOR documentation and TALENT COORDINATOR assessment charting.
[2021-01-22] MEDS: Heparin Injection (Vial) 5,000 UNIT/ML VIAL 5000 UNIT SC ×3 (06:20→20:56)
[2021-01-22] MEDS: Multivitamins,Ther W-Minerals Tablet 1 TABLET GT (07:42)
[2021-01-22] MEDS: Thiamine Hydrochloride 100 MG Tablet GT (07:42)
[2021-01-22] MEDS: ATOMOXETINE HCL 10 MG CAPSULE PO (07:42)
[2021-01-22] MEDS: Chlorhexidine 480 ML 15 ML PO ×2 (07:42→20:57)
[2021-01-22 08:04] VITALS: BP 113/65; PULSE 74; RESP 16; TEMP 36.6; O2SAT 98
--- NOTE | 2021-01-22 11:16 | PN_ITS ---
Progress Note Brittayn was seen on TEAM rounds today. Will was not available to participate by phone. Afebrile VSS Maintaining appropriate oxygen saturation on RA Oral intake is adequate Discussed with nursing - no problems that need addressed Reviewed the PT/OT/ST notes Medication list reviewed. She is very anxious today. This makes her nauseated and then she vomits. This has happened in the past and she has had panic attacks in the past. When she is anxious she can not attend to what is being said and she can not stay on topic. She talks over others and does not listen to what is being said. She takes Lorazepam at home when she can not go to sleep. She becomes hyperverbal when she is anxious and this makes the attention deficit worse. She denies CP, SOB, diarrhea, abd pain, tachycardia, insomnia. Physical Exam Const alert and oriented x3 Constitutional Narrative: She is anxious and talking very fast. She is not listening and not making good eye contact. She can not stay on topic. General Appearance: cooperative HEENT moist oral mucous membranes Resp normal respiratory effort, no use of accessory muscles and clear to auscultation bilaterally Resp Narrative: Not tachypneic and no conversational dyspnea. Cardio regular rate, regular rhythm, S1 normal heart sound, S2 normal heart sound, no murmurs, no rub and no gallops GI normal to inspection, nondistended, normoactive bowel sounds and non-tender GI Narrative: No guarding with palpation. She suddenly became nauseated and then vomited. She kept apologizing and she said she felt mortified. Extremity Extremity Narrative: Negative Remy's and Luis's signs Skin Skin Narrative: No rashes, no skin breakdown. Psych Psych Narrative: agitated and anxious. Assessment & Plan Assessment/Plan (1) Debility: (2) Intraparenchymal hemorrhage of brain: (3) History of craniotomy: (4) Traumatic brain injury: QUALIFIERS: Encounter type: subsequent encounter (5) Attention deficit disorder (ADD) in adult: (6) Granulocytopenia: (7) Anxiety: PLAN: 1. We discussed the anxiety. She stated that she has been anxious for many years and she has had panic attacks in the past. She tells me that she has always been able to control it but, I reminded her that she now has a TBI a nd things are different. I recommended we try something non-addictive to chronically control anxiety. She would rather try a non-addictive medication first. We settled on Buspar and will start at a low dose of 5 mg BID. 2. Continue therapy. 3. DC date is scheduled for Friday. Plan is to DC home with OP PT. 4. She will need to follow up with the neurosurgeon. 5. Parlodel can cause nausea......will query her once again why she is on Parlodel Visit Charges Inpatient E&M: 44947 Subs Hosp L2
--- NOTE | 2021-01-22 11:25 | CASEMGMT ---
Team meeting held today with pt present. Pt is receiving PT/OT/ST and progressing with therapy. Pt plans to return home at time of discharge. Insurance to be updated on 01/23 and continued stay is not guaranteed. With continue with treatment plan at this time and reteam next week. LESA Flores
[2021-01-22 19:21] VITALS: BP 104/67; PULSE 74; RESP 16; TEMP 36.6; O2SAT 99
[2021-01-22 20:55] VITALS: PULSE 74; RESP 16; O2SAT 99
[2021-01-22] MEDS: MELATONIN 3 MG TABLET 6 MG PO (20:56)
[2021-01-22] MEDS: busPIRone 5 MG Tablet PO (20:56)
[2021-01-22] MEDS: Senna/Docusate Sodium 1 Tablet 2 TABLET PO (20:57)
--- NOTE | 2021-01-22 21:11 | NURSING ---
pt complained of rt parietal head pain and as she was blinking her eyes, pt complained of some sommer vision. BP taken and was 123/70, HR 63, BS- 103. Pupils -VALERIE. Pt had been talking/dwelling on new med, Buspar and perseverated on taking this med before bedtime. As pt saw was reassured that all conditions were WNL, pt stated the head pain had dissolved. Pt walked to br with normal gait was normal.
[2021-01-22 21:15] LABS: Bedside Glucose 103 mg/dL (70-110)
[2021-01-23] MEDS: Heparin Injection (Vial) 5,000 UNIT/ML VIAL 5000 UNIT SC ×3 (07:19→21:41)
[2021-01-23] MEDS: Chlorhexidine 480 ML 15 ML PO ×2 (08:04→21:42)
[2021-01-23] MEDS: ATOMOXETINE HCL 10 MG CAPSULE PO (08:05)
[2021-01-23] MEDS: Multivitamins,Ther W-Minerals Tablet 1 TABLET PO (08:05)
[2021-01-23] MEDS: busPIRone 5 MG Tablet PO ×2 (08:05→21:41)
[2021-01-23] MEDS: Senna/Docusate Sodium 1 Tablet 2 TABLET PO ×2 (08:05→21:42)
[2021-01-23] MEDS: Thiamine Hydrochloride 100 MG Tablet PO (08:06)
[2021-01-23 08:13] VITALS: BP 128/63; PULSE 66; RESP 16; TEMP 36.6; O2SAT 99
--- NOTE | 2021-01-23 10:02 | NURSING ---
had small emesis while working with occupational therapy. given camille liz and will monitor.
[2021-01-23 19:15] VITALS: BP 118/61; PULSE 80; RESP 16; TEMP 36.9; O2SAT 99
[2021-01-23 20:32] VITALS: PULSE 68; RESP 16; O2SAT 99
[2021-01-23] MEDS: MELATONIN 3 MG TABLET 6 MG PO (21:41)
[2021-01-24] MEDS: Heparin Injection (Vial) 5,000 UNIT/ML VIAL 5000 UNIT SC ×3 (05:29→21:49)
[2021-01-24 07:33] VITALS: BP 139/57; PULSE 73; RESP 16; TEMP 36.4; O2SAT 97
[2021-01-24] MEDS: Senna/Docusate Sodium 1 Tablet 2 TABLET PO ×2 (08:25→21:51)
[2021-01-24] MEDS: busPIRone 5 MG Tablet PO ×2 (08:25→21:50)
[2021-01-24] MEDS: ATOMOXETINE HCL 10 MG CAPSULE PO (08:25)
[2021-01-24] MEDS: Chlorhexidine 480 ML 15 ML PO ×2 (08:25→21:48)
--- NOTE | 2021-01-24 15:27 | CASEMGMT ---
Social Work Insurance has issued a Last Covered Day of 01/25/21 with discharge planned for 01/26/21. JAZ met with pt and discussed this and pt is agreeable to discharge on Friday. Pt plans to go home alone and does not have concerns with this. Pt and therapy have discussed further plans and are agreeable that pt would benefit from outpatient therapy. Pt stating she does have transportation issues. SW informed pt that [facility] van is available if pt chooses [facility] and pt is agreeable to this. Pt denies any further needs and states her son and friends have offered to assist if needed. Referral made to [facility] for outpatient PT/OT/ST and informed them pt will need hosptial van transportation. [facility] to contact Van and arrange for appointments and will contact pt directly. No further d/c needs at this time. Plan: Home alone on Friday01/26/21. Outpatient PT/OT/ST LESA Flores
--- NOTE | 2021-01-24 16:46 | PN_ITS ---
Progress Note Afebrile VSS-blood pressure is within normal limits. Maintaining appropriate oxygen saturation on RA Oral intake is adequate adequate Discussed with nursing - no problems that need addressed Reviewed the PT/OT/ST notes Medication list reviewed. No adverse effects with the Straterra or Buspar. No vomiting since Friday AM She tells me that she saw a dark shadow with a shirt on standing beside her bed when she woke up to go to the BR last night. She wonders if it may have been a ghost. I explained to her than it was more than likely a hypnogogic hallucination and she knows what that is. She still maintains that she is not an alcoholic and plans on having some alcoholic drinks going forward but, not to excess. I explained to her that things have changed and now she has suffered a severe TBI and drinking is not advised. She denies calf pain, CP, SOB, N/V/abd pain. Good bowel function with the senna. Physical Exam Narrative She is calm and making good eye contact with me. She is able to stay on topic and is focusing on what I am saying better. Resp normal respiratory effort and clear to auscultation bilaterally Cardio regular rate, regular rhythm and no gallops GI soft to palpation, non-tender, non-distended and no masses Extremity no calf tenderness and no pedal edema Skin General Skin Exam: no breakdown Rashes: no rashes Assessment & Plan Assessment/Plan (1) Debility: PLAN: doing very well in PT/OT. Still having trouble with memory and executive functioning with ST. Son Will will be available post DC to help set up her medications and manage finances. Will need continued ST at DC. (2) History of recent fall: PLAN: While intoxicated with a blood alcohol level of 270 at arrival to the ED. (3) Traumatic brain injury: QUALIFIERS: Encounter type: subsequent encounter PLAN: persistent cognitive dysfunction (4) Skull fracture with cerebral contusion: QUALIFIERS: Encounter type: subsequent encounter (5) History of craniotomy: PLAN: the incision is healing well and there is no dehiscence of the wound and no erythema or purulent DC (6) Granulocytopenia: PLAN: Why? This will need to be evaluated as an OP if it persists. No sign infection. CT disease? SLE? Leukemia? (7) Anxiety: PLAN: Continue the Buspar. Will plan on discharging on Strattera and Buspar. I recommended to her that she follow up with Yris Mcgovern from the [facility]. Her insurance does not pay for mental Health counselling.......Perhaps she could go to [facility] for alcohol abuse and they will also do counselling with her. (8) Attention deficit disorder (ADD) in adult: PLAN: She is resistant to increasing the dose of the Strattera. I suggested to her that it may help her focus better and maintain concentration. She would like to continue the same dose for a few weeks after DC and if no adverse effects she would consider increasing the dose to 20 mg which is still a very low dose. (9) Family history of bipolar disorder: (10) Hypertension: PLAN: controlled (11) Alcohol dependence: PLAN: She is in denial about her drinking. She was describing a beer to one of the nurses in great detail.....the cool mountains on the bottle, the bubbly good taste, etc. I am fearful that if she does not admit she has a problem and go to a program for substance abuse she will get back to drinking daily and with the TBI she is at increased risk for falls and poor decision making. Visit Charges Inpatient E&M: 71111 Subs Hosp L2
[2021-01-24 19:17] VITALS: BP 144/77; PULSE 71; RESP 16; TEMP 36.7; O2SAT 95
[2021-01-24 20:05] VITALS: PULSE 71; RESP 17
[2021-01-24] MEDS: MELATONIN 3 MG TABLET 6 MG PO (21:49)
[2021-01-24 22:06] VITALS: BMI 27.1
[2021-01-25] MEDS: Heparin Injection (Vial) 5,000 UNIT/ML VIAL 5000 UNIT SC ×3 (06:39→20:17)
[2021-01-25 07:11] VITALS: BP 110/77; PULSE 66; RESP 16; TEMP 36.5; O2SAT 98
[2021-01-25] MEDS: ATOMOXETINE HCL 10 MG CAPSULE PO (08:12)
[2021-01-25] MEDS: Chlorhexidine 480 ML 15 ML PO ×2 (08:12→20:15)
[2021-01-25] MEDS: busPIRone 5 MG Tablet PO ×2 (08:13→20:17)
[2021-01-25] MEDS: Senna/Docusate Sodium 1 Tablet 2 TABLET PO ×2 (08:13→20:15)
--- NOTE | 2021-01-25 12:37 | CASEMGMT ---
Social Work SW met w/pt in room in regard to discharge plan, let her know that JAZ Best did send orders over to [facility] for PT/OT/[facility] and that they will call her to let her know when the appointments are, they are also working on setting up transportation. Pt states understanding. SW then spoke w/pt both about mental health and history of alcohol use. Pt confirms that she struggles with anxiety, but not depression. Pt states she was diagnosed a long time ago with depression when an corporate administrator took her inheritance and invested it poorly. She states Dr. Marquez at that time diagnosed her w/depression and put her on medication. She states she did not like how the medication made her feel however as it made her have vivid dreams. Pt states she was seeing someone at [facility] for therapy, and liked her very much. She states they do not take her insurance she does not think however, and it's $100/session. SW spoke w/her about other options in the area, and gave pt a list of counseling agencies nearby--including [facility], [facility] and [facility]. Pt states she used to work for [employer] when it was [employer], she would not want to go there however as a client. She states she has not heard good things about [facility]. She may consider [facility]. SW offered to call to make an appointment for pt, she declined and states will do it on her own. SW spoke w/pt about alcohol use. Pt states she has abused alcohol, but is not an alcoholic. She states she did not start drinking until later in life. She states she doesn't need to drink every day, and doesn't need to drink. She states her son says that this is what every alcoholic says, however pt states again she is not an alcoholic. Pt plans to not drink when she goes home, she does explain to SW that it could cause seizures after having had a brain injury, and she doesn't want seizures. She states she had initially texted her boyfriend Timo that they could have a beer together on the back deck when she got home, but then she texted him again and said that she is not going to have a beer right now. She states Timo drinks beer, and he is welcome to have a beer on her deck, but she is not going to have one with him. JAZ asked pt about counseling specifically around her alcohol use, and/or AA. Pt states has never had counseling for this or been to AA, and does not plan to go to AA now either. SW did give her information on [facility], encouraged her to call should she go home and have a more difficult time than she is anticipating in abstaining from drinking. SW also again encouraged pt to follow up with one of the counseling agencies in [place], explained to her also that she can speak w/her counselor, should she decide to return to counseling, about helping her to abstain from alcohol. Pt states understanding. No further social service needs at this time. Resources given for counseling both for mental health and alcohol cessation. At this time pt states she will follow up w/mental health counseling, and does not have a need for counseling or support in regard to abstaining from drinking. JIM Cadet
[2021-01-25 15:10] LABS: Absolute Neutrophil Count 1.3 X10^3/uL (2.0-7.7); Basophil# 0.01 X10^3/uL; Basophil% 0.3 % (0-1); Eosinophil# 0.02 X10^3/uL; Eosinophils% 0.7 % (0-5); Hematocrit 41.8 % (37-47); Hemoglobin 13.5 g/dL (12.0-15.0); Lymphocyte % 45.5 % (19-41); Mean Corp Hgb Conc 32.3 g/dL (32-36); Mean Corpuscular Volume 89.7 fL (81-99); Mean Platelet Vol. 9.9 fl (6.2-12.0); Monocyte# 0.24 X10^3/uL; Monocyte% 8.4 % (0-10); NRBC Flagged by Analyzer 0 % (0-5); Neutrophil # 1.29 X10^3/uL (2.7-7.7); Neutrophil % 45.1 % (47-70); Platelet Count 213 K/mm3 (150-450); RBC Distribution Width CV 12.9 % (11.6-14.6); RBC Distribution Width SD 42.4 fl (35.1-43.9); Red Blood Count 4.66 M/mm3 (4.2-5.4); White Blood Count 2.9 K/mm3 (4.4-11.0)
[2021-01-25 15:36] LABS: Anion Gap 5 (5-15); BUN 19 mg/dL (7-18); BUN/Creat Ratio 26.2 RATIO (10-20); Calcium,Total 8.7 mg/dL (8.5-10.1); Chloride 105 mmol/L (98-107); Creatinine, Serum 0.73 mg/dL (0.55-1.02); EST Glomerular Filtration Rate 86 mL/min (>60); Est Glom Filt Rate - Afr Amer 104 mL/min (>60); Estimated Creatinine Clearance 76.33 ml/min; Glucose 103 mg/dL (74-106); Potassium 4.4 mmol/L (3.5-5.1); Sodium Level 137 mmol/L (136-145)
[2021-01-25 19:34] VITALS: BP 124/67; PULSE 85; RESP 14; TEMP 36.4; O2SAT 98
[2021-01-25] MEDS: MELATONIN 3 MG TABLET 6 MG PO (20:17)
[2021-01-26] MEDS: Heparin Injection (Vial) 5,000 UNIT/ML VIAL 5000 UNIT SC (06:10)
[2021-01-26] MEDS: busPIRone 5 MG Tablet PO (06:11)
[2021-01-26 07:54] VITALS: BP 103/81; PULSE 75; RESP 16; TEMP 36.8; O2SAT 99
[2021-01-26] MEDS: ATOMOXETINE HCL 10 MG CAPSULE PO (08:00)
[2021-01-26] MEDS: Chlorhexidine 480 ML 15 ML PO (08:01)
[2021-01-26 10:38] VITALS: BP 103/81; PULSE 75; RESP 16; TEMP 36.8; O2SAT 99
--- NOTE | 2021-01-26 10:40 | PCM.DC ---
Discharge Instructions Diet Discharge Diet: No restrictions Activity Discharge Activity: May Not Drive (may not drive until released by the neurosurgeon. ) and May Shower May resume sexual activity in: No Restrictions Weight Bearing Status: Full weight bearing Lifting Restrictions: no more than 5-10 pounds Dressing / Incision Call your doctor if your incision/area has: Continuous Slow Oozing, Sudden Increased Bleeding, Increased Pain/ Swelling, Increased Redness and Foul Smelling Discharge Call your doctor if you observe: Fever of 101 or Higher, Shortness of breath, Fainting spells, Swelling in the ankles, Chest pain, Calf discomfort and Uncontrolled pain Suture Line Care: Avoid Pulling/Pushing and Avoid Pinching/Bending Cleanse incision/area with: Soap & Water Follow Up Care Please Follow Up With: Makayla Hunt NP Test Results: Test results from this visit will be discussed in further detail at your follow-up appointment, if applicable. Pending Tests Upon Discharge: none Discharge Plan Admission Admit Date/Time: 01/03/21 14:20 Primary Reason for Your Visit: Debility due to fall resulting in Epidural hematoma/craniectomy and TBI Attending Provider: Dena Wall Primary Care Provider: Jamie Collins Instructions Patient Instructions: Alcoholism and Family History, TBI Improve Sleep, Depression and TBI, Anxiety and Traumatic Brain Injury, Alcoholism: Myths and Facts, Alcohol Addiction, Addiction Ask These Questions Additional Instructions / Restrictions: 1. Outpatient PT/OT/ST at [facility] 2. You have worked hard in rehab [facility] and I have seen so much progress since you were admitted. It may be a good idea to reflect on what lead to the fall and what adjustments you have been making to prevent this from happening again. 3. You have been able to focus better since the Strattera but, you are on a very low dose and there is still some work to do on focusing, listening and working to complete tasks with higher function required........like managing medications and finances and possibly getting back to work. Finish the prescription you have for Strattera (10 mg a day) and consider increasing the dose to 20 mg which is still a low dose. 4. Your white blood cell count has been decreased/low since you were admitted to rehab. I would suggest your PCP recheck a blood count in a few weeks and if the white blood cell count is still low I would see a painter hand. 5. It has been a pleasure getting to know you. I think you will do fine at home. If you have any questions after you leave please do not hesitate to call me. Office [phone] Discharge Orders/Prescriptions Prescriptions: New atomoxetine [Strattera] 10 mg capsule 10 mg PO DAILY Qty: 14 RF: 0 buspirone 5 mg Tablet 5 mg PO TID Qty: 90 RF: 0 acetaminophen [Tylenol] 325 mg Tablet 650 mg PO Q6H PRN PRN (Reason: Pain 1-10 Or Fever) Qty: 1 RF: 0 atomoxetine [Strattera] 10 mg Capsule 20 mg PO DAILY@0800 Qty: 60 RF: 0 melatonin 3 mg Tablet 6 mg PO QHS Qty: 60 RF: 0 Continued vitamin [id number] 1 EACH tablet 1 ea PO DAILY RF: 0 methylsulfonylmethane 1,000 MG capsule 1,000 mg PO DAILY RF: 0 ascorbic acid (vitamin C) 1,000 MG tablet 1,000 mg PO DAILY RF: 0 magnesium oxide 400 MG tablet 400 mg PO DAILY RF: 0 ferrous sulfate 325 MG tablet 325 mg PO DAILY RF: 0 malic acid (bulk) 500 GM powder 500 gm MC DAILY RF: 0 biotin 1,000 MCG tablet,chewable 1,000 mcg PO DAILY RF: 0 Discontinued lisinopril 2.5 MG tablet 2.5 tab PO DAILY RF: 0 lorazepam 0.5 MG tablet 0.5 mg PO DAILY PRN (Reason: Anxiety) RF: 0 Referrals / Follow Up: Jamie Collins MD [Primary Care Provider] - Disposition Disposition (needs filled in before D/C Order can be placed): Home, Self Care
--- NOTE | 2021-01-26 10:57 | DS.PCM_ITS ---
Providers Date of Admission: 01/03/21 Primary Care Physician: Dr. Jamie Collins MD Reason For Visit: TBI Diagnosis Discharge Diagnosis (1) Debility: Status: Acute Code(s): R53.81 - Other malaise (2) History of recent fall: Status: Acute Code(s): Z91.81 - History of falling (3) Traumatic brain injury: Status: Acute Code(s): S06.9X9A - Unspecified intracranial injury with loss of consciousness of unspecified duration, initial encounter Qualifiers: Encounter type: subsequent encounter (4) Skull fracture with cerebral contusion: Status: Acute Code(s): S02.91XA - Unspecified fracture of skull, initial encounter for closed fracture; S06.339A - Contusion and laceration of cerebrum, unspecified, with loss of consciousness of unspecified duration, initial encounter Qualifiers: Encounter type: subsequent encounter (5) History of craniotomy: Status: Acute Code(s): Z98.890 - Other specified postprocedural states (6) Granulocytopenia: Status: Acute Code(s): D70.9 - Neutropenia, unspecified (7) Anxiety: Status: Acute Code(s): F41.9 - Anxiety disorder, unspecified (8) Attention deficit disorder (ADD) in adult: Status: Acute Code(s): F98.8 - Other specified behavioral and emotional disorders with onset usually occurring in childhood and adolescence (9) Family history of bipolar disorder: Status: Acute Code(s): Z81.8 - Family history of other mental and behavioral disorders (10) Hypertension: Status: Chronic Code(s): I10 - Essential (primary) hypertension (11) Alcohol dependence: Status: Acute Code(s): F10.20 - Alcohol dependence, uncomplicated Plan: Discharge home. OP PT/OT/FINANCE ADMIN at [facility]. F/U with PCP in 5-10 days. Medications at Discharge Home Medications vitamin Z89-rjjlo acid 1 ea PO DAILY 08/27/18 ascorbic acid (vitamin C) 1,000 mg PO DAILY 04/10/20 biotin 1,000 mcg PO DAILY 04/10/20 ferrous sulfate 325 mg PO DAILY 04/10/20 magnesium oxide 400 mg PO DAILY 04/10/20 malic acid (bulk) 500 gm MC DAILY 04/10/20 methylsulfonylmethane 1,000 mg PO DAILY 04/10/20 atomoxetine [Strattera] 10 mg PO DAILY #14 cap 01/15/21 acetaminophen [Tylenol] 650 mg PO Q6H PRN PRN #1 tab 01/26/21 atomoxetine [Strattera] 20 mg PO DAILY@0800 #60 cap 01/26/21 buspirone 5 mg PO TID #90 tab 01/26/21 melatonin 6 mg PO QHS #60 tab 01/26/21 Hospital Course Operations None Procedures - (Removal of PEG tube) Summary of Care Provided Minutes Spent on Discharge: 43 Hospital Course: MARGIE RAMOS, is a 65 YO F with a past medical history of fibromyalgia, anxiety/depression, heavy alcohol use, chronic PRN benzodiazepine use for insomnia (the OARSS was reviewed and she gets #30 every 5 months or so), and HTN who had been drinking at the [employer] and then fell down a flight of stairs losing consciousness for 2-3 minutes. She was found by a friend who she had been drinking with and she was taken to [facility] ED where a CT brain showed an epidural hematoma with a 1 cm shift. The blood alcohol was 270. She was transferred to [facility] from [facility] and taken immediately to the OR for evacuation of the hematoma and placement of an intracranial pressure monitor. The bolt was removed on 12/02/2020. Imaging also showed intraparenchymal hemorrha ge of the R frontal and temporal lobes. She was transferred to [facility] after having a PEG and trach. She was transferred to [facility] acute inpt rehab on 01/03/21 for > 3 H of therapy daily to restore her at or near her prior level of functioning. The trach had been removed at [facility] but, the PEG tube was present at the time of admission to rehab. On PE at the time of admission she was noted to have pressured speech and tangential thinking. She was very restless and fidgety and, somewhat h istrionic. She has a brother who is Bipolar and an alcoholic. She was perseverating on not getting her Lorazepam discontinued. She had flight of ideas and kept coming back to the Lorazepam and how she needs it. She was seen by PT/OT/ST and everyone reported an inability to attend to what is being said to her. Her short term memory was poor and she and her son Will told us this is the way she has always been. She has a son who has ADD and 2 of his 3 children have ADD. She finally agreed to start a very low dose of Strattera and even with the low dose she had better concentration and was able to follow instructions better. She had no adverse side effects. Therapy proceeded well and she improved significantly. Prior to DC she was able to ambulate 900 ft without an assistive device on various surfaces without LOB and at admission she was only able to ambulate 45 ft. She was able to ascend and descend 13 steps in a reciprocal pattern with 1 handrail. She progressed to demonstrate basic self care tasks at an independent level and She was modified independent with toilet and shower transfers. Her diet at DC included regular textures and thin liquids and the PEG tube was discontinued prior to DC. Her speech was 100% intelligible. She had improved insight and awareness of hyper verbosity and tangential speech. She also understood how impulsivity and inattention placed her at increased risk for fall/adverse safety advance. She had improved self monitoring. As we got closer to DC her anxiety level increased. She began to have episodic bouts of nausea and vomiting and when she is anxious she also does not make good eye contact and the tangential thinking and flight of ideas returns. We had a discussion about anxiety/depression and she maintains that she is not depressed but, she has had anxiety and even panic attacks for a long time. She and I agreed that potentially addictive drugs should be avoided. she was agreeable to trying Buspar. We started at 5 mg BID and then increased to 5 mg TID. She had no further episodes of N/V. Brittany was discharged on 01/26/21 in good condition. She had planned on going home and enjoying an ice cold beer but, prior to DC she recognized that alcohol and traumatic brain injuries don't mix and she decided she should not drink. Her insight into what lead to the fall/TBI had significantly improved with therapy and education. She was discharged home and her son Will will be overseeing medications and helping her at home. She will be following up at [facility] for PT/OT/FINANCE ADMIN. She has seen a local counselor for anxiety and depression in the past and she was encouraged to follow up for additional counselling. The also gave her a list of local agencies providing counselling services. She will follow up with Dr. Collins and the neurosurgeon who did the craniotomy post discharge. She was instructed not to drive until released by the neurosurgson. Physical Exam Narrative She is calm and making good eye contact with me. She is able to stay on topic and is focusing on what I am saying better. Const alert, oriented x3 and no apparent distress General Appearance: cooperative HEENT moist oral mucous membranes Eyes PERRL Neck Neck Narrative: the trach site is healing and there is only a very small opening now Resp normal respiratory effort, normal air movement, no use of accessory muscles and clear to auscultation bilaterally Resp Narrative: Not tachypneic and no conversational dyspnea. Effort and Inspection: able to speak in complete sentences and symmetric chest movement Cardio regular rate, regular rhythm, S1 normal heart sound, S2 normal heart sound, no murmurs, no rub and no gallops GI soft to palpation, non-tender, non-distended and no masses Extremity no calf tenderness and no pedal edema Extremity Narrative: Negative Remy's and Luis's signs Skin Skin Narrative: No rashes, no skin breakdown. Neuro oriented x3, CN's II-XII intact bilaterally and moves all extremities Psych denies hallucinations and denies suicidal ideation Medical Records Data Medical Nutrition Assessment Dietitian: Nutrition Therapy Diagnosis Start: 01/22/21 15:19 Freq: Status: Active Protocol: Document 01/22/21 15:20 [facility] (Rec: 01/22/21 15:20 [facility] [id number]) Nutrition Malnutrition Evidence of Malnutrition Exists No Clinical Problem Swallowing Difficulty Etiology r/t TBI and trach Signs/Symptoms as evidenced by altered solid consistency and PEG TF at HS. Status Resolved Problem Recommendation Dietitian Recommendations/Changes Continue regular diet with consistency as per FINANCE ADMIN Provide ONS as needed if intake fails at meals. ONS not needed at this time. Yamel Duvall RDN, LD Weight / BMI Weight Weight: 137 lb 12.623 oz Body Mass Index (BMI) 27.1 ABG / Lab / Microbiology Data Result Diagrams: 01/25/21 14:47 01/25/21 14:47 Laboratory: Laboratory Results - last 24 hr 01/25/21 14:47: Sodium 137, Potassium 4.4, Chloride 105, Carbon Dioxide 27.0, Anion Gap 5, BUN 19 H, Creatinine 0.73, Estim Creat Clear Calc 76.33, Est GFR (MDRD) Af Amer 104, Est GFR (MDRD) Non-Af 86, BUN/Creatinine Ratio 26.2 H, Glucose 103, Calcium 8.7 01/25/21 14:47: WBC 2.9 L, RBC 4.66, Hgb 13.5, Hct 41.8, MCV 89.7, MCH 29.0, MCHC 32.3, RDW Std Deviation 42.4, RDW Coeff of Rhona 12.9, Plt Count 213, MPV 9.9, Immature Gran % (Auto) 0.000, Neut % (Auto) 45.1 L, Lymph % (Auto) 45.5 H, [place] % (Auto) 8.4, Eos % (Auto) 0.7, Baso % (Auto) 0.3, Absolute Neuts (auto) 1.3 L, Absolute Lymphs (auto) 1.30, Nucleated RBC % 0 D/C Instructions Discharge Diet: No restrictions May resume sexual activity in: No Restrictions Weight Bearing Status: Full weight bearing Call your doctor if your incision/area has: Continuous Slow Oozing, Sudden Increased Bleeding, Increased Pain/ Swelling, Increased Redness and Foul Smelling Discharge Call your doctor if you observe: Fever of 101 or Higher, Shortness of breath, Fainting spells, Swelling in the ankles, Chest pain, Calf discomfort and Uncontrolled pain Suture Line Care: Avoid Pulling/Pushing and Avoid Pinching/Bending Cleanse incision/area with: Soap & Water Pending Tests Upon Discharge: none Please Follow Up With: Makayla Older ANIMAL CHIROPRACTOR Meaningful Use Info Meaningful Use Diagnoses (Choose all that apply): None applicable Discharge Plan Admission Admit Date/Time: 01/03/21 14:20 Primary Reason for Your Visit: Debility due to fall resulting in Epidural hematoma/craniectomy and TBI Attending Provider: Dena Wall Primary Care Provider: Jamie Collins Instructions Patient Instructions: Alcoholism and Family History, TBI Improve Sleep, Depression and TBI, Anxiety and Traumatic Brain Injury, Alcoholism: Myths and Facts, Alcohol Addiction, Addiction Ask These Questions Additional Instructions / Restrictions: 1. Outpatient PT/OT/ST at [facility] 2. You have worked hard in rehab [facility] and I have seen so much progress since you were admitted. It may be a good idea to reflect on what lead to the fall and what adjustments you have been making to prevent this from happening again. 3. You have been able to focus better since the Strattera but, you are on a very low dose and there is still some work to do on focusing, listening and working to complete tasks with higher function required........like managing medications and finances and possibly getting back to work. Finish the prescription you have for Strattera (10 mg a day) and consider increasing the do se to 20 mg which is still a low dose. 4. Your white blood cell count has been decreased/low since you were admitted to rehab. I would suggest your PCP recheck a blood count in a few weeks and if the white blood cell count is still low I would see a retail support manager. 5. It has been a pleasure getting to know you. I think you will do fine at home. If you have any questions after you leave please do not hesitate to call me. Office [phone] Discharge Orders/Prescriptions Prescriptions: New atomoxetine [Strattera] 10 mg capsule 10 mg PO DAILY Qty: 14 RF: 0 buspirone 5 mg Tablet 5 mg PO TID Qty: 90 RF: 0 acetaminophen [Tylenol] 325 mg Tablet 650 mg PO Q6H PRN PRN (Reason: Pain 1-10 Or Fever) Qty: 1 RF: 0 atomoxetine [Strattera] 10 mg Capsule 20 mg PO DAILY@0800 Qty: 60 RF: 0 melatonin 3 mg Tablet 6 mg PO QHS Qty: 60 RF: 0 Continued vitamin G33-haxeb acid 1 EACH tablet 1 ea PO DAILY RF: 0 methylsulfonylmethane 1,000 MG capsule 1,000 mg PO DAILY RF: 0 ascorbic acid (vitamin C) 1,000 MG tablet 1,000 mg PO DAILY RF: 0 magnesium oxide 400 MG tablet 400 mg PO DAILY RF: 0 ferrous sulfate 325 MG tablet 325 mg PO DAILY RF: 0 malic acid (bulk) 500 GM powder 500 gm MC DAILY RF: 0 biotin 1,000 MCG tablet,chewable 1,000 mcg PO DAILY RF: 0 Discontinued lisinopril 2.5 MG tablet 2.5 tab PO DAILY RF: 0 lorazepam 0.5 MG tablet 0.5 mg PO DAILY PRN (Reason: Anxiety) RF: 0 Referrals / Follow Up: Jamie Collins MD [Primary Care Provider] - Disposition Disposition (needs filled in before D/C Order can be placed): Home, Self Care Charges/Coding Visit Charges Inpatient E&M: [id number] Disch Hosp
--- NOTE | 2021-01-26 13:18 | NURSING ---
discharged home with son. discharge instructions, medication and appointments reviewed with pt and son, denies questions or concerns.
== END 2021-01-26 13:20 | disposition home or self-care (01) | DRG 862 ==
PROVIDERS: Admitting Provider Internal Medicine; PCP Internal Medicine; Visit Provider Internal Medicine
DX: S02.91XD Unspecified fracture of skull, subsequent encounter for fracture with routine healing (principal); S06.34 Traumatic hemorrhage of right cerebrum; W10.9XXD Fall (on) (from) unspecified stairs and steps, subsequent encounter; F31.30 Bipolar disorder, current episode depressed, mild or moderate severity, unspecified; F41.0 Panic disorder [episodic paroxysmal anxiety]; I10 Essential (primary) hypertension; M79.7 Fibromyalgia; K21.9 Gastro-esophageal reflux disease without esophagitis; R13.12 Dysphagia, oropharyngeal phase; Z79.899 Other long term (current) drug therapy; Z87.891 Personal history of nicotine dependence; Z93.1 Gastrostomy status; F10.20 Alcohol dependence, uncomplicated; B37.0 Candidal stomatitis; F98.8 Other specified behavioral and emotional disorders with onset usually occurring in childhood and adolescence; D70.9 Neutropenia, unspecified
CPT/HCPCS: 36415; 74230; 80048; 80053; 82962; 83735; 84100; 85025; 92507; 92523; 92526; 92610; 92611; 96125; 97110; 97112; 97116; 97129; 97130; 97162; 97166; 97530; 97535; 97760; 97802; 97803; 99251; G0463

== ENCOUNTER 2021-03-02 14:30 | Outpatient (RCR) | payer MEDICARE, MEDICAID, SELFPAY ==
--- NOTE | 2021-02-05 15:18 | HP.PTEVAL_ITS ---
Patient's Visit Information MARGIE RAMOS is a 65 year old F referred to Physical Therapy by Dr. Dena Wall DO with a diagnosis of TBI. Date of Evaluation: 02/05/21 Physical Therapist: David Kilpatrick, DPT, OCS, CSCS - Visit Plan Plan: No skilled intervention desired or necessary at this point. Pt feels omcfortable getting slowly back to walking program at home and normal activities. - Subjective Fell down stairs at [employer] 11/20 and hit head on floor. Not sure why she fell as she cannot remember but she did say she had been drinking adn that could be part of the problem. Hit head on floor. Unconscious and went to hospital via squad. Threw up 2x. Life flighted to [facility]. Induced coma for three weeks.Cut a hole in side of head to relieve SDH x 2. Had operation fairly quickly. Home from rehab 01/26 21. Was unable to walk going in and had weak L leg. Saw surgeon last week and said she is doing well. Now is walking fine but not back up to two miles per day [place] [employer]. Gets winded and tired now on short path. Used to walk dog. Balance feels OK btu L leg feels weak and may list to the left. No cane or walker needed anymore. Has steps at home but does not need to use them as son helps with laundry. Bed moved down to dining room. Has to be careful with dog on steps. Basic ADLs are getting done, bathroom, cooking and dressing I. Shower is upstairs and has not done that. Lives alone with little dog. Not employed. - Objective Walks I even typing on phone while walking. trasnfers I bed adn chair without UE. Stairs reciprocally without rail today but recommended use rail at home. LE patella adn achilles reflexes 2/3. Sensation LE WNl to gross light touch. Strength 4/5 in hips and knees and ankles with AROM WFL. coordination to reciprocal toe and heel tap is good. Flexibility is WFL in LE. UE aROM WFL adn strenth 4/5 except L ER which is 4-. - Balance/Special Test Scores Functional Gait Assessment Score: 30 % Disability: 0 - Rehabilitation Potential Physical Therapy Diagnosis: TBI - Anticipated Interventions Thank you for the opportunity to evaluate your patient. For Medicare and Medicare O plans, please review the plan of care and approve it. It will need to be FAXED BACK to us at [phone] for Medicare purposes. For Medicare only, by signing this I certify the plan of care. Please let me know if there are questions or concerns regarding this plan of care. Physician Signature: Date:
--- NOTE | 2021-02-14 11:24 | HP.SP.AD_ITS ---
History - History Date of Eval: 02/09/21 Date of Onset of Diagnosis: November 20, 2020 Previous speech therapy: Yes Other Relevant Medical History/Diagnoses/Surgery: Patient fell back for 4-5 steps, taken to ER then life flighted to [facility]. Induced coma for three weeks. Patient had pneumonia during the hospitalization. [facility]. January 03 [facility] to [facility] until Discharge on January 26. Surgery to relieve SDH x 2. 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 Linguistic skills were evaluated using patient/family interview, skilled observation and informal evaluation through tasks completed by the patient. - Orientation Orientation: Person, Place, Birthdate, Medical Diagnosis - Problem Solving Simple: WNL Complex: WNL - Judgement & Reasoning Judgement/Reasoning: WNL CLQT - CLQT CLQT Administered: Yes CLQT: Cognitive Linguistic Quick Test (CLQT) is a criterion - referenced assessment designed for adults between the ages of 18 and 89 with known or suspected neurological dysfuntions. The CLQT is to assess strength and weaknesses in five cognitive domains. Severity ratings are within normal limits, mild, moderate, severe deficits. The subtests are as follows: Date: 02/14/21 - Attention Attention: WNL - Memory Memory: WNL - Executive Functions Executive Functions: WNL - Visuospatial Skills Visuospatial Skills: WNL - Clock Drawing Severity Rating Clock Drawing Severity Rating: WNL - CLQT Comments Analysis Mago did very well with all tasks. She stated that she has no deficits at home at this time. All tasks were completed easily and without difficulty. Plan - Plan Plan: No further treated warranted at this time. Patient reported being back to baseline. - Recommendations Treatment Warranted: No Education - Patient has Indicated that the Following Identified Educational Needs: None The Patient has indicated that they have no educational or learning abilities that may effect their care.: Yes - Patient Instruction Patient Education: Diagnosis Person Taught: Patient Teaching Method: Discussion Response to teaching: Verbalize understanding
--- NOTE | 2021-02-16 10:42 | HP.OTEVAL_ITS ---
Patient's Visit Information MARGIE RAMOS is a 65 year old F, referred to Occupational Therapy by Dr. Jamie Collins MD, with a diagnosis of TBI- left side affected. Date of Evaluation: 02/14/21 Occupational Therapist: Ekta Schreiber, OTR/L, CHT - Subjective This 65/F was seen for initial OT eval after sustaining a TBI from falling down 5 stairs at the [employer]. She stated that she had been drinking, but she believes that she tried to reach for the railing and tripped over the step with her left foot. She was life flighted to [facility] and was in an induced coma for 3 weeks. She a large subdural hematoma on her R side, a small one on her L side, and a craniotomy on the R side. She was then transferred to [facility] and was discharged home January 26. 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 She lives alone with 3 cats and a small dog, but she has a friend who visits her almost everyday to check on her. Her son moved her bed to the first floor and she tries to navigate the stairs to the second level at least once a day going very slow and very carefully. Her ADLs and IADLs are going well, and she has noticed a lot of things returning since she went home. She took a shower for the first time this past Friday and was very, very careful stating that it went well. She has been cooking and cleaning independently, but gets tired often and needs to take breaks. She stated her L shoulder is painful sometimes, and if she rolls on it, it hurts in the morning when she wakes up. Her goal is to be able to walk 2 miles a day again with her friend and to be able to not be nervous to navigate the stairs. Pt stated that she was diagnosed with Fibromyalgia in 1999. - Pain L shoulder 0 Pain Intensity Range: 5 R side head 2 Pain Intensity Range: 3, 4 - ROM Shoulder: R: WFL L:WFL Elbow: R: WFL L:WFL Forearm: R:WFL L:WFL Wrist: R: WFL L:WFL Opposition: 10 ROM Comments: 2/10 pain with L shoulder flexion. - Strength Shoulder: R: flexion 4/5 abd 4/5. L: flexion 4-/5 abd 3+/5 Elbow: R: biceps 4+/5 Triceps 4+/5. L: biceps 4+/5, triceps 4+/5 Director Of Anesthesia Services: R: 35# L: 33# Lateral Pinch: R: 10#, L: 10# Tripod Pinch: R: 10#, L: 10# Tip-to-Tip Pinch: R: 8#, L: 6# - Nine Hole Peg Right: 25.97 Left: 27.00 - Quick DASH-Disab of Arm,Shoulder& Hand Quick DASH Score: 31.8175 - Goals Goal:: pt will demonstrate an increase in L sh MMT to 4+/5 to return to PLOF by d/c. pt will demonstrate an increase in L career and technology education teacher strength by at least 10# to return to PLOF by d/c. Goal:: Pt will self-report a decrease in L shoulder pain to no greater than 1/10 with use and movement by d/c. - Rehabilitation General Assessment: Pt demonstrated a decrease in L shoulder strength, and a decrease in L career and technology education teacher strength. Pt would benefit from skilled OT services 1-2x a week for 4-5 weeks to increase her shoulder strength and career and technology education teacher strength. Today, therapist educated pt on L shoulder isometrics for a HEP. Pt agreed and understood POC. Therapy session was directly supervised and doc. approved by Ekta GUSMAN/Andrew,CHT Rehabilitation Potential: Good - Anticipated Interventions A/AAROM/PROM, Joint Protection/Energy Conservation, Neuro Reeducation, Home Program - Visit Plan Frequency: 1-2x /Week Duration: 4-6 Weeks General Plan: shoulder isometrics. if pain decreases, begin BTE program for shoulder and career and technology education teacher strength. TEXT: Thank you for the opportunity to evaluate your patient. For Medicare and Medicare HMO plans, please review the plan of care and approve it. It will need to be FAXED BACK to us at [phone] for Medicare purposes. Please let me know if there are questions or concerns regarding this plan of care. Physician Signature: Date:
== END 2021-03-02 19:00 | disposition home or self-care (01) ==
LOC: OT 14:30
PROVIDERS: PCP Internal Medicine; Referring Provider Internal Medicine; Visit Provider Internal Medicine
DX: S06.9X0D Unspecified intracranial injury without loss of consciousness, subsequent encounter (principal); R47.89 Other speech disturbances
CPT/HCPCS: 92507; 97110; 97162; 97165

== ENCOUNTER 2021-03-17 17:38 | Emergency (ER) | payer MEDICARE, MEDICAID, SELFPAY ==
[2021-03-17 17:39] VITALS: BP 131/82; PULSE 92; RESP 16; TEMP 36.9; O2SAT 97; BMI 27.0
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
[2021-03-17 21:17] VITALS: BP 151/68; PULSE 76; RESP 14; O2SAT 100
[2021-03-17 22:19] VITALS: BP 142/68; PULSE 78; RESP 14; O2SAT 100
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
[2021-03-18 00:56] VITALS: BP 165/85; PULSE 76; RESP 15; O2SAT 99
[2021-03-18 01:38] VITALS: PULSE 78; RESP 16; O2SAT 99
== END 2021-03-18 01:39 | disposition home or self-care (01) ==
PROVIDERS: Emergency Provider Emergency Medicine; PCP Internal Medicine
DX: S16.1XXA Strain of muscle, fascia and tendon at neck level, initial encounter (principal); S60.211A Contusion of right wrist, initial encounter; V89.0XXA Person injured in unspecified motor-vehicle accident, nontraffic, initial encounter; Y93.89 Activity, other specified; Y92.9 Unspecified place or not applicable; Y99.9 Unspecified external cause status; I10 Essential (primary) hypertension; K21.9 Gastro-esophageal reflux disease without esophagitis; M79.7 Fibromyalgia; F41.9 Anxiety disorder, unspecified; F10.20 Alcohol dependence, uncomplicated; Y90.9 Presence of alcohol in blood, level not specified; Z79.899 Other long term (current) drug therapy; Z87.891 Personal history of nicotine dependence
CPT/HCPCS: 70450; 72040; 73110; 99284

== ENCOUNTER → 2021-06-12 22:13 | Outpatient (CLI) | payer MEDICARE, MEDICAID, SELFPAY | PROVIDERS: PCP Internal Medicine; Visit Provider Registered Nurse | DX: G47.33 Obstructive sleep apnea (adult) (pediatric) (principal) | CPT/HCPCS: 95811 ==

== ENCOUNTER 2021-10-14 01:23 | Emergency (ER) | payer MEDICARE, MEDICAID, SELFPAY ==
[2021-10-14 01:24] VITALS: BP 157/90; PULSE 83; RESP 15; TEMP 36.4; O2SAT 98; BMI 32.5
[2021-10-14 01:28] VITALS: BP 136/71
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
[2021-10-14 01:56] VITALS: BP 136/72
[2021-10-14 01:57] VITALS: BP 140/78
== END 2021-10-14 02:22 | disposition home or self-care (01) ==
LOC: ED 01:55
PROVIDERS: Emergency Provider Emergency Medicine; PCP Internal Medicine; Visit Provider Emergency Medicine
DX: I10 Essential (primary) hypertension (principal); F10.20 Alcohol dependence, uncomplicated; Y90.9 Presence of alcohol in blood, level not specified; F41.9 Anxiety disorder, unspecified; F32.A Depression, unspecified; M79.7 Fibromyalgia; Z79.899 Other long term (current) drug therapy; Z87.891 Personal history of nicotine dependence
CPT/HCPCS: 99282

== ENCOUNTER 2021-10-14 14:21 | Emergency (ER) | payer MEDICARE, MEDICAID, SELFPAY ==
[2021-10-14 14:22] VITALS: BP 164/91; PULSE 71; RESP 14; TEMP 36.9; O2SAT 99; BMI 33.3
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
[2021-10-14 15:55] VITALS: BP 173/92
[2021-10-14 16:07] VITALS: BP 185/89
[2021-10-14 16:50] VITALS: BP 164/79
== END 2021-10-14 16:58 | disposition home or self-care (01) ==
PROVIDERS: Emergency Provider Student in an Organized Health Care Education/Training Program; PCP Internal Medicine; Visit Provider Student in an Organized Health Care Education/Training Program
DX: I10 Essential (primary) hypertension (principal); F10.20 Alcohol dependence, uncomplicated; Y90.9 Presence of alcohol in blood, level not specified; F41.9 Anxiety disorder, unspecified; M79.7 Fibromyalgia; Z79.899 Other long term (current) drug therapy; Z87.891 Personal history of nicotine dependence

== ENCOUNTER 2021-11-01 01:54 | Emergency (ER) | payer MEDICARE, MEDICAID, SELFPAY ==
[2021-11-01 01:55] VITALS: BP 133/81; PULSE 86; RESP 16; TEMP 35.9; O2SAT 98; BMI 32.9
--- NOTE | 2021-11-01 02:18 | CT_ITS ---
STUDY: CT BRAIN WITHOUT CONTRAST REASON FOR EXAM: Female, 66 years old. dizziness RADIATION DOSAGE (If Supplied By Facility): CTDIvol = ( 44.99 ) mGy, DLP = ( 796.11 ) mGycm TECHNIQUE: Transaxial CT imaging of the brain was performed without administration of intravenous contrast material. Individualized dose optimization techniques were used for this CT. COMPARISON: No relevant priors. FINDINGS: Normal soft tissue structures. Normal calvarium. Normal size ventricles and extra-axial spaces for the patient''s age. Normal white matter tracts of the cerebral hemispheres. Normal basal ganglia and thalami. Normal brainstem. Normal cerebellum. There is a low-density collection at the left frontal lobe and there is a second CSF density at the right parietal region. Compared to a previous study dated 03/18/2021 the low-density collections were present at that time There is no intracranial hemorrhage. There are no findings of an acute ischemic infarction. Normal visualized paranasal sinuses. CT/Brain/Head without Contrast IMPRESSION: There are low density collections in the left frontal lobe and the right parietal lobe which were present on the previous study of March 18, 2021 Electronically Signed: Jose Miguel Wong MD at 3:34 EDT ,
--- NOTE | 2021-11-01 02:19 | EX.ED.DYSGE1 ---
HPI History of Present Illness Chief Complaint: Other, Pain/Inj Narrative Narrative: Patient is a 66-year-old female with past medical history of traumatic brain injury. She states that this evening she is noticed that she becomes dizzy which she describes as more of a sense of motion with changes in position. She states that she has concern that there is something neurologic happening as she has a history of a TBI and secondary to this presents for evaluation. [facility] Medical History Alcohol abuse Alcohol dependence Anxiety Attention deficit disorder (ADD) in adult Chronic use of benzodiazepine for therapeutic purpose Family history of bipolar disorder Fibromyalgia GERD (gastroesophageal reflux disease) Heavy alcohol use Hypertension Intraparenchymal hemorrhage of brain Skull fracture with cerebral contusion TMJ arthralgia Tobacco dependence in remission Home Medications vitamin H40-[id number] acid 1 ea PO DAILY 08/27/18 [History Last Taken 04/09/20] ascorbic acid (vitamin C) 1,000 mg PO DAILY 04/10/20 [History Last Taken 04/09/20] biotin 1,000 mcg PO DAILY 04/10/20 [History Last Taken 04/09/20] ferrous sulfate 325 mg PO DAILY 04/10/20 [History Last Taken 04/09/20] magnesium oxide 400 mg PO DAILY 04/10/20 [History Last Taken 04/09/20] malic acid (bulk) 500 gm MC DAILY 04/10/20 [History Last Taken 04/09/20] methylsulfonylmethane 1,000 mg PO DAILY 04/10/20 [History Last Taken 04/09/20] atomoxetine [Strattera] 10 mg PO DAILY #14 cap 01/15/21 [Rx Last Taken Unknown] acetaminophen [Tylenol] 650 mg PO Q6H PRN PRN #1 tab 01/26/21 [Rx Last Taken Unknown] atomoxetine [Strattera] 20 mg PO DAILY@0800 #60 cap 01/26/21 [Rx Last Taken Unknown] buspirone 5 mg PO TID #90 tab 01/26/21 [Rx Last Taken Unknown] melatonin 6 mg PO QHS #60 tab 01/26/21 [Rx Last Taken Unknown] buspirone 5 mg PO TID #90 tab 02/26/21 [Rx Last Taken Unknown] Allergy/AdvReac Type Severity Reaction Status Date / Time Latex, Natural Rubber AdvReac Itching Verified 11/01/21 02:00 pseudoephedrine AdvReac makes me Verified 11/01/21 02:00 feel crazy Family History Mother SAH (subarachnoid hemorrhage) Father CAD (coronary artery disease) first [place] at 55 YOA and at 71 of CVD Brother Alcoholism Bipolar disorder (manic depression) Surgical History History of craniotomy History of right oophorectomy S/P percutaneous endoscopic gastrostomy (PEG) tube placement Social History household members: none number of children: 2 current occupational status: unemployed 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 substance use type: marijuana additional social history: has a significant other who is an alcoholic. she has been seen at the [facility] in the past by Yris Bird. She was on an antidepressant in the 80's but can not recall the name. Takes Lorazepam when she can not sleep. ROS ROS ED Constitutional Constitutional ED: Denies chills or fever(s) Eyes Eyes: Denies change in vision ENT ENT ED: Denies sore throat Cardiovascular Cardiovascular: Denies chest pain Respiratory/Chest Respiratory/Chest: Denies cough or dyspnea Gastrointestinal Gastrointestinal: Denies abdominal pain, diarrhea, nausea or vomiting Genitourinary Genitourinary ED: Denies dysuria Musculoskeletal Musculoskeletal: Denies myalgias Integumentary Denies rash Neurologic Neurologic: Reports other Details: Positive dizziness ; Denies headache(s) Hematologic/Lymphatic Hematologic/Lymphatic: Denies easy bleeding or easy bruising EXAM Physical Exam Const Vital Signs: 11/01/21 01:55 11/01/21 01:58 Temperature 96.6 F L Temperature Source Temporal Pulse Rate 86 Respiratory Rate 16 Respiratory Effort Normal Non-Labored Respiratory Pattern Normal Blood Pressure 133/81 H Blood Pressure Mean 98 Pulse Ox 98 Oxygen Delivery Method Room Air Positive well nourished and well developed General Appearance ED: well developed HEENT HEENT Narrative: Bilateral TMs are normal Eyes PERRL and EOMs intact bilaterally Neck supple Resp normal respiratory effort and clear to auscultation bilaterally Cardio regular rate and regular rhythm GI normal to inspection, nondistended, normoactive bowel sounds, non-tender, non-distended and no masses Auscultation: normoactive bowel sounds Palpation: soft Extremity normal to inspection Neuro oriented x3 and CN's II-XII intact bilaterally Neuro Narrative: Mild horizontal nystagmus noted with positive Hallpike Monroe exam on left. Otherwise no pronator drift or dysmetria no truncal ataxia NIH stroke scale score of 0 Sensorium / Orientation: alert Motor Exam: strength 5/5 throughout Psych Psych Narrative: Patient has a nervous/anxious affect Skin no rashes or lesions noted MDM MDM MDM Narrative Medical decision making narrative: Patient presented to the ER with stable vitals and a exam most consistent with peripheral vertigo. She denies any new medication or blood thinner use but as she does have a history of TBI elected to perform a CT scan. CT scan shows chronic changes consistent with a TBI but no new or acute finding. The patient was given Valium and on reevaluation has improvement of symptoms. Her neuro exam remains normal and vital stable. Therefore at this time as her exam points to peripheral vertigo as the cause of her dizziness and the CT shows no acute findings and vitals have remained stable she is safe for discharge Radiography Diagnostic Testing: Clinical Impression(s) from Imaging Studies Brain CT 11/01/21 02:18 IMPRESSION: There are low density collections in the left frontal lobe and the right parietal lobe which were present on the previous study of March 18, 2021 Electronically Signed: Jose Miguel Wong MD at 3:34 EDT , Discharge Plan Triage Chief Complaint: Other, Pain/Inj ED Provider: Tre Inman Dx/Rx/DC Orders Clinical Impression: Peripheral vertigo Instructions: ED Vertigo, Unspecified Prescriptions: No Action vitamin G68-ccmlw acid 1 EACH tablet 1 ea PO DAILY RF: 0 methylsulfonylmethane 1,000 MG capsule 1,000 mg PO DAILY RF: 0 ascorbic acid (vitamin C) 1,000 MG tablet 1,000 mg PO DAILY RF: 0 magnesium oxide 400 MG tablet 400 mg PO DAILY RF: 0 ferrous sulfate 325 MG tablet 325 mg PO DAILY RF: 0 malic acid (bulk) 500 GM powder 500 gm MC DAILY RF: 0 biotin 1,000 MCG tablet,chewable 1,000 mcg PO DAILY RF: 0 atomoxetine [Strattera] 10 mg capsule 10 mg PO DAILY Qty: 14 RF: 0 buspirone 5 mg Tablet 5 mg PO TID Qty: 90 RF: 0 acetaminophen [Tylenol] 325 mg Tablet 650 mg PO Q6H PRN PRN (Reason: Pain 1-10 Or Fever) Qty: 1 RF: 0 atomoxetine [Strattera] 10 mg Capsule 20 mg PO DAILY@0800 Qty: 60 RF: 0 melatonin 3 mg Tablet 6 mg PO QHS Qty: 60 RF: 0 buspirone 5 mg tablet 5 mg PO TID Qty: 90 RF: 0 Primary Care Provider: Jamie Collins Referrals: Jamie Collins MD [Primary Care Provider] - Activity Restrictions/Additional Instructions: You may take your lorazepam up to 3 times a day for the next 2 to 3 days if necessary secondary to vertigo/dizziness. Please follow-up with your family doctor or return to the ER should you have any further concerns Disposition Disposition: Home, Self Care
[2021-11-01] MEDS: diazePAM 5 MG Tablet PO (02:22)
[2021-11-01 03:58] VITALS: BP 126/69; PULSE 70; RESP 18; O2SAT 96
== END 2021-11-01 04:00 | disposition home or self-care (01) ==
PROVIDERS: Emergency Provider Emergency Medicine; PCP Internal Medicine; Visit Provider Emergency Medicine
DX: H81.399 Other peripheral vertigo, unspecified ear (principal); Z87.820 Personal history of traumatic brain injury; Z87.891 Personal history of nicotine dependence
CPT/HCPCS: 70450; 99283

== ENCOUNTER 2022-01-29 12:12 | Emergency (ER) | payer MEDICARE, MEDICAID, SELFPAY ==
[2022-01-29 12:13] VITALS: BP 151/70; PULSE 71; RESP 18; TEMP 36.2; O2SAT 96; BMI 29.7
--- NOTE | 2022-01-29 12:45 | EKG12_ITS ---
Test Reason : cp Blood Pressure : / mmHG Vent. Rate : 073 BPM Atrial Rate : 073 BPM P-R Int : 162 ms QRS Dur : 066 ms QT Int : 390 ms P-R-T Axes : 072 061 053 degrees QTc Int : 429 ms Normal sinus rhythm Septal infarct , age undetermined Abnormal ECG Confirmed by MILDRED GREGG, CARISSA ([id number]), health editor MARGIE DEY ([id number]) on 02/01/2022 9:14:34 AM Referred By: Aki Confirmed By:CARISSA LEVY MD
--- NOTE | 2022-01-29 12:53 | RAD_ITS ---
INDICATION: chest pain EXAMINATION/TECHNIQUE: X-RAY - XR Chest 1 View COMPARISON: 11/20/2020. FINDINGS: LINES/DEVICES: None. LUNGS: No consolidation, edema or effusion. No pneumothorax. MEDIASTINUM AND CARDIOVASCULAR STRUCTURES: Cardiac silhouette not enlarged. Central airways and mediastinal contour are unremarkable. BONES AND SOFT TISSUES: Unremarkable. RAD/Chest 1 View (Portable) IMPRESSION: No radiographic evidence of acute cardiopulmonary disease. Electronically Signed: Rubio Woodson MD at 13:22 EDT ,
[2022-01-29 13:01] VITALS: O2SAT 98
[2022-01-29 13:04] LABS: Absolute Lymphocyte Count 1.11 X10^3/uL (0.83-4.51); Absolute Neutrophil Count 2.2 X10^3/uL (2.0-7.7); Basophil# 0.02 X10^3/uL; Basophil% 0.6 % (0-1); Eosinophil# 0.03 X10^3/uL; Eosinophils% 0.8 % (0-5); Hematocrit 47.2 % (37-47); Hemoglobin 15.7 g/dL (12.0-15.0); Lymphocyte # 1.11 X10^3/ul (0.83-4.51); Lymphocyte % 30.6 % (19-41); Mean Corp Hgb Conc 33.3 g/dL (32-36); Mean Corpuscular Hgb 30.4 pg (27.0-32.0); Mean Corpuscular Volume 91.5 fL (81-99); Mean Platelet Vol. 10.2 fl (6.2-12.0); Monocyte# 0.25 X10^3/uL; Monocyte% 6.9 % (0-10); NRBC Flagged by Analyzer 0 % (0-5); Neutrophil # 2.21 X10^3/uL (2.7-7.7); Neutrophil % 60.8 % (47-70); Platelet Count 175 K/mm3 (150-450); RBC Distribution Width CV 13.5 % (11.6-14.6); RBC Distribution Width SD 45.6 fl (35.1-43.9); Red Blood Count 5.16 M/mm3 (4.2-5.4); White Blood Count 3.6 K/mm3 (4.4-11.0)
[2022-01-29 13:12] VITALS: PULSE 78; RESP 20; O2SAT 97
[2022-01-29 13:14] LABS: D-Dimer Quantitative (DVT/PE) 0.33 FEU/ug/m (0.27-0.49)
[2022-01-29 13:22] LABS: Anion Gap 6 (5-15); BUN 27 mg/dL (7-18); BUN/Creat Ratio 31.2 RATIO (10-20); Calcium,Total 9.4 mg/dL (8.5-10.1); Chloride 105 mmol/L (98-107); Creatinine, Serum 0.86 mg/dL (0.55-1.02); EST Glomerular Filtration Rate 70 mL/min (>60); Est Glom Filt Rate - Afr Amer 84 mL/min (>60); Estimated Creatinine Clearance 70.05 ml/min; Glucose 81 mg/dL (74-106); Magnesium 2.2 mg/dL (1.6-2.6); Potassium 4.1 mmol/L (3.5-5.1); Sodium Level 137 mmol/L (136-145); Troponin-I HS (w/2H Reflex) 4 pg/mL (3.0-54.0)
[2022-01-29 14:14] VITALS: BP 141/81; PULSE 74; RESP 16; O2SAT 97
--- NOTE | 2022-01-29 14:18 | ED.VIS.CHEST ---
HPI History of Present Illness Chief Complaint: Chest Pain Informant: patient Narrative Narrative: Patient is a 66-year-old female with history of chronic brain injury, anxiety and ADD presenting with back pain. Patient states this morning when she was laying in bed and on her phone she had discomfort between the shoulder blades and below her right shoulder blade. She states that while she knew she was breathing she felt like she was not catching her breath. Denies any associated chest pain but does states she had congestion and a burning sensation in her chest which was reminiscent of her reflux. She was concerned maybe she was having a heart attack so she came to the emergency room for further evaluation. She currently has minimal symptoms but describes it as achy. This occurred around 1030 or 1045 this morning. Patient denies any recent swelling of her legs, history of DVT or PE. She notes he did start to do crunches 2 days ago and wonders if this could be why her back hurts. She did not take anything for her symptoms prior to arrival. Denies any known cardiac history. No other complaints at this time. [facility] Medical History Alcohol abuse Alcohol dependence Anxiety Attention deficit disorder (ADD) in adult Chronic use of benzodiazepine for therapeutic purpose Family history of bipolar disorder Fibromyalgia GERD (gastroesophageal reflux disease) Heavy alcohol use Hypertension Intraparenchymal hemorrhage of brain Skull fracture with cerebral contusion TMJ arthralgia Tobacco dependence in remission Home Medications vitamin B12 500 mcg-folic acid 400 mcg tablet 1 ea PO DAILY SUPPLEMENT 08/27/18 [History Last Taken 04/09/20] ascorbic acid (vitamin C) 1,000 mg tablet 1,000 mg PO DAILY SUPPLEMENT 04/10/20 [History Last Taken 04/09/20] biotin 1,000 mcg chewable tablet 1,000 mcg PO DAILY SUPPLEMENT 04/10/20 [History Last Taken 04/09/20] magnesium oxide 400 mg (241.3 mg magnesium) tablet 400 mg PO DAILY SUPPLEMENT 04/10/20 [History Last Taken 04/09/20] malic acid (bulk) 500 gm MC DAILY SUPPLEMENT 04/10/20 [History Last Taken 04/09/20] methylsulfonylmethane 1,000 mg capsule 1,000 mg PO DAILY SUPPLEMENT 04/10/20 [History Last Taken 04/09/20] acetaminophen 325 mg tablet (Tylenol) 650 mg PO Q6H PRN PRN Pain 1-10 Or Fever #1 TAB 01/26/21 [Rx Last Taken Unknown] melatonin 3 mg tablet 6 mg PO QHS #60 tabs 01/26/21 [Rx Last Taken Unknown] Allergy/AdvReac Type Severity Reaction Status Date / Time Latex, Natural Rubber AdvReac Itching Verified 01/29/22 12:14 pseudoephedrine AdvReac makes me Verified 01/29/22 12:14 feel crazy Family History Mother SAH (subarachnoid hemorrhage) Father CAD (coronary artery disease) first [place] at 55 YOA and at 71 of CVD Brother Alcoholism Bipolar disorder (manic depression) Surgical History History of craniotomy History of right oophorectomy S/P percutaneous endoscopic gastrostomy (PEG) tube placement Social History household members: none number of children: 2 current occupational status: unemployed 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 substance use type: marijuana additional social history: has a significant other who is an alcoholic. she has been seen at the [facility] in the past by Yris Bird. She was on an antidepressant in the 80's but can not recall the name. Takes Lorazepam when she can not sleep. ROS ROS ED Constitutional Constitutional ED: Denies chills or fever(s) Eyes Eyes: Denies change in vision ENT ENT ED: Denies rhinorrhea or sore throat Cardiovascular Cardiovascular: Denies chest pain Respiratory/Chest Respiratory/Chest: Reports dyspnea; Denies cough Gastrointestinal Gastrointestinal: Denies abdominal pain, nausea or vomiting Genitourinary Genitourinary ED: Denies dysuria Musculoskeletal Musculoskeletal: Reports back pain; Denies arthralgias, myalgias or neck pain Integumentary Denies rash Neurologic Neurologic: Denies headache(s), paresthesias or weakness Psychiatric Psychiatric: Reports anxiety; Denies depression Hematologic/Lymphatic Hematologic/Lymphatic: Denies easy bleeding or easy bruising EXAM Physical Exam Const Vital Signs: 01/29/22 12:13 01/29/22 12:27 01/29/22 13:12 Temperature 97.2 F L Temperature Source Temporal Pulse Rate 71 78 Respiratory Rate 18 20 H Respiratory Effort Short of Breath Blood Pressure 151/70 H Blood Pressure Mean 97 Pulse Ox 96 97 Oxygen Delivery Method Room Air Room Air 01/29/22 13:01 01/29/22 14:14 Temperature Temperature Source Pulse Rate 74 Respiratory Rate 16 Respiratory Effort Blood Pressure 141/81 H Blood Pressure Mean 101 Pulse Ox 98 97 Oxygen Delivery Method Room Air Room Air Positive well nourished and well developed General Appearance ED: well developed and NAD HEENT Reports moist mucous membranes normocephalic and atraumatic Eyes PERRL Neck supple and no JVD Chest Wall inspection of chest normal and palpation of chest normal Resp normal respiratory effort and clear to auscultation bilaterally Auscultation: Negative for rales, rhonchi or wheezes Cardio regular rate, regular rhythm and no murmurs Peripheral Pulses: pulses 2+ throughout GI normal to inspection, nondistended, normoactive bowel sounds, soft to palpation and non-tender Back/Spine no CVA tenderness Back/Spine Narrative: Patient has right thoracic paraspinal tenderness to palpation that is reproducible of her pain Extremity normal to inspection General Extremety ED: Negative for edema, pulses abnormal or tenderness General Extremity: Negative for edema or pulses abnormal Neuro oriented x3 Neuro Narrative: No focal deficits appreciated Motor Exam: Negative for general weakness Psych mental status grossly normal Mood & Affect: anxious Skin no rashes or lesions noted Rashes: No rashes noted Heart Score History: Slightly/Non-Suspicious ECG: Normal Age: >/= 65 years Risk Factors: 1 or 2 Risk Factors Troponin: </= Normal Limit Score: 3 MDM MDM MDM Narrative Medical decision making narrative: Patient is evaluated for thoracic back pain and sensation of chest discomfort. She appears nontoxic in no acute distress. Vital signs are significant only for mild hypertension. Patient states she is been told she is hypertensive in the past but not currently on any medicines. Patient is low risk for PE and her D-dimer is normal. I feel like this effectively rules out pulmonary emboli. Her EKG does not show any ischemic changes and high sensitivity troponin is normal at 4. I suspect her pain is muscle skeletal and I do not think she requires a repeat high-sensitivity troponin. Patient is offered Tylenol in the ER but she states she will just take it at home. Is counseled on return precautions. Encouraged to follow-up with her primary care doctor. Encouraged to use Lidoderm patch or Epson baths to help with her pain. Lab Data Attestation: I reviewed the patient's lab results. Labs: Laboratory Results - last 24 hr 01/29/22 01/29/22 01/29/22 12:35 12:35 12:35 WBC 3.6 L RBC 5.16 Hgb 15.7 H Hct 47.2 H MCV 91.5 MCH 30.4 MCHC 33.3 RDW Std Deviation 45.6 H RDW Coeff of Rhona 13.5 Plt Count 175 MPV 10.2 Immature Gran % (Auto) 0.300 Neut % (Auto) 60.8 Lymph % (Auto) 30.6 [place] % (Auto) 6.9 Eos % (Auto) 0.8 Baso % (Auto) 0.6 Absolute Neuts (auto) 2.2 Absolute Lymphs (auto) 1.11 Nucleated RBC % 0 D-Dimer Quant (PE/DVT) 0.33 Sodium 137 Potassium 4.1 Chloride 105 Carbon Dioxide 26.0 Anion Gap 6 BUN 27 H Creatinine 0.86 Estim Creat Clear Calc 70.05 Est GFR (MDRD) Af Amer 84 Est GFR (MDRD) Non-Af 70 BUN/Creatinine Ratio 31.2 H Glucose 81 Calcium 9.4 Magnesium 2.2 Troponin I High Sens 4 Radiography Chest X-Ray - ED: 1 View, Read by ED Physician, Read by Radiologist and No Acute Disease Diagnostic Testing: Clinical Impression(s) from Imaging Studies Chest X-Ray 01/29/22 12:53 IMPRESSION: No radiographic evidence of acute cardiopulmonary disease. Electronically Signed: Rubio Woodson MD at 13:22 EDT , Rhythm Strip Rhythm Strip: Sinus Rhythm Rate: 73 Ectopy: None EKG Initial EKG: Attestation: I personally reviewed and interpreted this EKG as follows: Interpretation: Sinus Rhythm Comments: Normal sinus rhythm at a rate of 73 Normal axis Normal intervals Normal ST segments Discharge Plan Triage Chief Complaint: Chest Pain ED Provider: Yun Prabhakar Dx/Rx/DC Orders Clinical Impression: Back pain, thoracic, Chest tightness Instructions: ED Chest Pain, Noncardiac, ED Back Pain (Acute or Chronic) Prescriptions: No Action vitamin [id number]-[id number] acid 1 EACH tablet 1 ea PO DAILY methylsulfonylmethane 1,000 MG capsule 1,000 mg PO DAILY ascorbic acid (vitamin C) 1,000 MG tablet 1,000 mg PO DAILY magnesium oxide 400 MG tablet 400 mg PO DAILY malic acid (bulk) 500 GM powder 500 gm MC DAILY biotin 1,000 MCG tablet,chewable 1,000 mcg PO DAILY acetaminophen [Tylenol] 325 mg Tablet 650 mg PO Q6H PRN PRN (Reason: Pain 1-10 Or Fever) Qty: 1 0RF melatonin 3 mg Tablet 6 mg PO QHS Qty: 60 0RF Primary Care Provider: Jamie Collins Referrals: Jamie Collins MD [Primary Care Provider] - Activity Restrictions/Additional Instructions: It is safe to take Tylenol at home for her discomfort. I suspect your pain is muscle skeletal. Please follow-up with your primary care doctor. You can use [id number] Lidoderm patches or Epson baths to see this helps the pain as well. Disposition Disposition: Home, Self Care Discharge Date/Time: 01/29/22 14:33
[2022-01-29 14:59] LABS: Reflex Troponin-HS? (from REC) Y
== END 2022-01-29 14:33 | disposition home or self-care (01) ==
PROVIDERS: Emergency Provider Emergency Medicine; PCP Internal Medicine; Visit Provider Emergency Medicine
DX: R07.89 Other chest pain (principal); M54.6 Pain in thoracic spine; I10 Essential (primary) hypertension; M79.7 Fibromyalgia; Z79.899 Other long term (current) drug therapy; Z87.891 Personal history of nicotine dependence
CPT/HCPCS: 71045; 80048; 83735; 84484; 85025; 85379; 93005; 99284

== ENCOUNTER 2022-03-12 22:25 | Emergency (ER) | payer MEDICARE, MEDICAID, SELFPAY ==
[2022-03-12 22:27] VITALS: BP 125/67; PULSE 84; RESP 16; TEMP 36.2; O2SAT 95; BMI 30.2
--- NOTE | 2022-03-12 23:05 | EDS_ITS ---
HPI History of Present Illness Chief Complaint: Eye Problem Narrative Narrative: 67-year-old female presenting with concern that she lost her contact in her left left thigh. She states that she recently had some new contacts prescribed for which she states were awful. They cause her eyes to burn. She states that she was able to get the right one out but they are more difficult and she had thought. She does not know where the left one went to. She denies any watering eye, crusting, visual disturbance other than her normal vision. She has not had any trauma. She states she had lost her glasses this evening and has been having trouble seeing but this is her baseline. She saw her laborer filter plant today who looked at her eyes and she states that they did not see any contact in there. She presents here for a second opinion. [facility] Medical History Alcohol abuse Alcohol dependence Anxiety Attention deficit disorder (ADD) in adult Chronic use of benzodiazepine for therapeutic purpose Family history of bipolar disorder Fibromyalgia GERD (gastroesophageal reflux disease) Heavy alcohol use Hypertension Intraparenchymal hemorrhage of brain Skull fracture with cerebral contusion TMJ arthralgia Tobacco dependence in remission Home Medications vitamin B12 500 mcg-folic acid 400 mcg tablet 1 ea PO DAILY SUPPLEMENT 08/27/18 [History Last Taken 04/09/20] ascorbic acid (vitamin C) 1,000 mg tablet 1,000 mg PO DAILY SUPPLEMENT 04/10/20 [History Last Taken 04/09/20] biotin 1,000 mcg chewable tablet 1,000 mcg PO DAILY SUPPLEMENT 04/10/20 [History Last Taken 04/09/20] magnesium oxide 400 mg (241.3 mg magnesium) tablet 400 mg PO DAILY SUPPLEMENT 04/10/20 [History Last Taken 04/09/20] malic acid (bulk) 500 gm MC DAILY SUPPLEMENT 04/10/20 [History Last Taken 04/09/20] methylsulfonylmethane 1,000 mg capsule 1,000 mg PO DAILY SUPPLEMENT 04/10/20 [History Last Taken 04/09/20] acetaminophen 325 mg tablet (Tylenol) 650 mg PO Q6H PRN PRN Pain 1-10 Or Fever #1 TAB 01/26/21 [Rx Last Taken Unknown] melatonin 3 mg tablet 6 mg PO QHS #60 tabs 01/26/21 [Rx Last Taken Unknown] Allergy/AdvReac Type Severity Reaction Status Date / Time Latex, Natural Rubber AdvReac Itching Verified 03/12/22 22:31 pseudoephedrine AdvReac makes me Verified 03/12/22 22:31 feel crazy Family History Mother SAH (subarachnoid hemorrhage) Father CAD (coronary artery disease) first [place] at 55 YOA and at 71 of CVD Brother Alcoholism Bipolar disorder (manic depression) Surgical History History of craniotomy History of right oophorectomy S/P percutaneous endoscopic gastrostomy (PEG) tube placement Social History household members: none number of children: 2 current occupational status: unemployed 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 substance use type: marijuana additional social history: has a significant other who is an alcoholic. she has been seen at the [facility] in the past by Yris Bird. She was on an antidepressant in the 80's but can not recall the name. Takes Lorazepam when she can not sleep. ROS ROS ED Constitutional Constitutional ED: Denies chills or fever(s) Eyes Eyes: Denies change in vision or diplopia ENT ENT ED: Denies rhinorrhea or sore throat Cardiovascular Cardiovascular: Denies chest pain or palpitations Respiratory/Chest Respiratory/Chest: Denies cough or dyspnea Gastrointestinal Gastrointestinal: Denies abdominal pain or constipation Genitourinary Genitourinary ED: Denies dysuria or hematuria Musculoskeletal Musculoskeletal: Denies arthralgias or back pain Integumentary Denies abscess or Abrasions Neurologic Neurologic: Denies headache(s) or paresthesias Psychiatric Psychiatric: Denies anxiety or depression EXAM Physical Exam Const Vital Signs: 03/12/22 22:27 Temperature 97.1 F L Temperature Source Temporal Pulse Rate 84 Respiratory Rate 16 Blood Pressure 125/67 H Blood Pressure Mean 86 Pulse Ox 95 Oxygen Delivery Method Room Air Positive well nourished General Appearance ED: JUAN CARLOS BARKER Narrative: Mild scleral injection. No drainage noted. No crusting of the eyelids. Lashes are normal. The left eye was evaluated for foreign bodies and no contact was found in the left eye. atraumatic Resp normal respiratory effort Cardio regular rate and regular rhythm Neuro oriented x3 and CN's II-XII intact bilaterally Sensorium / Orientation: alert Skin no wounds MDM MDM MDM Narrative Medical decision making narrative: Patient was seen by her laborer filter plant today she had her eyes evaluated and did not have any sign of abrasions and did not have any signs of foreign bodies. She presents today for a second opinion and I do not see any foreign bodies. Patient states that she is still having vision problems and needs new glasses because she lost hers. I recommended she follow-up with her regular eye doctor. Patient discharged home in stable condition. Impression: 1. Concern for foreign body left Lab Data Attestation: I reviewed the patient's lab results. Discharge Plan Triage Chief Complaint: Eye Problem ED Provider: Andrea Richey Dx/Rx/DC Orders Instructions: ED Corneal Foreign Body, Removed Prescriptions: No Action vitamin M18-gfelx acid 1 EACH tablet 1 ea PO DAILY methylsulfonylmethane 1,000 MG capsule 1,000 mg PO DAILY ascorbic acid (vitamin C) 1,000 MG tablet 1,000 mg PO DAILY magnesium oxide 400 MG tablet 400 mg PO DAILY malic acid (bulk) 500 GM powder 500 gm MC DAILY biotin 1,000 MCG tablet,chewable 1,000 mcg PO DAILY acetaminophen [Tylenol] 325 mg Tablet 650 mg PO Q6H PRN PRN (Reason: Pain 1-10 Or Fever) Qty: 1 0RF melatonin 3 mg Tablet 6 mg PO QHS Qty: 60 0RF Primary Care Provider: Jamie Collins Referrals: Jamie Collins MD [Primary Care Provider] - Disposition Disposition: Home, Self Care
[2022-03-12] MEDS: Tetracaine 0.5% Ophthalmic Bottle 1 DRP LEFT EYE (23:17)
[2022-03-12] MEDS: Fluorescein 1 MG STRIP 1 STRIP LEFT EYE (23:17)
== END 2022-03-12 23:20 | disposition home or self-care (01) ==
PROVIDERS: Emergency Provider Student in an Organized Health Care Education/Training Program; PCP Internal Medicine; Visit Provider Student in an Organized Health Care Education/Training Program
DX: Z01.89 Encounter for other specified special examinations (principal); Z87.891 Personal history of nicotine dependence
CPT/HCPCS: 99281; 99282

== ENCOUNTER 2022-05-02 20:06 | Emergency (ER) | payer MEDICARE, MEDICAID, SELFPAY ==
[2022-05-02 20:06] VITALS: BP 154/81; PULSE 72; RESP 16; TEMP 36.7; O2SAT 98; BMI 30.2
[2022-05-02 20:08] VITALS: BP 154/81; PULSE 72; RESP 16; TEMP 36.7; O2SAT 98
[2022-05-02] MEDS: Diphth,Pertuss(Acell),Tet Vac 0.5 ML Vial IM (20:42)
[2022-05-02] MEDS: Amox/Clavulanate 875 MG Tablet PO (20:46)
--- NOTE | 2022-05-02 21:29 | EX.ED.UPPERE ---
HPI History of Present Illness Chief Complaint: Bite Detail of Chief Complaint: Scratched and bit by cat Informant: patient Occured/Mechanism Comment: Cat bite right index finger and scratch dorsum of right hand over the first metacarpal bone Onset/Context/Timing Context: Sudden Onset Timing: - (Not applicable) Quality of Pain: - (Presently none) Location: Right hand Current Severity: Gone Maximum Severity: Moderate Worsened by: Cat bite Relieved by: Not applicable Associated Symptoms Associated Symptoms: Negative for Parasthesia, Weakness or Loss of Funtion Narrative Narrative: Patient is a 67-year-old [id number] woman who presents with scratch to the dorsum of the right hand and puncture wound due to cat bite volar surface right index finger proximal the DIP joint. She does not complain of pain. She denies swelling. Denies drainage. This was a stray cat. Patient's last tetanus shot was 2014. Patient is not on immunosuppressive meds. Patient is on no anticoagulant. Patient has no allergies to antibiotics. Tetanus Immunization: 5-10 years Prior similar symptoms: No Recent Illness/Hospitalization: No [facility] Medical History Alcohol abuse Alcohol dependence Anxiety Attention deficit disorder (ADD) in adult Bronchitis Chronic use of benzodiazepine for therapeutic purpose Family history of bipolar disorder Fibromyalgia GERD (gastroesophageal reflux disease) Heavy alcohol use Hypertension Intraparenchymal hemorrhage of brain Skull fracture with cerebral contusion TMJ arthralgia Tobacco dependence in remission Home Medications vitamin B12 500 mcg-folic acid 400 mcg tablet 1 ea PO DAILY SUPPLEMENT 08/27/18 [History Last Taken 04/09/20] ascorbic acid (vitamin C) 1,000 mg tablet 1,000 mg PO DAILY SUPPLEMENT 04/10/20 [History Last Taken 04/09/20] biotin 1,000 mcg chewable tablet 1,000 mcg PO DAILY SUPPLEMENT 04/10/20 [History Last Taken 04/09/20] magnesium oxide 400 mg (241.3 mg magnesium) tablet 400 mg PO DAILY SUPPLEMENT 04/10/20 [History Last Taken 04/09/20] malic acid (bulk) 500 gm MC DAILY SUPPLEMENT 04/10/20 [History Last Taken 04/09/20] methylsulfonylmethane 1,000 mg capsule 1,000 mg PO DAILY SUPPLEMENT 04/10/20 [History Last Taken 10/11/20] acetaminophen 325 mg tablet (Tylenol) 650 mg PO Q6H PRN PRN Pain 1-10 Or Fever #1 TAB 01/26/21 [Rx Last Taken Unknown] melatonin 3 mg tablet 6 mg PO QHS #60 tabs 01/26/21 [Rx Last Taken Unknown] amoxicillin 875 mg-potassium clavulanate 125 mg tablet 875 mg PO Q12H #8 TABLETS 05/02/22 [Rx Last Taken Unknown] Allergy/AdvReac Type Severity Reaction Status Date / Time Latex, Natural Rubber AdvReac Itching Verified 05/02/22 20:08 pseudoephedrine AdvReac makes me Verified 05/02/22 20:08 feel crazy Family History Mother SAH (subarachnoid hemorrhage) Father CAD (coronary artery disease) first [place] at 55 YOA and at 71 of CVD Brother Alcoholism Bipolar disorder (manic depression) Surgical History History of craniotomy History of right oophorectomy S/P percutaneous endoscopic gastrostomy (PEG) tube placement Social History household members: none number of children: 2 current occupational status: unemployed 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 substance use type: marijuana additional social history: has a significant other who is an alcoholic. she has been seen at the [facility] [place] in the past by Yris Bird. She was on an antidepressant in the 80's but can not recall the name. Takes Lorazepam when she can not sleep. ROS ROS ED Constitutional Constitutional ED: Denies chills, fever(s), subjective, sweats or weight loss Eyes Eyes: Denies blurry vision, change in vision or diplopia Integumentary Reports other Details: Cat scratch and cat bite as previously described Neurologic Neurologic: Denies paresthesias or weakness Hematologic/Lymphatic Hematologic/Lymphatic: Denies easy bleeding or easy bruising EXAM Physical Exam Const Vital Signs: 05/02/22 20:06 05/02/22 20:08 Temperature 98.1 F 98.1 F Temperature Source Temporal Temporal Pulse Rate 72 72 Respiratory Rate 16 16 Blood Pressure 154/81 H 154/81 H Blood Pressure Mean 105 105 Pulse Ox 98 98 Oxygen Delivery Method Room Air Room Air Positive well nourished and well developed General Appearance ED: well developed and NAD HEENT Reports moist mucous membranes normocephalic and atraumatic Eyes PERRL and EOMs intact bilaterally Resp normal respiratory effort Cardio regular rate and regular rhythm Extremity Negative for normal to inspection Extremity Narrative: Patient has puncture wound due to cat bite volar surface of right index finger proximal to the PIP joint. The flexor digitorum superficialis and flexor digitorum profundus are intact. There is no swelling, warmth, redness or drainage. There is no pain ovation over the flexor tendon. There is a scratch noted on the dorsum of the hand. This does not appear infected Neuro oriented x3, CN's II-XII intact bilaterally and moves all extremities Neuro Narrative: Median, radial and ulnar function intact. Sensation intact. Capillary refill normal. Sensorium / Orientation: alert, oriented to person, oriented to place and oriented to time Motor Exam: strength 5/5 throughout Psych mental status grossly normal Skin Skin Narrative: Cat bite and cat scratch right hand as previously MDM MDM MDM Narrative Medical decision making narrative: Update tetanus since this is a cat bite and Augmentin. Patient was discharged with scription for Augmentin. Presently there is no evidence of infection. Discharge Plan Triage Chief Complaint: Bite ED Provider: Wilmer Monteiro Dx/Rx/DC Orders Clinical Impression: Cat bite of finger, Cat scratch of left hand Instructions: ED Cat Bite Prescriptions: New amoxicillin-pot clavulanate [amoxicillin-pot clavulanate] 875-125 mg tablet 875 mg PO Q12H Qty: 8 0RF No Action vitamin Q59-ltffv acid 1 EACH tablet 1 ea PO DAILY methylsulfonylmethane 1,000 MG capsule 1,000 mg PO DAILY ascorbic acid (vitamin C) 1,000 MG tablet 1,000 mg PO DAILY magnesium oxide 400 MG tablet 400 mg PO DAILY malic acid (bulk) 500 GM powder 500 gm MC DAILY biotin 1,000 MCG tablet,chewable 1,000 mcg PO DAILY acetaminophen [Tylenol] 325 mg Tablet 650 mg PO Q6H PRN PRN (Reason: Pain 1-10 Or Fever) Qty: 1 0RF melatonin 3 mg Tablet 6 mg PO QHS Qty: 60 0RF Primary Care Provider: Jamie Collins Referrals: Jamie Collins MD [Primary Care Provider] - 2 Days for wound check Activity Restrictions/Additional Instructions: If there is any concern for infection or you are unable to see Dr. Collins in 2 days return for wound check Disposition Disposition: Home, Self Care
== END 2022-05-02 21:42 | disposition home or self-care (01) ==
PROVIDERS: Emergency Provider Emergency Medicine; PCP Internal Medicine; Visit Provider Emergency Medicine
DX: S60.470A Other superficial bite of right index finger, initial encounter (principal); S60.511A Abrasion of right hand, initial encounter; W55.01XA Bitten by cat, initial encounter; Z87.891 Personal history of nicotine dependence; Z23 Encounter for immunization
CPT/HCPCS: 90471; 90715; 99283

== ENCOUNTER 2022-07-22 12:52 | Emergency (ER) | payer MEDICARE, MEDICAID, SELFPAY ==
[2022-07-22 12:54] VITALS: BP 161/81; PULSE 127; RESP 18; TEMP 36.9; O2SAT 95; BMI 33.0
--- NOTE | 2022-07-22 13:19 | CT_ITS ---
STUDY: CT BRAIN WITHOUT CONTRAST REASON FOR EXAM: Female, 67 years old. New onset seizure. History of prior traumatic brain injury. RADIATION DOSAGE (If Supplied By Facility): CTDIvol = ( 44.99 ) mGy, DLP = ( 812.98 ) mGycm TECHNIQUE: Transaxial CT imaging of the brain was performed without administration of intravenous contrast material. Individualized dose optimization techniques were used for this CT. COMPARISON: Comparison is made with prior study dated 11/01/2021. FINDINGS: Normal soft tissue structures. There is evidence of a prior right craniotomy. Normal size ventricles and extra-axial spaces for the patient''s age. Once again, there is evidence of encephalomalacia in the left frontal lobe. Stable focal encephalomalacia in the right temporal lobe extending into the parietal lobe on the right side. Normal basal ganglia and thalami. Normal brainstem. Normal cerebellum. There is no intracranial hemorrhage. There are no findings of an acute ischemic infarction. Normal visualized paranasal sinuses. CT/Brain/Head without Contrast IMPRESSION: Stable focal encephalomalacia in the left frontal lobe as well as in the right temporal lobe. Status post right craniotomy. Electronically Signed: Jesus Liu MD at 14:20 EST ,
[2022-07-22 13:49] LABS: Absolute Lymphocyte Count 0.99 X10^3/uL (0.83-4.51); Basophil# 0.02 X10^3/uL; Basophil% 0.6 % (0-1); Eosinophil# 0.01 X10^3/uL; Eosinophils% 0.3 % (0-5); Lymphocyte # 0.99 X10^3/ul (0.83-4.51); Lymphocyte % 30.6 % (19-41); Mean Corp Hgb Conc 33.3 g/dL (32-36); Mean Corpuscular Hgb 30.2 pg (27.0-32.0); Mean Corpuscular Volume 90.6 fL (81-99); Mean Platelet Vol. 10.4 fl (6.2-12.0); Monocyte% 6.2 % (0-10); NRBC Flagged by Analyzer 0 % (0-5); Neutrophil # 2.01 X10^3/uL (2.7-7.7); Platelet Count 152 K/mm3 (150-450); RBC Distribution Width CV 13.6 % (11.6-14.6); RBC Distribution Width SD 45.6 fl (35.1-43.9); White Blood Count 3.2 K/mm3 (4.4-11.0)
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
[2022-07-22 14:01] LABS: AST(SGOT) 23 U/L (15-37); Alanine Aminotransfer ALT/SGPT 33 U/L (13-56); Albumin, Serum 4.3 g/dL (3.2-5.0); Alkaline Phosphatase 68 U/L (45-117); Anion Gap 10 (5-15); BUN 27 mg/dL (7-18); BUN/Creat Ratio 24.8 RATIO (10-20); Bilirubin, Direct 0.19 mg/dL (0.00-0.30); Calcium,Total 9.1 mg/dL (8.5-10.1); Chloride 103 mmol/L (98-107); Creatinine, Serum 1.09 mg/dL (0.55-1.02); EST Glomerular Filtration Rate 53 mL/min (>60); Est Glom Filt Rate - Afr Amer 65 mL/min (>60); Estimated Creatinine Clearance 59.71 ml/min; Globulin 3.4 g/dL (2.2-4.2); Glucose 124 mg/dL (74-106); Potassium 4.2 mmol/L (3.5-5.1); Protein, Total 7.7 g/dL (6.4-8.2); Sodium Level 137 mmol/L (136-145)
[2022-07-22 14:05] LABS: Prothrombin Time (Protime)PT. 13.2 SECONDS (11.7-14.9)
[2022-07-22 14:52] VITALS: BP 139/68
[2022-07-22 16:52] VITALS: BP 148/90
--- NOTE | 2022-07-22 17:07 | CM.ED ---
Social Work Note Referral Source: MD Monteiro Referral Reason: resources SW met with MD Monteiro and reviewed patient's symptoms and current financial concerns. SW to follow up with patient. SW met with patient and introduced herself and role as [facility] Instructor [employer], patient agreed to meet with SW. SW inquired about patient's symptoms and current concerns. Patient reviewed events that lead to patient coming into the ED and reviewed challenges she has encountered over the past few years including losing her job during the covid pandemic and having a TBI in 2020. Patient explained she currently has services through [facility] but needs more assistance around the house specifically for house keeping. SW educated patient on services available through [facility]/ [employer] and provided patient with service and contact information. SW also provided patient with [employer] resources and highlighted [employer] for assistance with utilities. SW also highlighted [employer] as they can deliver donated food to patient monthly at no cost to her. SW also educated patient on [facility] and inquired about patient's interest. Patient was receptive towards resources offered. Patient stated she would accept information about [facility] but did not want a referral at this time. Patient states she would follow up with [employer] and [employer]. Patient explained her son was going out of state for work but her friend, Timo, would be available to help her as needed. Patient voiced concerns about pain in her ankle, SW explained she would follow up with the doctor. No other needs or concerns voiced at this time. SW available if other needs arise. SW informed MD Monteiro of resources provided to patient and informed MD about patient's concern regarding pain in her ankle. MD to follow up with concerns. RN updated about resources provided. Plan: The following resources were provided: WH[employer] list with [employer] and [employer] highlighted, information about [facility], information for [employer]. Patient to follow up with agencies after d/c home. Zo Graf MSW, EVELIN
[2022-07-22 17:12] VITALS: RESP 14
== END 2022-07-22 17:44 | disposition home or self-care (01) ==
PROVIDERS: Emergency Provider Emergency Medicine; PCP Internal Medicine; Visit Provider Emergency Medicine
DX: R56.9 Unspecified convulsions (principal); Z93.1 Gastrostomy status; S02.91XA Unspecified fracture of skull, initial encounter for closed fracture; S06.9XAA Unspecified intracranial injury with loss of consciousness status unknown, initial encounter; S93.492A Sprain of other ligament of left ankle, initial encounter; F12.90 Cannabis use, unspecified, uncomplicated; E66.9 Obesity, unspecified; Z87.891 Personal history of nicotine dependence; X58.XXXA Exposure to other specified factors, initial encounter
CPT/HCPCS: 70450; 80048; 80076; 85025; 85610; 96365; 99285; A4216

== ENCOUNTER → 2023-11-12 | Outpatient (CLI) | payer MEDICARE, SELFPAY ==
--- NOTE | 2023-11-12 11:29 | MRI_ITS ---
EXAM: MR HEAD WITHOUT INTRAVENOUS CONTRAST CLINICAL INDICATION: Seizure after head injury. TECHNIQUE: Multiplanar and multisequence MR images of the brain were obtained without intravenous contrast. COMPARISON: CT head without contrast 07/22/2022. FINDINGS: BRAIN AND EXTRA-AXIAL SPACES: Traumatic cystic encephalomalacia and atrophy in the left frontal pole extending to the left medial and lateral orbital gyri. Traumatic cystic encephalomalacia and atrophy in the right anterior temporal pole extending to the right superior temporal gyrus and a small portion of the right middle temporal gyrus. Ex vacuo dilatation of the inferior horn, temporal horn, atrium and occipital horn of right lateral ventricle. No communicating or noncommunicating hydrocephalus. No intra- or extra-axial hemorrhage. No evidence of acute infarct. No intracranial mass or mass effect. There is preservation of the galvan/white matter interface. Posterior fossa structures are unremarkable. Basal cisterns are patent. SELLA: Unremarkable. Normal sella turcica, pituitary gland, infundibular stalk, optic chiasm and hypothalamus. AUDITORY SYSTEM: Unremarkable. The internal auditory canals are patent. BONES/JOINTS: Right-sided craniotomy is unchanged. No discrete lytic or blastic abnormalities. SINUSES: Unremarkable as visualized. Clear. MASTOID AIR CELLS: Unremarkable as visualized. Clear. ORBITS: Unremarkable as visualized. Both globes, extraocular muscles, optic nerves and retrobulbar fat appear unremarkable. VASCULATURE: Unremarkable as visualized. Normal flow voids in the major intracranial circulation. MRI/Brain without Contrast IMPRESSION: 1. No MRI evidence of intracranial mass, acute ischemic infarct or acute intracranial abnormality. 2. Traumatic cystic encephalomalacia and atrophy in the left frontal pole extending to the left medial and lateral orbital gyri and traumatic cystic encephalomalacia and atrophy in the right anterior temporal pole extending to the right superior temporal gyrus and a small portion of the right middle temporal gyrus. 3. No significant interval change when compared to noncontrast CT head scan of 11/12/2023. Electronically Signed: Elder Lynn MD at 12:33 EDT ,
== END | disposition home or self-care (01) ==
PROVIDERS: PCP Internal Medicine; Referring Provider Psychiatry & Neurology Neurology; Visit Provider Psychiatry & Neurology Neurology
DX: R56.1 Post traumatic seizures (principal)
CPT/HCPCS: 70551

== ENCOUNTER 2023-12-23 13:07 | Emergency (ER) | payer MEDICARE, SELFPAY ==
[2023-12-23 13:08] VITALS: BP 137/97; PULSE 73; RESP 18; TEMP 36.4; O2SAT 99; BMI 32.5
--- NOTE | 2023-12-23 14:58 | CT_ITS ---
STUDY: CT BRAIN WITHOUT CONTRAST REASON FOR EXAM: Female, 68 years old. Fall RADIATION DOSAGE (If Supplied By Facility): CTDIvol = ( 47.06 ) mGy, DLP = ( 819.74 ) mGycm TECHNIQUE: Transaxial CT imaging of the brain was performed without administration of intravenous contrast material. Individualized dose optimization techniques were used for this CT. COMPARISON: Prior study dated: 11/12/2023 FINDINGS: PARENCHYMA: There are stable old infarcts in the right temporal lobe and left frontal lobe. There is no acute bleed or infarct. There are stable chronic ischemic and atrophic changes. VENTRICLES: There is no hydrocephalus. MASTOID AIR CELLS AND PARANASAL SINUSES: The visualized paranasal sinuses are clear. The mastoid air cells are clear. BONES: There are stable post surgical changes from a prior right-sided craniotomy. There is no skull fracture. SOFT TISSUES: The visualized soft tissues are within normal limits. CT/Brain/Head without Contrast IMPRESSION: Stable chronic ischemic and atrophic changes. No acute intracranial abnormality. 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 Electronically Signed: Jim Davenport MD at 15:54 EDT ,
--- NOTE | 2023-12-23 15:00 | EDS_ITS ---
HPI History of Present Illness Chief Complaint: Head Injury [facility] Medical History Alcohol abuse Alcohol dependence Anxiety Attention deficit disorder (ADD) in adult Bronchitis Chronic use of benzodiazepine for therapeutic purpose Family history of bipolar disorder Fibromyalgia GERD (gastroesophageal reflux disease) Heavy alcohol use Hypertension Intraparenchymal hemorrhage of brain Skull fracture with cerebral contusion TMJ arthralgia Tobacco dependence in remission Home Medications ?Medication ?Instructions ?Recorded ?Last Taken ?Type vitamin B12 500 mcg-folic acid 400 1 ea PO DAILY SUPPLEMENT 08/27/18 04/09/20 History mcg tablet ascorbic acid (vitamin C) 1,000 mg 1,000 mg PO DAILY SUPPLEMENT 04/10/20 04/09/20 History tablet biotin 1,000 mcg chewable tablet 1,000 mcg PO DAILY SUPPLEMENT 04/10/20 04/09/20 History magnesium oxide 400 mg (241.3 mg 400 mg PO DAILY SUPPLEMENT 04/10/20 04/09/20 History magnesium) tablet malic acid (bulk) 500 gm MC DAILY SUPPLEMENT 04/10/20 04/09/20 History methylsulfonylmethane 1,000 mg 1,000 mg PO DAILY SUPPLEMENT 04/10/20 04/09/20 History capsule acetaminophen 325 mg tablet 650 mg (2 x 325 mg) PO Q6H PRN PRN 01/26/21 Unknown Rx (Tylenol) Pain 1-10 Or Fever #1 TAB melatonin 3 mg tablet 6 mg (2 x 3 mg) PO QHS #60 tabs 01/26/21 Unknown Rx amoxicillin 875 mg-potassium 875 mg PO Q12H #8 TABLETS 05/02/22 Unknown Rx clavulanate 125 mg tablet divalproex 500 mg tablet,delayed 500 mg PO BID #60 tabs 07/22/22 Unknown Rx release (Depakote) Allergy/AdvReac Type Severity Reaction Status Date / Time Latex, Natural Rubber AdvReac Itching Verified 12/23/23 13:10 pseudoephedrine AdvReac makes me Verified 12/23/23 13:10 feel crazy Family History Mother SAH (subarachnoid hemorrhage) Father CAD (coronary artery disease) first CT at 55 YOA and at 71 of CVD Brother Alcoholism Bipolar disorder (manic depression) Surgical History History of craniotomy History of right oophorectomy S/P percutaneous endoscopic gastrostomy (PEG) tube placement Social History household members: none number of children: 2 current occupational status: unemployed 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 substance use type: marijuana additional social history: has a significant other who is an alcoholic. she has been seen at the [facility] in the past by Yris Bird. She was on an antidepressant in the 's but can not recall the name. Takes Lorazepam when she can not sleep. EXAM Physical Exam Const Vital Signs: 12/23/23 13:08 12/23/23 13:23 Temperature 97.6 F L Temperature Source Temporal Pulse Rate 73 Respiratory Rate 18 Respiratory Effort Normal Respiratory Depth Normal Respiratory Pattern Normal Blood Pressure 137/97 H Blood Pressure Mean 110 Pulse Ox 99 Oxygen Delivery Method Room Air Room Air Discharge Plan Triage Chief Complaint: Head Injury ED Provider: David Flannery Dx/Rx/DC Orders Prescriptions: No Action vitamin F62-umvet acid 1 EACH tablet 1 ea PO DAILY methylsulfonylmethane 1,000 MG capsule 1,000 mg PO DAILY ascorbic acid (vitamin C) 1,000 MG tablet 1,000 mg PO DAILY magnesium oxide 400 MG tablet 400 mg PO DAILY malic acid (bulk) 500 GM powder 500 gm MC DAILY biotin 1,000 MCG tablet,chewable 1,000 mcg PO DAILY acetaminophen [Tylenol] 325 mg Tablet 650 mg PO Q6H PRN PRN (Reason: Pain 1-10 Or Fever) Qty: 1 0RF melatonin 3 mg Tablet 6 mg PO QHS Qty: 60 0RF amoxicillin-pot clavulanate [amoxicillin-pot clavulanate] 875-125 mg tablet 875 mg PO Q12H Qty: 8 0RF divalproex [Depakote] 500 mg tablet,delayed release (DR/EC) 500 mg PO BID Qty: 60 0RF Primary Care Provider: Jamie Collins Referrals: Jamie Collins MD [Primary Care Provider] - Print Language: Belarusian
--- NOTE | 2023-12-23 15:00 | EX.ED.GENINJ ---
HPI History of Present Illness Chief Complaint: Head Injury Informant: patient Onset/Context/Timing Onset: Yesterday Mechanism/Context: Fall Quality of Pain: Sharp Location: Occiput Worsened by: Palpation Relieved by: Nothing Associated Symptoms Associated Symptoms: Negative for Parasthesias, Weakness, Loss of function, Inability to ambulate or Loss of consciousness Narrative Narrative: Patient presents with a head injury that occurred last night. Patient states she lost her balance and fell backwards. Patient states she hit the back of her head. Patient denies any loss of consciousness. Patient denies any nausea or vomiting. Patient denies any visual changes. Patient denies any paresthesias or weakness. Patient describes her pain as sharp. Patient states it is over the occiput. Patient states it is worse whenever she touches the area. Patient admits to a headache over the bitemporal areas. Patient also admits to some pain into her neck. [facility] Medical History Bronchitis Anxiety Attention deficit disorder (ADD) in adult Alcohol dependence Alcohol abuse TMJ arthralgia Chronic use of benzodiazepine for therapeutic purpose Family history of bipolar disorder Tobacco dependence in remission Heavy alcohol use Skull fracture with cerebral contusion Intraparenchymal hemorrhage of brain Fibromyalgia GERD (gastroesophageal reflux disease) Hypertension Home Medications ?Medication ?Instructions ?Recorded ?Last Taken ?Type vitamin B12 500 mcg-folic acid 400 1 ea PO DAILY SUPPLEMENT 08/27/18 04/09/20 History mcg tablet ascorbic acid (vitamin C) 1,000 mg 1,000 mg PO DAILY SUPPLEMENT 04/10/20 04/09/20 History tablet biotin 1,000 mcg chewable tablet 1,000 mcg PO DAILY SUPPLEMENT 04/10/20 04/09/20 History magnesium oxide 400 mg (241.3 mg 400 mg PO DAILY SUPPLEMENT 04/10/20 04/09/20 History magnesium) tablet malic acid (bulk) 500 gm MC DAILY SUPPLEMENT 04/10/20 04/09/20 History methylsulfonylmethane 1,000 mg 1,000 mg PO DAILY SUPPLEMENT 04/10/20 04/09/20 History capsule acetaminophen 325 mg tablet 650 mg (2 x 325 mg) PO Q6H PRN PRN 01/26/21 Unknown Rx (Tylenol) Pain 1-10 Or Fever #1 TAB melatonin 3 mg tablet 6 mg (2 x 3 mg) PO QHS #60 tabs 07/30/21 Unknown Rx amoxicillin 875 mg-potassium 875 mg PO Q12H #8 TABLETS 05/02/22 Unknown Rx clavulanate 125 mg tablet divalproex 500 mg tablet,delayed 500 mg PO BID #60 tabs 07/22/22 Unknown Rx release (Depakote) Allergy/AdvReac Type Severity Reaction Status Date / Time Latex, Natural Rubber AdvReac Itching Verified 12/23/23 13:10 pseudoephedrine AdvReac makes me Verified 12/23/23 13:10 feel crazy Family History Mother SAH (subarachnoid hemorrhage) Father CAD (coronary artery disease) first [place] at 55 YOA and at 71 of CVD Brother Alcoholism Bipolar disorder (manic depression) Surgical History History of right oophorectomy S/P percutaneous endoscopic gastrostomy (PEG) tube placement History of craniotomy Social History household members: none number of children: 2 current occupational status: unemployed 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 substance use type: marijuana additional social history: has a significant other who is an alcoholic. she has been seen at the [facility] in the past by Yris Bird. She was on an antidepressant in the 80's but can not recall the name. Takes Lorazepam when she can not sleep. ROS ROS ED Constitutional Constitutional ED: Denies chills or fever(s) Eyes Eyes: Denies blurry vision or change in vision ENT ENT ED: Denies rhinorrhea or sore throat Cardiovascular Cardiovascular: Denies chest pain or palpitations Respiratory/Chest Respiratory/Chest: Denies cough or dyspnea Gastrointestinal Gastrointestinal: Denies nausea or vomiting Genitourinary Genitourinary ED: Denies dysuria or hematuria Musculoskeletal Musculoskeletal: Reports neck pain; Denies back pain Integumentary Denies abscess or rash Neurologic Neurologic: Reports headache(s); Denies weakness Allergic/Immunologic Allergic/Immunologic ED: Denies mouth swelling or urticaria EXAM Physical Exam Const Vital Signs: 12/23/23 13:08 12/23/23 13:23 Temperature 97.6 F L Temperature Source Temporal Pulse Rate 73 Respiratory Rate 18 Respiratory Effort Normal Respiratory Depth Normal Respiratory Pattern Normal Blood Pressure 137/97 H Blood Pressure Mean 110 Pulse Ox 99 Oxygen Delivery Method Room Air Room Air Positive well nourished and well developed General Appearance ED: well developed and NAD HEENT HEENT Narrative: There is tenderness and edema over the occipital scalp. There is no bony crepitance or step-off noted. tenderness Eyes PERRL and EOMs intact bilaterally Neck full ROM Resp normal respiratory effort and clear to auscultation bilaterally Cardio regular rhythm Rate: regular rate GI non-tender and non-distended Palpation: soft Neuro oriented x3, CN's II-XII intact bilaterally, moves all extremities, no focal motor deficits, no sensory deficits noted and gait normal Mindy Coma Scale: document GCS findings Spontaneous Obeys Commands Oriented 15 Sensorium / Orientation: alert Motor Exam: strength 5/5 throughout Psych mental status grossly normal and thought process normal MDM MDM MDM Narrative Medical decision making narrative: Differential diagnosis includes intracranial bleeding, concussion, and contusion. CT scan of the brain will be obtained to assess for intracranial bleeding. Radiography Diagnostic Testing: Clinical Impression(s) from Imaging Studies Brain CT 12/23/23 14:58 IMPRESSION: Stable chronic ischemic and atrophic changes. No acute intracranial abnormality. 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 Electronically Signed: Jim Davenport MD at 15:54 EDT , CT scan of the brain was obtained. There is no acute bleeding noted. There is no acute abnormality. There are old infarcts in the left frontal lobe and right temporal lobe. This was interpreted by the radiologist and was also independently reviewed by myself. Treatment and Re-Evaluation Narrative: Patient was advised of her findings. Patient was instructed to use ice to the occipital scalp. Patient was instructed to take Tylenol as needed for pain. Patient was instructed to follow-up with her primary care physician and neurologist in 5 to 7 days. Patient understood and was agreeable with the plan. All questions were answered. Discharge Plan Triage Chief Complaint: Head Injury ED Provider: David Flannery Dx/Rx/DC Orders Clinical Impression: Closed head injury, History of recent fall Instructions: ED Head Injury (Adult) Prescriptions: No Action vitamin [id number]-[id number] acid 1 EACH tablet 1 ea PO DAILY methylsulfonylmethane 1,000 MG capsule 1,000 mg PO DAILY ascorbic acid (vitamin C) 1,000 MG tablet 1,000 mg PO DAILY magnesium oxide 400 MG tablet 400 mg PO DAILY malic acid (bulk) 500 GM powder 500 gm MC DAILY biotin 1,000 MCG tablet,chewable 1,000 mcg PO DAILY acetaminophen [Tylenol] 325 mg Tablet 650 mg PO Q6H PRN PRN (Reason: Pain 1-10 Or Fever) Qty: 1 0RF melatonin 3 mg Tablet 6 mg PO QHS Qty: 60 0RF amoxicillin-pot clavulanate [amoxicillin-pot clavulanate] 875-125 mg tablet 875 mg PO Q12H Qty: 8 0RF divalproex [Depakote] 500 mg tablet,delayed release (DR/EC) 500 mg PO BID Qty: 60 0RF Primary Care Provider: Jamie Collins Referrals: Jamie Collins MD [Primary Care Provider] - 5-7 Days Print Language: Frisian Disposition Disposition: Home, Self Care
[2023-12-23 16:08] VITALS: BP 135/82; PULSE 75; RESP 16; TEMP 36.4; O2SAT 98
== END 2023-12-23 16:09 | disposition home or self-care (01) ==
PROVIDERS: Emergency Provider Emergency Medicine; PCP Internal Medicine; Visit Provider Emergency Medicine
DX: S09.90XA Unspecified injury of head, initial encounter (principal); Z93.1 Gastrostomy status; Z87.891 Personal history of nicotine dependence; I10 Essential (primary) hypertension; Z90.721 Acquired absence of ovaries, unilateral
CPT/HCPCS: 70450; 99282

== ENCOUNTER 2024-08-29 20:39 | Emergency (ER) | payer MEDICARE, SELFPAY ==
[2024-08-29 20:40] VITALS: BP 188/80; PULSE 76; RESP 19; TEMP 36.8; O2SAT 100; BMI 36.6
--- NOTE | 2024-08-29 21:05 | EX.ED.DYSGE1 ---
HPI History of Present Illness Chief Complaint: Hypertension Informant: patient Onset/Context/Timing Onset: Days (3) Context: Gradual Onset Timing: Continuous Worsened by: Nothing Relieved by: Nothing Narrative Narrative: Patient presents with elevated blood pressures that have been getting worse over the past 3 days. Patient states she has been taking her blood pressure at home and it has been 167/98 and 158/101. Patient states it is gradually gotten worse. Patient admits to a mild headache. Patient also admits to left leg edema. Patient states she was recently started on Mobic and since that time her blood pressure has been getting worse. Patient denies any fevers or chills. [facility] Medical History Bronchitis Anxiety Attention deficit disorder (ADD) in adult Alcohol dependence Alcohol abuse TMJ arthralgia Chronic use of benzodiazepine for therapeutic purpose Family history of bipolar disorder Tobacco dependence in remission Heavy alcohol use Skull fracture with cerebral contusion Intraparenchymal hemorrhage of brain Fibromyalgia GERD (gastroesophageal reflux disease) Hypertension Home Medications ?Medication ?Instructions ?Recorded ?Last Taken ?Type vitamin B12 500 mcg-folic acid 400 1 ea PO DAILY SUPPLEMENT 08/27/18 04/09/20 History mcg tablet ascorbic acid (vitamin C) 1,000 mg 1,000 mg PO DAILY SUPPLEMENT 04/10/20 04/09/20 History tablet biotin 1,000 mcg chewable tablet 1,000 mcg PO DAILY SUPPLEMENT 04/10/20 04/09/20 History magnesium oxide 400 mg (241.3 mg 400 mg PO DAILY SUPPLEMENT 04/10/20 04/09/20 History magnesium) tablet malic acid (bulk) 500 gm MC DAILY SUPPLEMENT 04/10/20 04/09/20 History methylsulfonylmethane 1,000 mg 1,000 mg PO DAILY SUPPLEMENT 04/10/20 04/09/20 History capsule acetaminophen 325 mg tablet 650 mg (2 x 325 mg) PO Q6H PRN PRN 01/26/21 Unknown Rx (Tylenol) Pain 1-10 Or Fever #1 TAB melatonin 3 mg tablet 6 mg (2 x 3 mg) PO QHS #60 tabs 01/26/21 Unknown Rx amoxicillin 875 mg-potassium 875 mg (0.875 x 875-125 mg) PO 05/02/22 Unknown Rx clavulanate 125 mg tablet Q12H #8 TABLETS divalproex 500 mg tablet,delayed 500 mg PO BID #60 tabs 07/22/22 Unknown Rx release (Depakote) Allergy/AdvReac Type Severity Reaction Status Date / Time Latex, Natural Rubber AdvReac Itching Verified 08/29/24 20:40 pseudoephedrine AdvReac makes me Verified 08/29/24 20:40 feel crazy Family History Mother SAH (subarachnoid hemorrhage) Father CAD (coronary artery disease) first [place] at 55 YOA and at 71 of CVD Brother Alcoholism Bipolar disorder (manic depression) Surgical History History of right oophorectomy S/P percutaneous endoscopic gastrostomy (PEG) tube placement History of craniotomy Social History household members: none number of children: 2 current occupational status: unemployed 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 substance use type: marijuana additional social history: has a significant other who is an alcoholic. she has been seen at the [facility] in the past by Yris Bird. She was on an antidepressant in the 80's but can not recall the name. Takes Lorazepam when she can not sleep. ROS ROS ED Constitutional Constitutional ED: Denies chills or fever(s) Eyes Eyes: Denies blurry vision or change in vision ENT ENT ED: Denies rhinorrhea or sore throat Cardiovascular Cardiovascular: Denies chest pain or palpitations Respiratory/Chest Respiratory/Chest: Denies cough or dyspnea Gastrointestinal Gastrointestinal: Denies nausea or vomiting Genitourinary Genitourinary ED: Denies dysuria or hematuria Musculoskeletal Musculoskeletal: Reports back pain; Denies neck pain Integumentary Denies abscess or rash Neurologic Neurologic: Reports headache(s); Denies weakness Allergic/Immunologic Allergic/Immunologic ED: Denies mouth swelling or urticaria EXAM Physical Exam Const Vital Signs: 08/29/24 20:40 08/29/24 21:27 08/29/24 22:06 Temperature 98.2 F Temperature Source Oral Pulse Rate 76 Pulse Rate [Lying] 66 Pulse Rate [Sitting (for 1 minute prior to obtaining)] 71 Pulse Rate [Standing (for 1 minute prior to obtaining)] 82 Respiratory Rate 19 H Respiratory Effort Normal Respiratory Pattern Normal Blood Pressure 188/80 H Blood Pressure [Lying] 152/65 H Blood Pressure [Sitting (for 1 minute prior to obtaining)] 175/81 H Blood Pressure [Standing (for 1 minute prior to obtaining)] 161/113 H Blood Pressure Mean 116 Blood Pressure Mean [Lying] 94 Blood Pressure Mean [Sitting (for 1 minute prior to obtaining)] 112 Blood Pressure Mean [Standing (for 1 minute prior to obtaining)] 129 Pulse Ox 100 Oxygen Delivery Method Room Air Positive well nourished and well developed Constitutional Narrative: BMI is 36.7 General Appearance ED: well developed and NAD HEENT Reports moist mucous membranes Neck supple and no JVD Resp normal respiratory effort and clear to auscultation bilaterally Cardio regular rate and regular rhythm GI non-tender and non-distended Palpation: soft Extremity Extremity Narrative: There is mild nonpitting edema of the left ankle and calf. There is no tenderness. Pedal pulses are equal bilaterally. Strength is 5/5 bilaterally in the lower extremities. There are no sensory deficits noted. Neuro oriented x3, CN's II-XII intact bilaterally and no sensory deficits noted Sensorium / Orientation: alert Motor Exam: strength 5/5 throughout Psych mental status grossly normal MDM MDM MDM Narrative Medical decision making narrative: Differential diagnosis includes accelerated hypertension, hypertensive urgency, hypertensive emergency, acute kidney injury, peripheral edema, DVT, and anxiety. EKG will be obtained to assess for cardiac dysrhythmia and cardiac ischemia. Chest x-ray will be obtained to assess for pneumonia and bronchitis. CBC will be obtained to assess for leukocytosis and anemia. Basic metabolic profile will be obtained to assess for electrolyte abnormality and renal function. D-dimer will be obtained to assess for DVT. Lab Data Attestation: I reviewed the patient's lab results. Lab results narrative: CBC was reviewed. White blood cell count was slightly low at 3.1. Platelets were slightly low at 117. The remainder is within normal limits. D-dimer was reviewed and was normal at 0.34. Basic metabolic profile was reviewed and was essentially within normal limits. Labs: Laboratory Results - last 24 hr 08/29/24 21:20 WBC 3.1 L RBC 4.27 Hgb 13.3 Hct 39.3 MCV 92.0 MCH 31.1 MCHC 33.8 RDW Std Deviation 47.5 H RDW Coeff of Rhona 14.0 Plt Count 117 L MPV 9.6 Immature Gran % (Auto) 0.000 Neut % (Auto) 45.2 L Lymph % (Auto) 44.9 H [place] % (Auto) 8.3 Eos % (Auto) 1.3 Baso % (Auto) 0.3 Absolute Neuts (auto) 1.4 L Absolute Lymphs (auto) 1.40 Nucleated RBC % 0 D-Dimer Quant (PE/DVT) 0.34 Sodium 137 Potassium 4.5 Chloride Direct 103 Carbon Dioxide 22.8 Anion Gap 11 BUN 23 H Creatinine 0.81 Estim Creat Clear Calc 63.22 Est GFR (MDRD) Non-Af 79 BUN/Creatinine Ratio 28.4 H Glucose 84 Calcium 9.1 Radiography Chest X-Ray - ED: 2 View, Read by ED Physician, Read by Radiologist and No Acute Disease Diagnostic Testing: Clinical Impression(s) from Imaging Studies Chest X-Ray 08/29/24 21:35 IMPRESSION: No radiographic evidence of acute cardiopulmonary disease [facility] and lateral chest x-ray was obtained. There are 2 views. On my independent interpretation, lung aguilar are clear. There is normal cardiac silhouette. Bony thorax is normal. There is no acute process noted. Radiologist also interpreted the x-ray and agrees. EKG Initial EKG: Attestation: I personally reviewed and interpreted this EKG as follows: Interpretation: Sinus Rhythm (64) and No Acute Injury Pattern Comments: EKG was obtained. On my independent interpretation, it showed a normal sinus rhythm with a rate of 64. PA interval, QRS interval, and QTc intervals were all normal. [place] was normal. There are no acute ST or T wave changes. Prior EKG tracings: available for review Prior: Unchanged (01/29/2022) Treatment and Re-Evaluation :: Orthostatic vital signs were obtained and were within normal limits. Patient was given a dose of clonidine here for her blood pressure. Patient was advised of her findings. Patient was instructed to follow-up with her primary care physician in 5 to 7 days. Patient was instructed to keep a log of her blood pressures and take that to her primary care physician. Patient was instructed to return if worse in any way. Patient understood and was agreeable with the plan. All questions were answered. Discharge Plan Triage Chief Complaint: Hypertension ED Provider: David Flannery Dx/Rx/DC Orders Clinical Impression: Hypertension, Peripheral edema Instructions: ED Peripheral Edema, Bilateral, ED Hypertension, Established Prescriptions: No Action vitamin [id number]-[id number] acid 1 EACH tablet 1 ea PO DAILY methylsulfonylmethane 1,000 MG capsule 1,000 mg PO DAILY ascorbic acid (vitamin C) 1,000 MG tablet 1,000 mg PO DAILY magnesium oxide 400 MG tablet 400 mg PO DAILY malic acid (bulk) 500 GM powder 500 gm MC DAILY biotin 1,000 MCG tablet,chewable 1,000 mcg PO DAILY acetaminophen [Tylenol] 325 mg Tablet 650 mg PO Q6H PRN PRN (Reason: Pain 1-10 Or Fever) Qty: 1 0RF melatonin 3 mg Tablet 6 mg PO QHS Qty: 60 0RF amoxicillin-pot clavulanate [amoxicillin-pot clavulanate] 875-125 mg tablet 875 mg PO Q12H Qty: 8 0RF divalproex [Depakote] 500 mg tablet,delayed release (DR/EC) 500 mg PO BID Qty: 60 0RF Primary Care Provider: Jamie Collins Referrals: Jamie Collins MD [Primary Care Provider] - 3-5 Days Print Language: Citizen Of [place] Disposition Disposition: Home, Self Care
--- NOTE | 2024-08-29 21:11 | EKG12_ITS ---
Test Reason : HTN Blood Pressure : */* mmHG Vent. Rate : 64 BPM Atrial Rate : 64 BPM P-R Int : 162 ms QRS Dur : 64 ms QT Int : 388 ms P-R-T Axes : 49 34 39 degrees QTcB Int : 400 ms Normal sinus rhythm Normal ECG Confirmed by Ray Nava ([id number]), sports editor MARGIE DEY ([id number]) on 08/31/2024 10:50:59 AM Referred By: Confirmed By: Ray Nava
[2024-08-29 21:27] VITALS: BP 152/65; BP 161/113; BP 175/81; PULSE 66; PULSE 71; PULSE 82
[2024-08-29 21:31] LABS: Absolute Neutrophil Count 1.4 X10^3/uL (2.0-7.7); Basophil# 0.01 X10^3/uL; Basophil% 0.3 % (0-1); Eosinophil# 0.04 X10^3/uL; Eosinophils% 1.3 % (0-5); Hematocrit 39.3 % (37-47); Hemoglobin 13.3 g/dL (12.0-15.0); Lymphocyte % 44.9 % (19-41); Mean Corp Hgb Conc 33.8 g/dL (32-36); Mean Corpuscular Hgb 31.1 pg (27.0-32.0); Mean Platelet Vol. 9.6 fl (6.2-12.0); Monocyte# 0.26 X10^3/uL; Monocyte% 8.3 % (0-10); NRBC Flagged by Analyzer 0 % (0-5); Neutrophil # 1.41 X10^3/uL (2.7-7.7); Neutrophil % 45.2 % (47-70); Platelet Count 117 K/mm3 (150-450); RBC Distribution Width SD 47.5 fl (35.1-43.9); Red Blood Count 4.27 M/mm3 (4.2-5.4); White Blood Count 3.1 K/mm3 (4.4-11.0)
--- NOTE | 2024-08-29 21:35 | RAD_ITS ---
PROCEDURE: CHEST PA AND LATERAL REASON FOR EXAM: Hypertension TECHNIQUE: Frontal and lateral views of the chest. COMPARISON: 01/29/2022 FINDINGS: The heart size is normal. The mediastinal contour is unremarkable. The lungs are clear. The bones are unremarkable. RAD/Chest PA and Lateral IMPRESSION: No radiographic evidence of acute cardiopulmonary disease Reading Location: [facility]
[2024-08-29 21:44] LABS: D-Dimer Quantitative (DVT/PE) 0.34 FEU/ug/m (0.27-0.49)
[2024-08-29 22:06] LABS: Anion Gap 11 (5-15); BUN 23 mg/dL (4-19); BUN/Creat Ratio 28.4 RATIO (10-20); Calcium 9.1 mg/dL (7.6-11.0); Carbon Dioxide 22.8 mmol/L (22.0-29.0); Chloride 103 mmol/L (96-108); Creatinine, Serum 0.81 mg/dL (0.70-1.20); EST Glomerular Filtration Rate 79 (>60); Estimated Creatinine Clearance 63.22 ml/min (50-250); Glucose 84 mg/dL (70-99); Potassium 4.5 mmol/L (3.3-5.1); Sodium Level 137 mmol/L (133-145)
[2024-08-29] MEDS: cloNIDine HCl 0.1 MG Tablet PO (22:33)
[2024-08-29 22:36] VITALS: BP 173/85; PULSE 76; RESP 21; TEMP 36.7; O2SAT 99
== END 2024-08-29 22:37 | disposition home or self-care (01) ==
PROVIDERS: Emergency Provider Emergency Medicine; PCP Internal Medicine; Visit Provider Emergency Medicine
DX: I10 Essential (primary) hypertension (principal); R60.0 Localized edema; Z87.891 Personal history of nicotine dependence
CPT/HCPCS: 71046; 80048; 85025; 85379; 93005; 99285; A4216

== ENCOUNTER 2025-01-04 08:44 | Day surgery (SDC) | payer MEDICARE, MEDICAID, SELFPAY ==
[2025-01-04] VITALS (8 sets, daily range): BP systolic 124–152; BP diastolic 73–125; PULSE 66–73; RESP 16–18; TEMP 36.2–36.4; O2SAT 99–100; BMI 32.9
--- NOTE | 2025-01-04 09:17 | PCM.HP.STD ---
HPI - General General Date of Admission: 01/04/25 Date of Service: 01/04/25 Chief Complaint: Colonoscopy HPI Narrative MARGIE RAMOS, is a 69 F who presents for colonoscopy. The patient is a 69-year-old female who is being seen today for change of bowel movements and need for colonoscopy. She has never had a previous colonoscopy although she has had 2 previous Cologuard test which have both been negative. Patient states that beginning in the fall 2023, she began having periodic episodes of explosive diarrhea. She states that this generally occurs about once every 2 weeks on average. In between her bowel movements seem generally normal. She initially thought that this may be associated with dairy intake. She did decrease some of her dietary dairy products which she states did seem to help however she is still having periodic episodes of diarrhea. This is such that she sometimes cannot make it to the bathroom in time. She was recommended by her PCP to undergo colonoscopy. [facility] Medical History (Updated 01/03/25 @ 10:17 by Eve Kauffman) Wears glasses Post-menopausal Seizures Gastric reflux Former smoker History of edema History of echocardiogram History of stress test Diarrhea Change in bowel habit Bronchitis Anxiety Attention deficit disorder (ADD) in adult Alcohol dependence Alcohol abuse TMJ arthralgia Chronic use of benzodiazepine for therapeutic purpose Family history of bipolar disorder Tobacco dependence in remission Heavy alcohol use Skull fracture with cerebral contusion Intraparenchymal hemorrhage of brain Fibromyalgia GERD (gastroesophageal reflux disease) Hypertension Home Medications ?Medication ?Instructions ?Recorded ?Last Taken ?Type divalproex 500 mg tablet,delayed 500 mg PO BID #60 tabs 07/22/22 01/04/25 04:00 Rx release (Depakote) hydrochlorothiazide 12.5 mg capsule 12.5 mg PO QDAY 12/07/24 01/02/25 History lisinopril 5 mg tablet 5 mg PO QDAY 12/07/24 01/02/25 History Allergy/AdvReac Type Severity Reaction Status Date / Time Latex, Natural Rubber AdvReac Itching Verified 01/04/25 09:14 pseudoephedrine AdvReac makes me Verified 01/04/25 09:14 feel crazy Family History Mother SAH (subarachnoid hemorrhage) Father CAD (coronary artery disease) first [place] at 55 YOA and at 71 of CVD Brother Alcoholism Bipolar disorder (manic depression) Surgical History (Updated 01/03/25 @ 10:17 by Eve Kauffman) History of right oophorectomy S/P percutaneous endoscopic gastrostomy (PEG) tube placement History of craniotomy (~2020) Social History household members: none number of children: 2 current occupational status: unemployed 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 substance use type: marijuana additional social history: has a significant other who is an alcoholic. she has been seen at the [facility] in the past by Yris Bird. She was on an antidepressant in the 80's but can not recall the name. Takes Lorazepam when she can not sleep. ROS Constitutional Constitutional: Reports systems reviewed and no addt'l complaints, except as documented Eyes Eyes: Reports systems reviewed and no addt'l complaints, except as documented ENT HEENT: Reports systems reviewed and no addt'l complaints, except as documented Cardiovascular Cardiovascular: Reports systems reviewed and no addt'l complaints, except as documented Physical Exam Const alert, oriented x3 and no apparent distress Assessment & Plan Assessment/Plan (1) Change in bowel habit: PLAN: Plan Plan is for colonoscopy today Charges/Coding Visit Charges Inpatient E&M: 67298 Init Hosp L2
[2025-01-04] MEDS: Lactated Ringers 1,000 ML 15 ML IV (09:30)
--- NOTE | 2025-01-04 09:45 | COLBX_PTH ---
PATIENT: MARGIE RAMOS LOC: [facility] U#:[id number] AGE/SX: 69/F ROOM: RE01/04/[address]: Dr. Jim Willard MD : 1955 BED: DIS: 01/04/2025 SPEC #: [id number] RECD: 01/04/25 11:21 STATUS: ISRRAEL GOODRICH #: [id number] MONE: 01/04/25 09:[address]: Jim Willard DEPT: SURGICAL PATHOLOGY RECD BY: Skylar Gonzales ENTERED: 01/04/25 12:03 SP TYPE: COLON BX OTHR DR: Dr. Jamie Collins MD Tissues: A - Ascending colon B - Ascending colon C - COLON BIOPSY D - Sigmoid colon biopsy Procedures: Surgery Specimen Level IV HEADER OPERATION: Colonoscopy with biopsy and polypectomy PRE-OP DIAGNOSIS: Change in bowel habit TISSUE SUBMITTED: A. Ascending colon polyp x2, B. Ascending colon polyp #3, hot snare, C. Random colon biopsy, D. Sigmoid colon polyp MICROSCOPIC DIAGNOSIS A. Ascending colon, polyp, biopsy: - Tubular adenoma. B. Ascending colon, polyp, biopsy: - Sessile serrated lesion. C. Colon, random, biopsy: - Focal active colitis without crypt distortion - see note. Note: Focal mild acute inflammation is noted without features of chronicity.? This is a nonspecific finding which may result from bowel prep artifact, mild infection, medication injury (eg: NSAIDs) and ischemia.? Recommend correlation with clinical and endoscopic findings. D. Sigmoid colon, biopsy: - Tubular adenoma. MICROSCOPIC DESCRIPTION Slides are reviewed. GROSS DESCRIPTION A. Received is one container labeled with the patient name and designated ascending colon polyp. The specimen consists of multiple irregular fragments of light hook soft tissue that measures 0.1 - 0.4 cm. The specimen is totally submitted in one cassette. B. Received is one container labeled with the patient name and designated ascending colon polyp. The specimen consists of multiple irregular fragments of light hook soft tissue that measures 0.1 - 0.3 cm. The specimen is totally submitted in one cassette. C. Received is one container labeled with the patient name and designated random colon. The specimen consists of multiple irregular fragments of light hook soft tissue that measures 0.1 - 0.7 cm. The specimen is totally submitted in one cassette. D. Received is one container labeled with the patient name and designated sigmoid colon. The specimen consists of multiple irregular fragments of light hook soft tissue that measures <0.1 - 0.8 cm. The specimen is totally submitted in one cassette. SC:juan 01/04/2025 CPT: 11861i3
--- NOTE | 2025-01-04 09:46 | PRE.ANES_ITS ---
ASA Classification* ASA Classification ASA Classification: 3 Assessment & Plan Anesthesia* Anesthesia Assessment Anesthesia Assessment: Discussed sedation and/or anesthesia options, risks, benefits, and alternatives with patient/parents/legal guardian/POA. Questions invited. The patient/parents/legal guardian/POA seems to understand and agrees to proceed with anesthesia plan. Reviewed the physical assessment, medical history, allergy history and patient home medications list prior to surgery/procedure/anesthetic and documented any changes. Performed airway and anesthesia risk assessments. Anesthesia Type Anesthesia Type: MAC History Source History Obtained from:: Patient and Chart Anesthesia Focused Assessment* Temperature: 97.2 F Pulse Rate: 66 Blood Pressure: 137/78 Respiratory Rate: 18 Pulse Ox: 100 Oxygen Delivery Method: Room Air Airway Assessment Mouth opens: >3 cm Mallampati Score: II Teeth Condition: Intact Neck Range of motion (ROM): Full ROM Labs Anesthesia Preop lab: CBC WBC 3.1 K/mm3 (4.4-11.0) L 08/29/24 21:08/29/24 RBC 4.27 M/mm3 (4.2-5.4) 08/29/24 21:20 08/29/24 Hgb 13.3 g/dL (12.0-15.0) 08/29/24 21:20 08/29/24 Hct 39.3 % (37-47) 08/29/24 21:20 08/29/24 Plt Count 117 K/mm3 (150-450) L 08/29/24 21:20 08/29/24 CHEMISTRY Potassium 4.5 mmol/L (3.3-5.1) 08/29/24 21:20 08/29/24 Sodium 137 mmol/L (133-145) 08/29/24 21:20 08/29/24 Magnesium 2.2 mg/dL (1.6-2.6) 01/29/22 12:35 01/29/22 Phosphorus 3.7 mg/dL (2.5-4.9) 01/04/21 05:05 01/04/21 BUN 23 mg/dL (4-19) H 08/29/24 21:20 08/29/24 Creatinine 0.81 mg/dL (0.70-1.20) 08/29/24 21:08/29/24 Glucose 84 mg/dL (70-99) 08/29/24 21:20 08/29/24 POC Glucose 103 mg/dL (70-110) 01/22/21 21:09 01/22/21 TSH 1.40 uIU/mL (0.358-3.74) 04/10/20 16:05 COAG PT 13.2 SECONDS (11.7-14.9) 07/22/22 13:35 Pre-Assessment Diagnosis/Proposed Procedure Planned Operative Procedure(s): CSCOPE Anesthesia History Anesthesia History - international banker: Anesthesia History - international banker Hx Hospitalization No 01/03/25 09:55 Any Problems With Anesthesia No 01/03/25 09:55 Cholinesterase deficiency No 01/03/25 09:55 You/Your Family Experience No 01/03/25 09:55 fever (hyperthermia) with Relationship Recent Exposure to Contagious No 01/04/25 09:16 Disease Does patient have nerve No 01/03/25 09:55 stimulator Patient instructed to have device shut off --Does patient have Pacemaker No 01/04/25 09:18 or ICD? When Was Last Pacemaker Check QUESTION #4 FULL TEXT: You/Your Family Experience fever (hyperthermia) with Anesthesia Last Oral Intake Last Oral intake: Last Oral Intake NPO since 08:00 01/04/25 09:18 Meds taken in AM with sips of Yes 01/04/25 09:18 water? Meds patient instructed to take am of surgery Any additional information?: Yes NPO since: 08:00 (Patient had water at 8 AM.) Meds taken in AM with sips of water?: Yes PONV PONV - international banker: PONV - international banker Female Yes 01/03/25 09:55 HX of Motion Sickness No 01/03/25 09:55 HX of N/V After Surgery No 01/03/25 09:55 Non-Smoker Yes 01/03/25 09:55 Duration of Surgery greater No 01/03/25 09:55 than 60 minutes Number of Risk Factors 2 01/03/25 09:55 PONV Score Moderate Risk 01/03/25 09:55 Height & Weight Height & Weight: Anesthesia: Height & Weight Height 4 ft 11.5 in 01/04/25 09:18 Weight: 75.206 kg 01/04/25 09:18 Body Mass Index (BMI) 32.9 01/04/25 09:18 Respiratory Assessment Respiratory Assessment - international banker: Respiratory Tract Infection Hx - international banker Hx Respiratory Tract Infection Yes: SEPTEMBER 2024 01/03/25 09:55 STOP Sleep Apnea STOP Sleep Apnea - international banker: STOP Sleep Apnea - international banker Hx Hypertension Yes 01/03/25 09:55 Hx Sleep Apnea No 01/03/25 09:55 CPAP BIPAP Do you snore loudly (louder No 01/03/25 09:55 than talking or can be heard Do you often feel tired/ No 01/03/25 09:55 fatigued/ sleepy during daytime? Has anyone observed you stop No 01/03/25 09:55 breathing during sleep? STOP Results Negative 01/03/25 09:55 QUESTION #5 FULL TEXT : Do you snore loudly (louder than talking or can be heard through closed doors)? Tobacco Use History Tobacco Use History - international banker: Tobacco Use History - international banker Tobacco Use Cigarettes 01/24/21 22:06 Smoking Status Former smoker 01/03/25 09:55 Hx Tobacco Use No 01/03/25 09:55 Years Smoking Packs Smoked per Day Smoking Cessation Date was No - quit smoking greater 01/03/25 09:55 within the last 15 years than 15 years ago Hx Smoking Cessation Date 06/30/00 01/03/25 09:55 Hx Smoking Cessation Counseling Hematologic Medial History Hematologic Hx - international banker: Hematologic Medical Hx - scanning coordinator Hx of Blood Transfusion No 01/03/25 09:55 Hx of Transfusion in last 3 No 01/03/25 09:55 Months Date of Last Transfusion (if within last 3 months) Ever experience any problems No 01/03/25 09:55 with transfusion(s)? Specify any problems Hx of Preganancy in last 3 N/A 01/03/25 09:55 Months Nurse Filling Out Transfusion NBUCHER 01/03/25 09:55 & Questions: Date: 01/03/25 01/03/25 09:55 Time: 09:57 01/03/25 09:55 Patient unable to answer at this time (ie. confused, unrespo /Reproduction History /Reproductive History - international banker: /Reproductive Hx- international banker Hx Now No 01/03/25 09:55 Gestational Age (in weeks): EDC: Hx Hx Para Hx Section SAB No 01/03/25 09:55 Active Medications Active Medications: Current Medications Generic Name Dose Route Start Last Admin Trade Name Freq PRN Reason Stop Dose Admin Lactated Ringer's 1,000 mls @ 15 mls/hr 01/04/25 09:00 01/04/25 09:30 IV 15 mls/hr .Q48H MARIA EUGENIA Administration PFSH Medical History Wears glasses Post-menopausal Seizures Gastric reflux Former smoker History of edema History of echocardiogram History of stress test Diarrhea Change in bowel habit Bronchitis Anxiety Attention deficit disorder (ADD) in adult Alcohol dependence Alcohol abuse TMJ arthralgia Chronic use of benzodiazepine for therapeutic purpose Family history of bipolar disorder Tobacco dependence in remission Heavy alcohol use Skull fracture with cerebral contusion Intraparenchymal hemorrhage of brain Fibromyalgia GERD (gastroesophageal reflux disease) Hypertension Home Medications ?Medication ?Instructions ?Recorded ?Last Taken ?Type divalproex 500 mg tablet,delayed 500 mg PO BID #60 tab s 07/22/22 01/04/25 04:00 Rx release (Depakote) hydrochlorothiazide 12.5 mg capsule 12.5 mg PO QDAY 01/02/25 History lisinopril 5 mg tablet 5 mg PO QDAY 12/07/24 History Allergy/AdvReac Type Severity Reaction Status Date / Time Latex, Natural Rubber AdvReac Itching Verified 01/04/25 09:14 pseudoephedrine AdvReac makes me Verified 01/04/25 09:14 feel crazy Family History Mother SAH (subarachnoid hemorrhage) Father CAD (coronary artery disease) first NV at 55 YOA and at 71 of CVD Brother Alcoholism Bipolar disorder (manic depression) Surgical History History of right oophorectomy S/P percutaneous endoscopic gastrostomy (PEG) tube placement History of craniotomy (~2020) Social History household members: none number of children: 2 current occupational status: unemployed 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 substance use type: marijuana additional social history: has a significant other who is an alcoholic. she has been seen at the [facility], [place] in the past by Yris Bird. She was on an antidepressant in the 80's but can not recall the name. Takes Lorazepam when she can not sleep. Review of Systems (Anesthesia) ROS Narrative System reviewed and no additional complaints, except as documented.
--- NOTE | 2025-01-04 10:54 | PCM.POST.ANE ---
Anesthesia: Postop Eval I Current Vital Signs Temperature: 97.1 F Pulse Rate: 73 Blood Pressure: 139/80 Respiratory Rate: 16 Pulse Ox: 100 Oxygen Delivery Method: Room Air Assessment Airway patent: Yes Spontaneous unlabored respirations: Yes Mental status: Asleep nausea: No Vomiting: No Anesthesia Complication: No Fluid Hydration Crystalloid volume administer (ml): 800 Total IV fluid infused: 800 Progress Note Anesthesia document: Postop Eval 1 completed: Yes
--- NOTE | 2025-01-04 11:00 | OP.CCLET_ITS ---
01/04/2025 Jamie Collins [address] [place] [address] Re : Colonoscopy procedure for Mago Parkinson Dear Dr. Collins This procedure was performed on Saturday, January 04, 2025. My impressions and recommendations are as follows: Impressions : - One 3 mm polyp in the ascending colon, removed with a cold biopsy forceps. Resected and retrieved. - One 6 mm polyp in the ascending colon, removed with a hot snare. Resected and retrieved. - One 4 mm polyp in the sigmoid colon, removed with a cold biopsy forceps. Resected and retrieved. Biopsied. Recommendations : - Discharge patient to home (ambulatory). - High fiber diet. - Await pathology results. - Repeat colonoscopy in 5 years for surveillance based on pathology results. - Return to my office PRN. - Continue present medications. My findings are described in the full procedure note, which is enclosed. If I can be of further assistance, please feel free to contact me at . Sincerely, Jim Willard MD 01/04/2025 10:59:49 AM This report has been signed electronically.
--- NOTE | 2025-01-04 11:00 | OP.COLON_ITS ---
Patient Name: Mago Salgado Procedure Date: 01/04/2025 9:58 AM Date of : 1955 Age: 69 Procedure: Colonoscopy Indications: Clinically significant diarrhea of unexplained origin Providers: Jim Willard MD Referring MD: Jamie Collins Medicines: Monitored Anesthesia Care Patient Profile: Refer to note in patient chart for documentation of history and physical. Last Colonoscopy: none. The patient's first colonoscopy is today. Refer to note in patient chart for documentation of history and physical. Complications: No immediate complications. Estimated blood loss: Minimal. Procedure: Pre-Anesthesia Assessment: - Prior to the procedure, a History and Physical was performed, and patient medications and allergies were reviewed. The patient's tolerance of previous anesthesia was also reviewed. The risks and benefits of the procedure and the sedation options and risks were discussed with the patient. All questions were answered, and informed consent was obtained. Prior Anticoagulants: The patient has taken no anticoagulant or antiplatelet agents. ASA Grade Assessment: II - A patient with mild systemic disease. After reviewing the risks and benefits, the patient was deemed in satisfactory condition to undergo the procedure. After I obtained informed consent, the scope was passed under direct vision. Throughout the procedure, the patient's blood pressure, pulse, and oxygen saturations were monitored continuously. The colonoscope was introduced through the anus and advanced to the cecum, identified by appendiceal orifice and ileocecal valve. The ileocecal valve, appendiceal orifice, and rectum were photographed. The entire colon was well visualized. The colonoscopy was performed without difficulty. The patient tolerated the procedure well. The quality of the bowel preparation was good. Moderate Sedation: See the other procedure note for documentation of moderate sedation with intraservice time. Scope In: 10:09:31 AM Scope Withdrawal Time 0 hours 22 minutes 28 seconds Scope Out: 10:43:26 AM Total Procedure Duration Time 0 hours 33 minutes 55 seconds Findings: The perianal and digital rectal examinations were normal. A 3 mm polyp was found in the ascending colon. The polyp was semi-sessile. The polyp was removed with a cold biopsy forceps. Resection and retrieval were complete. Verification of patient identification for the specimen was done by the nurse using the patient's name, date and medical record number. Estimated blood loss was minimal. A 6 mm polyp was found in the ascending colon. The polyp was semi-sessile. The polyp was removed with a hot snare. Resection and retrieval were complete. Verification of patient identification for the specimen was done by the nurse using the patient's name, date and medical record number. Estimated blood loss was minimal. A 4 mm polyp was found in the sigmoid colon. The polyp was semi-sessile. The polyp was removed with a cold biopsy forceps. Resection and retrieval were complete. Verification of patient identification for the specimen was done by the nurse using the patient's name, date and medical record number. Estimated blood loss was minimal. Biopsies (random) were taken with a cold forceps from the entire colon. These biopsy specimens from the entire colon were sent to Pathology. Verification of patient identification for the specimen was done by the nurse using the patient's name, date and medical record number. Impression: - One 3 mm polyp in the ascending colon, removed with a cold biopsy forceps. Resected and retrieved. - One 6 mm polyp in the ascending colon, removed with a hot snare. Resected and retrieved. - One 4 mm polyp in the sigmoid colon, removed with a cold biopsy forceps. Resected and retrieved. Biopsied. Recommendation: - Discharge patient to home (ambulatory). - High fiber diet. - Await pathology results. - Repeat colonoscopy in 5 years for surveillance based on pathology results. - Return to my office PRN. - Continue present medications. Procedure Code(s): --- Professional --- 87283, Colonoscopy, flexible; with removal of tumor(s), polyp(s), or other lesion(s) by snare technique 71143, 59, Colonoscopy, flexible; with biopsy, single or multiple Diagnosis Code(s): --- Professional --- D12.2, Benign neoplasm of ascending colon R19.7, Diarrhea, unspecified D12.5, Benign neoplasm of sigmoid colon CPT copyright 2021 [employer]. All rights reserved. The codes documented in this report are preliminary and upon director call center sales review may be revised to meet current compliance requirements. Jim Willard MD 01/04/2025 10:59:49 AM This report has been signed electronically. Number of Addenda: 0 Note Initiated On: 01/04/2025 9:58 AM
--- NOTE | 2025-01-04 14:53 | PCM.POSTANE2 ---
Anesthesia Postop Eval I Sum Postop Eval Completion status Anesthesia document: Postop Eval 1 completed: Yes Anesthesia Postop Eval I Summary Anesthesia Postop Eval I Summary: Anesthesia Postop Eval I: Assessment Summary Airway patent Yes 01/04/25 10:55 [email or web address] Spontaneous unlabored Yes 01/04/25 10:55 [email or web address] respirations Mental status Asleep 01/04/25 10:55 [email or web address] nausea No 01/04/25 10:55 [email or web address] Vomiting No 01/04/25 10:55 [email or web address] Anesthesia Postop Eval I: Fluid Summary Crystalloid volume administer 800 01/04/25 10:55 [email or web address] (ml) Colloids volume administered ( ml) Blood Product volume administered (ml) Total IV fluid infused 800 01/04/25 10:55 [email or web address] Anesthesia Postop Eval I: Summary Notes Anesthesia Complication No 01/04/25 10:55 [email or web address] Anesthesia Complication Comment: Post-operative progress note Anesthesia: Postop Eval II Evaluation Mental status: Awake and Calm Pain Level: 0 nausea: No Vomiting: No Complications Anesthesia Complication: No
== END 2025-01-04 12:35 | disposition home or self-care (01) ==
LOC: EN 08:46 → AC 08:48
PROVIDERS: PCP Internal Medicine; Referring Provider Internal Medicine; Visit Provider Surgery
PROC: 0DJD8ZZ Inspection of Lower Intestinal Tract, Via Natural or Artificial Opening Endoscopic (ICD-10-PCS; CPT 45378; principal; 2025-01-04 09:40)
DX: D12.2 Benign neoplasm of ascending colon (principal); D12.5 Benign neoplasm of sigmoid colon; K52.89 Other specified noninfective gastroenteritis and colitis; I10 Essential (primary) hypertension; Z79.899 Other long term (current) drug therapy; Z87.891 Personal history of nicotine dependence
CPT/HCPCS: 45385; 45380; 88305; J2405